=== PATIENT | male | born 1970 | race American Indian/Alaskan Native ===

== ENCOUNTER 2017-01-28 14:18 | Emergency (ER) | payer MEDICAID ==
[2017-01-28 14:41] VITALS: BP 154/106
[2017-01-28 15:05] LABS: Basophils % (Auto) 0.8 % (0.0-1.8); Eosinophils % (Auto) 0.6 % (0.0-4.3); Hematocrit 38.3 % (35.5-45.6); Hemoglobin 12.6 gm/dl (11.8-15.2); Mean Corpuscular HGB Conc 33 % (32-34); Mean Corpuscular Hemoglobin 29 pg (28-32); Mean Corpuscular Volume 88 fl (84-94); Platelet Count 251 K/mm3 (140-440); Red Blood Count 4.34 M/mm3 (3.65-5.03); Red Cell Distribution Width 14.3 % (13.2-15.2); White Blood Count 11.6 K/mm3 (4.5-11.0)
[2017-01-28 15:22] LABS: Albumin 4.2 g/dL (3.9-5); Albumin/Globulin Ratio 1.4 %; BUN/Creatinine Ratio 13.2; Bilirubin,Total 0.3 mg/dL (0.1-1.2); Calcium 9.2 mg/dL (8.4-10.2); Chloride 107.7 mmol/L (98-107); Potassium 4.1 mmol/L (3.6-5.0); Total Protein 7.1 g/dL (6.3-8.2)
--- NOTE | 2017-01-28 17:11 | Emergency Department Report ---
Entered by OLGA LIDIA OROSCO, acting as scribe for SANTOS NGUYEN PA. <SANTOS NGUYEN - Last Filed: 01/28/17 17:10> ED General Adult HPI - General Chief complaint: Hypoglycemia Stated complaint: HYPOGLYCEMIA Time Seen by Provider: 01/28/17 16:47 Source: EMS Mode of arrival: Ambulatory Limitations: No Limitations - History of Present Illness Initial comments: 46 y/o male, Hx of IDDM, presents to the ED via EMS c/o hypoglycemic episode that occurred today. The patient states that he gave himself his insulin injection this morning, but then forgot to eat food following the injection. He denies LOC at the time of the episode. EMS treatment [employer] includes D50 amp and initial glucose check of 23. Patient states his symptoms are improved in the ED following EMS D50 and eating food. MD Complaint: Hypoglycemia -: This morning Radiation: non-radiation Consistency: constant (now improved in the ED) Improves with: eating, other (EMS supplemental glucose) Worsens with: none Associated Symptoms: denies other symptoms Treatments Prior to Arrival: other (EMS supplemental glucose) - Related Data Home Medications Medication Instructions Recorded Confirmed Last Taken Insulin Lispro [HumaLOG VIAL] 0 units SQ AC 04/18/16 04/18/16 04/18/16 Losartan [Cozaar] 0 mg PO QDAY 04/18/16 04/18/16 Unknown Allergies Allergy/AdvReac Type Severity Reaction Status Date / Time No Known Allergies Allergy Unverified 05/15/16 07:36 ED Review of Systems Comment: All other systems reviewed and negative Constitutional: denies: chills, fever Respiratory: denies: shortness of breath Cardiovascular: denies: chest pain Gastrointestinal: denies: abdominal pain, nausea, vomiting, diarrhea Musculoskeletal: denies: back pain, joint swelling, arthralgia Skin: denies: rash Neurological: denies: numbness, other (LOC) ED Past Medical Hx - Past Medical History Hx Hypertension: Yes Hx CVA: Yes Hx Congestive Heart Failure: No Hx Diabetes: Yes Hx Headaches / Migraines: No Hx Seizures: Yes Hx Asthma: No Hx COPD: No Hx Tuberculosis: No (skin test positive chest xray negative) Additional medical history: brain aneurysm - Social History Smoking Status: Never Smoker Substance Use Type: None - Medications Home Medications: Home Medications Medication Instructions Recorded Confirmed Last Taken Type Insulin Lispro [HumaLOG VIAL] 0 units SQ AC 04/18/16 04/18/16 04/18/16 History Losartan [Cozaar] 0 mg PO QDAY 04/18/16 04/18/16 Unknown History ED Physical Exam - General Limitations: No Limitations General appearance: alert, in no apparent distress - Head Head exam: Present: atraumatic, normocephalic - Eye Eye exam: Present: normal appearance, PERRL, EOMI - ENT ENT exam: Present: mucous membranes moist - Neck Neck exam: Present: normal inspection. Absent: lymphadenopathy - Respiratory Respiratory exam: Present: normal lung sounds bilaterally. Absent: respiratory distress - Cardiovascular Cardiovascular Exam: Present: regular rate - GI/Abdominal GI/Abdominal exam: Present: soft, normal bowel sounds - Extremities Exam Extremities exam: Present: normal inspection - Back Exam Back exam: Present: normal inspection - Neurological Exam Neurological exam: Present: alert, oriented X3, CN II-XII intact, normal gait. Absent: motor sensory deficit - Psychiatric Psychiatric exam: Present: normal affect, normal mood - Skin Skin exam: Present: warm, dry, intact, normal color. Absent: rash, cyanosis, diaphoretic ED Course Vital Signs 01/28/17 14:37 Temperature 97.7 F Pulse Rate 73 Respiratory 20 Rate Blood Pressure 154/106 - Reevaluation(s) Reevaluation #1: 01/28/17 17:01 Patient smiling awake alert and oriented answering questions. Patient insisting that he is ready to go home's eaten multiple same which is greater ease and drank several orange juices while waiting here in the ER. ED Medical Decision Making - Lab Data Result diagrams: 01/28/17 14:49 01/28/17 14:49 ED Disposition Disposition: DISCHARGED TO HOME OR SELFCARE Is pt being admited?: No Condition: Stable Instructions: Diabetic Hypoglycemia (ED) Referrals: PRIMARY CARE,MD [Primary Care Provider] - 3-5 Days <JEREMIAH CABELLO - Last Filed: 01/28/17 19:13> ED Medical Decision Making - Lab Data Result diagrams: 01/28/17 14:49 01/28/17 14:49 This documentation as recorded by the KWESI wall JASMINE,accurately reflects the service I personally performed and the decisions made by ,SANTOS NGUYEN PA.
== END 2017-01-28 17:05 | disposition home or self-care (01) ==
LOC: ED 14:18
DX: E11.649 Type 2 diabetes mellitus with hypoglycemia without coma (principal); I10 Essential (primary) hypertension; R56.9 Unspecified convulsions; Z79.4 Long term (current) use of insulin; Z86.73 Personal history of transient ischemic attack (TIA), and cerebral infarction without residual deficits
CPT/HCPCS: 36415; 80053; 82962; 85025; 99284

== ENCOUNTER 2017-02-26 23:29 | Emergency (ER) | payer MEDICAID ==
[2017-02-27] MEDS: D50W (25GM) IV ONE ×3 (00:10→00:38)
[2017-02-27] MEDS ORDERED: D50W (25GM) IV ONE (00:29)
--- NOTE | 2017-02-27 00:40 | Emergency Department Report ---
ED General Adult HPI - General Chief complaint: Hypoglycemia Stated complaint: HYPOGLYCEMIA Time Seen by Provider: 02/27/17 00:27 Source: patient, EMS, RN notes reviewed Mode of arrival: Stretcher Limitations: No Limitations - History of Present Illness Initial comments: this is a 46-year-old male. He is previously unknown to me. Has a past medical history of diabetes, renal insufficiency, hypertension. Also has a history of brain aneurysm. The patient is brought to the hospital by EMS for hypoglycemia. As per EMS documentation, "patient complains of taking too much insulin and is unresponsive." EMS documents the patient was found lying in the floor, supine, unresponsive. Family member indicated to EMS the patient took an extra insulin shots. EMS gave D50 in the field, with clinical improvement. The patient reports to me that his sugar was high today, and that he does some self according to his sliding scale. He reports that he did not eat much of anything today. The patient had a transient episode of decreased responsiveness and hypoglycemia in the ER, he was given an additional 3 A of D50 and fed. The patient denies all complaints at this time. He specifically denies headache , neck pain, chest pain, abdominal pain, shortness of breath, negative obstructive urinary symptoms. He denies extremity weakness, and extremity numbness. -: Sudden Consistency: now resolved Improves with: eating, medication Associated Symptoms: denies other symptoms - Related Data Home Medications Medication Instructions Recorded Confirmed Last Taken Insulin Lispro [HumaLOG VIAL] 0 units SQ AC 04/18/16 04/18/16 04/18/16 Losartan [Cozaar] 0 mg PO QDAY 04/18/16 04/18/16 Unknown Allergies Allergy/AdvReac Type Severity Reaction Status Date / Time No Known Allergies Allergy Unverified 05/15/16 07:36 ED Review of Systems ROS: Stated complaint: HYPOGLYCEMIA Other details as noted in HPI Constitutional: denies: fever Eyes: denies: vision change ENT: denies: epistaxis Respiratory: denies: cough Cardiovascular: denies: chest pain Gastrointestinal: denies: abdominal pain, nausea, diarrhea Genitourinary: denies: urgency, dysuria Musculoskeletal: denies: back pain, joint swelling, arthralgia Skin: denies: rash Neurological: denies: headache Psychiatric: as per HPI ED Past Medical Hx - Past Medical History Previous Medical History?: Yes Hx Hypertension: Yes Hx CVA: Yes Hx Congestive Heart Failure: No Hx Diabetes: Yes Hx Headaches / Migraines: No Hx Seizures: Yes Hx Asthma: No Hx COPD: No Hx Tuberculosis: No (skin test positive chest xray negative) Additional medical history: brain aneurysm - Social History Smoking Status: Never Smoker Substance Use Type: None - Medications Home Medications: Home Medications Medication Instructions Recorded Confirmed Last Taken Type Insulin Lispro [HumaLOG VIAL] 0 units SQ AC 04/18/16 04/18/16 04/18/16 History Losartan [Cozaar] 0 mg PO QDAY 04/18/16 04/18/16 Unknown History ED Physical Exam - General Limitations: No Limitations General appearance: alert, in no apparent distress - Head Head exam: Present: atraumatic, normocephalic - Eye Eye exam: Present: normal appearance, PERRL, EOMI. Absent: nystagmus - ENT ENT exam: Present: normal exam, normal orophraynx, mucous membranes moist, normal external ear exam - Neck Neck exam: Present: normal inspection, full ROM. Absent: tenderness, meningismus - Respiratory Respiratory exam: Present: normal lung sounds bilaterally. Absent: respiratory distress, wheezes, rales, rhonchi, stridor, chest wall tenderness, accessory muscle use, decreased breath sounds - Cardiovascular Cardiovascular Exam: Present: regular rate, normal rhythm, normal heart sounds. Absent: bradycardia, tachycardia, irregular rhythm, systolic murmur, diastolic murmur, rubs, gallop - GI/Abdominal GI/Abdominal exam: Present: soft, normal bowel sounds. Absent: distended, tenderness, guarding, rebound, rigid, pulsatile mass - Rectal Rectal exam: Present: deferred - Extremities Exam Extremities exam: Present: normal inspection, full ROM, normal capillary refill. Absent: tenderness, pedal edema, joint swelling - Back Exam Back exam: Present: normal inspection, full ROM. Absent: tenderness, CVA tenderness (R), CVA tenderness (L), muscle spasm, paraspinal tenderness, vertebral tenderness - Neurological Exam Neurological exam: Present: alert, oriented X3, normal gait, other (Extraocular movements intact. Tongue midline. No facial droop. Facial sensation intact to light touch in the V1, V2, V3 distribution bilaterally. 5 and 5 strength in 4 extremities.. Sensation is intact to light touch in 4 extremities.). Absent : motor sensory deficit - Psychiatric Psychiatric exam: Present: normal affect, normal mood - Skin Skin exam: Present: warm, dry, intact, normal color. Absent: rash ED Course Vital Signs 02/27/17 02/27/17 02/27/17 00:12 00:16 00:21 Temperature 97.5 F L Pulse Rate 70 Respiratory 18 16 Rate Blood Pressure 146/89 Blood Pressure [Left] O2 Sat by Pulse 99 Oximetry 02/27/17 02/27/17 02/27/17 00:30 01:00 01:06 Temperature 97.4 F L Pulse Rate 63 76 Respiratory 17 17 Rate Blood Pressure 152/92 143/80 Blood Pressure [Left] O2 Sat by Pulse 98 100 Oximetry 02/27/17 02/27/17 01:30 02:09 Temperature 98.2 F Pulse Rate 72 81 Respiratory 21 18 Rate Blood Pressure 139/83 Blood Pressure 139/85 [Left] O2 Sat by Pulse 98 99 Oximetry - Reevaluation(s) Reevaluation #1: 02/27/17 01:22 differential diagnosis: Pneumonia, hypoglycemia, urinary tract infection, hypoglycemia secondary to overzealous insulin and menstruation. Assessment and plan: 46-year-old male with hypoglycemia in the context of poor oral intake and extra insulin injection. He is afebrile with reassuring vital signs, has a GCS of 15, with an NIH score of 0.Patient is clinically sober at this time. The cervical spine is cleared through nexus and [place] c spine rule Patient's laboratory studies are unremarkable. His renal insufficiency is chronic. Chest x-ray unremarkable, urinalysis not consistent with urinary tract infection. The patient is observed in the ER for a prolonged period of time. After eating, and receiving 3 A of D50, Accu-Chek remained stable. The patient is going to be discharged with her brother/family member, who feels comfortable to watch the patient and to monitor his blood sugar at home. Reevaluation #2: 02/27/17 02:13 repeat Accu-Chek appropriate. The patient's family to pick him up. The patient retains normal mental status. His repeat neurologic examination is unremarkable. He has been observed in the ER for 3 hours. He will be discharged with family, who feel comfortable to watch him. Return precautions are reviewed. ED Medical Decision Making - Lab Data Result diagrams: 02/27/17 00:24 02/27/17 00:24 Vital Signs 02/27/17 02/27/17 02/27/17 00:12 00:16 00:21 Temperature 97.5 F L Pulse Rate 70 Respiratory 18 16 Rate Blood Pressure 146/89 O2 Sat by Pulse 99 Oximetry 02/27/17 02/27/17 02/27/17 00:30 01:00 01:06 Temperature 97.4 F L Pulse Rate 63 76 Respiratory 17 17 Rate Blood Pressure 152/92 143/80 O2 Sat by Pulse 98 100 Oximetry Labs 02/27/17 02/27/17 02/27/17 00:24 00:24 00:37 WBC 10.0 RBC 3.95 Hgb 11.7 L Hct 35.7 MCV 91 MCH 30 MCHC 33 RDW 14.9 Plt Count 235 Lymph % (Auto) 13.3 L [place] % (Auto) 7.4 H Eos % (Auto) 1.1 Baso % (Auto) 0.9 Lymph # 1.3 [place] # 0.7 Eos # 0.1 Baso # 0.1 Seg Neutrophils % 77.3 H Seg Neutrophils # 7.7 VBG pH 7.332 Sodium 144 Potassium 3.3 L Chloride 105.6 Carbon Dioxide 24 Anion Gap 18 BUN 26 H Creatinine 2.4 H Estimated GFR 35 BUN/Creatinine Ratio 10.83 Glucose 58 L POC Glucose Calcium 8.6 02/27/17 01:08 WBC RBC Hgb Hct MCV MCH MCHC RDW Plt Count Lymph % (Auto) [place] % (Auto) Eos % (Auto) Baso % (Auto) Lymph # [place] # Eos # Baso # Seg Neutrophils % Seg Neutrophils # VBG pH Sodium Potassium Chloride Carbon Dioxide Anion Gap BUN Creatinine Estimated GFR BUN/Creatinine Ratio Glucose POC Glucose 205 H Calcium - Radiology Data Radiology results: image reviewed interpreted by me: X-ray of the chest is negative for acute disease. Critical care attestation.: If time is entered above; I have spent that time in minutes in the direct care of this critically ill patient, excluding procedure time. ED Disposition Clinical Impression: Hypoglycemia Disposition: DISCHARGED TO HOME OR SELFCARE Is pt being admited?: No Does the pt Need Aspirin: No Condition: Stable Instructions: Diabetic Hypoglycemia (ED) Additional Instructions: Continue current outpatient medications. Make certain to eat if you are taking insulin. Follow-up with the primary care doctor within the next week. Return to the ER right away with fevers or chills, chest pain or shortness of breath, intractable nausea or vomiting, inability to tolerate liquid feeds. Dr. Cantrell is a local primary care doctor. [facility] is a local medical clinic. Referrals: PRIMARY CAREMD [Primary Care Provider] - 3-5 Days JAYCEE CANTRELL MD [Staff Physician] - 3-5 Days [facility] [Provider Group] - 3-5 Days
[2017-02-27 01:00] LABS: Basophils % (Auto) 0.9 % (0.0-1.8); Eosinophils % (Auto) 1.1 % (0.0-4.3); Hematocrit 35.7 % (35.5-45.6); Hemoglobin 11.7 gm/dl (11.8-15.2); Mean Corpuscular HGB Conc 33 % (32-34); Mean Corpuscular Hemoglobin 30 pg (28-32); Mean Corpuscular Volume 91 fl (84-94); Platelet Count 235 K/mm3 (140-440); Red Blood Count 3.95 M/mm3 (3.65-5.03); Red Cell Distribution Width 14.9 % (13.2-15.2)
[2017-02-27 01:07] LABS: BUN/Creatinine Ratio 10.83; Calcium 8.6 mg/dL (8.4-10.2); Chloride 105.6 mmol/L (98-107); Potassium 3.3 mmol/L (3.6-5.0)
[2017-02-27 01:47] LABS: Bilirubin,Urine NEG (Negative); Blood,Urine SM (Negative); Ketones,Urine NEG (Negative); Leukocyte Esterase,Urine NEG (Negative); Nitrite,Urine NEG (Negative); Urobilinogen,Urine < 2.0 mg/dL (<2.0)
[2017-02-27 02:11] VITALS: BP 139/85
--- NOTE | 2017-02-27 08:39 | XRay Report ---
AP CHEST: History: Cough. AP view of the chest demonstrates a normal mediastinal and cardiac contour with clear lungs and normal bony and soft tissue structures. IMPRESSION: Normal AP chest.
== END 2017-02-27 02:28 | disposition home or self-care (01) ==
LOC: ED 23:29
DX: E11.649 Type 2 diabetes mellitus with hypoglycemia without coma (principal); I10 Essential (primary) hypertension; Z86.73 Personal history of transient ischemic attack (TIA), and cerebral infarction without residual deficits; R56.9 Unspecified convulsions; Z79.4 Long term (current) use of insulin
CPT/HCPCS: 36415; 51701; 71010; 80048; 81001; 82805; 82962; 85025; 96374

== ENCOUNTER 2020-12-26 07:12 | Observation (INO) | payer MEDICAID ==
[2020-12-26] MEDS ORDERED: DEXTROSE 50% IN WATER (25GM) 50 ML SYRINGE IV ONE ×2 (07:20→07:26)
--- NOTE | 2020-12-26 07:32 | Emergency Department Report ---
ED General Adult HPI - General Chief complaint: Hypoglycemia Stated complaint: LOW BLOOD SUGAR Time Seen by Provider: 12/26/20 07:21 Source: EMS Mode of arrival: Stretcher Limitations: Altered Mental Status - History of Present Illness Initial comments: Patient is 50 years old male with history of brain aneurysm, diabetes and CVA. Patient brought to the emergency room via EMS from home after patient roommate called and said that patient is not on responding to him. EMS stated that patient blood glucose was 50. Patient given dextrose and start working up. Upon arrival to the ER patient still obtunded, repeat blood glucose showed a 30. Patient received D50 and started on dextrose 10. Patient immediately start working up. Patient is currently alert, oriented x3 in no acute distress. Patient denied any chest pain, shortness of breath, focal weakness numbness or tingling sensation. He also denied any headache or neck pain. -: Sudden, This morning - Related Data Home Medications Medication Instructions Recorded Confirmed Last Taken Aspirin [Lo-Dose Aspirin EC] 81 mg PO DAILY 09/02/17 09/02/17 09/01/17 AtorvaSTATin [Lipitor] 40 mg PO QHS 09/02/17 09/02/17 09/01/17 Insulin Glargine,Hum.rec.anlog 10 units SQ QHS 09/02/17 09/02/17 09/01/17 [Lantus] Lispro Insulin [HumaLOG] 10 unit SQ DAILY 09/02/17 09/02/17 09/01/17 Losartan/Hydrochlorothiazide 1 tab PO QDAY 09/02/17 09/02/17 09/01/17 [Hyzaar 100-25 TAB] Pioglitazone HCl [Actos] 45 mg PO DAILY 09/02/17 09/02/17 09/01/17 amLODIPine 10 mg PO DAILY 09/02/17 09/02/17 09/01/17 Allergies Allergy/AdvReac Type Severity Reaction Status Date / Time No Known Allergies Allergy Unverified 05/15/16 07:36 ED Review of Systems ROS: Stated complaint: LOW BLOOD SUGAR Other details as noted in HPI Comment: All other systems reviewed and negative Constitutional: denies: chills, fever Respiratory: denies: cough, shortness of breath, SOB with exertion, SOB at rest Cardiovascular: denies: chest pain Gastrointestinal: denies: abdominal pain, nausea, vomiting, diarrhea, constipation, hematemesis, melena, hematochezia Musculoskeletal: denies: back pain Neurological: confusion. denies: headache, weakness, numbness, paresthesias ED Past Medical Hx - Past Medical History Hx Hypertension: Yes Hx CVA: Yes Hx Congestive Heart Failure: No Hx Diabetes: Yes Hx Headaches / Migraines: No Hx Seizures: Yes Hx Asthma: No Hx COPD: No Hx Tuberculosis: No (skin test positive chest xray negative) Additional medical history: brain aneurysm - Social History Smoking Status: Current Every Day Smoker - Medications Home Medications: Home Medications Medication Instructions Recorded Confirmed Last Taken Type Aspirin [Lo-Dose Aspirin EC] 81 mg PO DAILY 09/02/17 09/02/17 09/01/17 History AtorvaSTATin [Lipitor] 40 mg PO QHS 09/02/17 09/02/17 09/01/17 History Insulin Glargine,Hum.rec.anlog 10 units SQ QHS 09/02/17 09/02/17 09/01/17 History [Lantus] Lispro Insulin [HumaLOG] 10 unit SQ DAILY 09/02/17 09/02/17 09/01/17 History Losartan/Hydrochlorothiazide 1 tab PO QDAY 09/02/17 09/02/17 09/01/17 History [Hyzaar 100-25 TAB] Pioglitazone HCl [Actos] 45 mg PO DAILY 09/02/17 09/02/17 09/01/17 History amLODIPine 10 mg PO DAILY 09/02/17 09/02/17 09/01/17 History ED Physical Exam - General Limitations: Altered Mental Status General appearance: alert, in no apparent distress - Head Head exam: Present: atraumatic, normocephalic, normal inspection - Eye Eye exam: Present: normal appearance, PERRL - ENT ENT exam: Present: normal exam, normal orophraynx, mucous membranes moist - Neck Neck exam: Present: normal inspection, full ROM. Absent: tenderness, meningismus - Respiratory Respiratory exam: Present: normal lung sounds bilaterally - Cardiovascular Cardiovascular Exam: Present: regular rate, normal rhythm, normal heart sounds - GI/Abdominal GI/Abdominal exam: Present: soft, normal bowel sounds. Absent: distended, tenderness, guarding, rebound, rigid, organomegaly, mass, bruit, pulsatile mass, hernia - Extremities Exam Extremities exam: Present: normal inspection, full ROM, normal capillary refill. Absent: pedal edema, calf tenderness - Back Exam Back exam: Present: normal inspection, full ROM. Absent: CVA tenderness (R), CVA tenderness (L) - Neurological Exam Neurological exam: Present: alert, oriented X3 - Psychiatric Psychiatric exam: Present: normal mood - Skin Skin exam: Present: warm, intact, normal color ED Course Vital Signs 12/26/20 12/26/20 12/26/20 07:27 07:30 07:31 Temperature 97.4 F L 97.4 F L Pulse Rate 91 H 91 H Respiratory 17 17 18 Rate Blood Pressure 173/107 Blood Pressure 173/107 [Left] O2 Sat by Pulse 99 99 Oximetry 12/26/20 08:17 Temperature Pulse Rate 82 Respiratory 16 Rate Blood Pressure Blood Pressure 169/104 [Left] O2 Sat by Pulse 100 Oximetry - Reevaluation(s) Reevaluation #1: 12/26/20 09:57 Patient now is alert, oriented x3 in no acute distress. Dextrose 10 at a rate of 125 mL/h is going. I discussed with the patient his kidney function he stated that he was told that his creatinine was 8 last time and they consider dialysis but he refused. Currently patient is denying any shortness of breath. His potassium is normal. ED Medical Decision Making - Lab Data Result diagrams: 12/26/20 08:01 12/26/20 08:01 - EKG Data -: EKG Interpreted by Me EKG shows normal: sinus rhythm Rate: normal - EKG Data Interpretation: no acute changes - Radiology Data Radiology results: report reviewed - Medical Decision Making Patient is 50 years old male with history of brain aneurysm, diabetes and CVA. Patient brought to the emergency room via EMS from home after patient roommate called and said that patient is not on responding to him. EMS stated that patient blood glucose was 50. Patient given dextrose and start working up. Upon arrival to the ER patient still obtunded, repeat blood glucose showed a 30. Patient received D50 and started on dextrose 10. Patient immediately start working up. Patient is currently alert, oriented x3 in no acute distress. Patient denied any chest pain, shortness of breath, focal weakness numbness or tingling sensation. He also denied any headache or neck pain. Labs reviewed and is unremarkable except for evaded creatinine and BUN which is chronic for patient. Patient stated that he took his insulin last night but he did not eat. CT brain is negative for acute finding. Chest x-ray is unremarkable. I discussed the patient with Dr. Gilles Lugo, he agreed to admit the patient to medical service for further management. Critical Care Time: Yes Critical care time in (mins) excluding proc time.: 30 Critical care attestation.: If time is entered above; I have spent that time in minutes in the direct care of this critically ill patient, excluding procedure time. ED Disposition Clinical Impression: Altered mental status, Elevated troponin, Acute metabolic encephalopathy due to hypoglycemia Disposition: OP ADMIT IP TO THIS HOSP Is pt being admited?: Yes Condition: Stable Referrals: PRIMARY CARE, [Primary Care Provider] - 3-5 Days
[2020-12-26 07:54] LABS: Bilirubin,Urine NEG (Negative); Blood,Urine NEG (Negative); Color,Urine Straw (Yellow); Urobilinogen,Urine < 2.0 mg/dL (<2.0); WBC,Urine < 1.0 /HPF (0.0-6.0)
[2020-12-26] MEDS ORDERED: DEXTROSE 10% IN WATER 1,000 ML IV SCH (08:00)
--- NOTE | 2020-12-26 08:13 | XRay Report ---
CHEST 1 VIEW INDICATION: Altered Mental Status. COMPARISON: None FINDINGS: Support devices: None. Heart: Within normal limits. Lungs/Pleura: No acute air space or interstitial disease. Additional findings: None. IMPRESSION: No acute findings. Signer Name: Elder Singh Jr, MD Signed: 12/26/2020 8:09 AM Workstation Name: [id number]
[2020-12-26 08:33] LABS: Basophils # (Auto) 0.1 K/mm3 (0.0-0.1); Basophils % (Auto) 0.8 % (0.0-1.8); Eosinophils % (Auto) 0.1 % (0.0-4.3); Hematocrit 31.3 % (35.5-45.6); Hemoglobin 10.3 gm/dl (11.8-15.2); Lymphocytes # (Auto) 0.7 K/mm3 (1.2-5.4); Lymphocytes % (Auto) 8.5 % (13.4-35.0); Mean Corpuscular HGB Conc 33 % (32-34); Mean Corpuscular Volume 96 fl (84-94); Monocytes # (Auto) 0.3 K/mm3 (0.0-0.8); Monocytes % (Auto) 3.8 % (0.0-7.3); Platelet Count 203 K/mm3 (140-440); Red Blood Count 3.27 M/mm3 (3.65-5.03); Red Cell Distribution Width 16.2 % (13.2-15.2)
[2020-12-26 08:45] LABS: Alanine Aminotransferase 56 units/L (7-56); Albumin 4.1 g/dL (3.9-5)
[2020-12-26 09:01] LABS: Bilirubin,Direct < 0.2 mg/dL (0-0.2)
--- NOTE | 2020-12-26 09:05 | Cat Scan Report ---
CT HEAD WITHOUT CONTRAST INDICATION : Altered Mental Status. TECHNIQUE: Axial imaging performed from the skull apex through the skull base without the use of con trast. Sagittal and coronal reformatted images. All CT scans at this location are performed using C T dose reduction for ALARA by means of automated exposure control. COMPARISON: 09/02/2017 FINDINGS: Parenchyma: No acute intracranial hemorrhage or parenchymal abnormality. Stable chronic lacunar infa rct in the left anterior thalamus. Stable 1 cm chronic infarct in the posterior left cerebellar hemis phere. Stable mild encephalomalacia in the right frontal lobe at site of previous ventricular cathete r. No evidence for hemorrhage or extra-axial fluid collection. Ventricles: Ventricles are normal in size and appear symmetric. Bones: No acute osseous abnormality. Sinuses: Sinuses and mastoid air cells are clear. Soft tissues: Soft tissues including the orbits appear normal. IMPRESSION: No acute abnormality. No significant change since 09/02/2017. Signer Name: Elder Singh Jr, MD Signed: 12/26/2020 9:01 AM Workstation Name: [id number]
[2020-12-26 09:39] LABS: Chol/HDL Ratio 2.67 %
[2020-12-26] MEDS ORDERED: ZOLPIDEM 5 MG TAB PO PRN (11:29)
[2020-12-26] MEDS ORDERED: ONDANSETRON 4 MG/2 ML INJ IV PRN (11:29)
[2020-12-26] MEDS ORDERED: MORPHINE 2 MG/1 ML INJ IV PRN (11:29)
[2020-12-26] MEDS ORDERED: ACETAMINOPHEN 325 MG TAB PO PRN (11:29)
[2020-12-26] MEDS ORDERED: DEXTROSE 50% IN WATER (25GM) 50 ML SYRINGE IV PRN (11:29)
--- NOTE | 2020-12-26 11:40 | History and Physical Report ---
History of Present Illness Date of examination: 12/26/20 Date of admission: 12/26/20 10:28 Chief complaint: Altered mental status History of present illness: 50-year-old male with a history of CVA, brain aneurysm, diabetes, chronic kidney disease stage III presents to the ED after a brief period of unresponsiveness. Patient was noted by roommate to be unresponsive to both verbal and tactile stimulus. 911 was called. Accu-Chek was obtained in the field with a measurement of 50. Patient was evaluated again upon ED and assessment revealed Accu-Chek of 30 at the time. Patient was placed on D10 and immediately began to awaken and become more responsive. Patient states this is happened maybe once before. Patient took his insulin and went to sleep and did not eat. Patient was aware that this was not the right thing to do was very educated. At present patient is alert oriented a little weak and listless but almost at baseline. Currently on D10 Past History Past Medical History: diabetes, hypertension, stroke Past Surgical History: No surgical history Social history: single, lives with family, smoking, full code. denies: alcohol abuse, prescription drug abuse, IV drug use Family history: diabetes, hypertension Medications and Allergies Allergies Allergy/AdvReac Type Severity Reaction Status Date / Time No Known Allergies Allergy Unverified 05/15/16 07:36 Home Medications Medication Instructions Recorded Confirmed Last Taken Type Aspirin [Lo-Dose Aspirin EC] 81 mg PO DAILY 09/02/17 12/26/20 09/01/17 History Insulin Glargine,Hum.rec.anlog 13 units SQ BID 09/02/17 12/26/20 09/01/17 History [Lantus] amLODIPine 10 mg PO DAILY 09/02/17 12/26/20 09/01/17 History Insulin Aspart (Nf) [Novolog] 0 unit SQ AC 12/26/20 12/26/20 Unknown History calcitrioL [Rocaltrol] 1 cap PO DAILY 12/26/20 12/26/20 Unknown History Active Meds: Active Medications Acetaminophen (Acetaminophen 325 Mg Tab) 650 mg PO Q4H PRN PRN Reason: Pain MILD(1-3)/Fever >100.5/BROWN Dextrose (D10w) 1,000 mls @ 125 mls/hr IV DIRECT LYN Last Admin: 12/26/20 08:16 Dose: 125 mls/hr Documented by: Review of Systems Constitutional: weakness, no weight loss, no weight gain, no fever, no chills, no sweats, no anorexia, no fatigue, no lethargy, no poor appetite, no daytime sleepiness, no chronic pain Ears, nose, mouth and throat: no ear pain, no tinnitis, no nasal discharge, no dental pain, no dysphagia, no swelling in throat, no headache, no vertigo, no n wyatt fullness/pressure Cardiovascular: no dyspnea on exertion, no claudication, no high blood pressure, no leg edema, no decreased exercise tolerance, no other Respiratory: no hemoptysis, no congestion Gastrointestinal: no abdominal pain, no nausea, no vomiting, no melena Genitourinary Male: no nocturia, no erectile dysfunction, no genital sores, no polyuria Rectal: no hemorrhoids, no flatulence Musculoskeletal: no leg numbness/tingling, no fractures Neurological: no head injury, no transient paralysis, no migraines, no change in speech Endocrine: polydipsia, no cold intolerance, no heat intolerance, no polyphagia, no excessive thirst, no excessive sweating, no increase in ring/shoe/hat size, no deepening of the voice, no thyroid mass, no high blood sugars, no recent glucocorticoid use Hematologic/Lymphatic: no easy bruising, no lymphadenopathy, no lymphedema Allergic/Immunologic: no urticaria, no anaphylaxis, no gluten intolerance, no s easonal allergies Exam - Constitutional Vitals: Temp Pulse Resp BP Pulse Ox 97.4 F L 84 18 169/99 99 12/26/20 07:30 12/26/20 11:20 12/26/20 11:20 12/26/20 11:20 12/26/20 11:20 General appearance: Present: no acute distress, well-nourished - EENT Eyes: Present: PERRL ENT: hearing intact, clear oral mucosa - Neck Neck: Present: supple, normal ROM - Respiratory Respiratory effort: normal Respiratory: bilateral: CTA - Cardiovascular Heart Sounds: Present: S1 & S2. Absent: rub, click - Extremities Extremities: pulses symmetrical, No edema Peripheral Pulses: within normal limits - Abdominal General gastrointestinal: Present: soft, non-tender, non-distended, normal bowel sounds Male genitourinary: Present: normal - Integumentary Integumentary: Present: clear, warm, dry - Musculoskeletal Musculoskeletal: gait normal, strength equal bilaterally - Psychiatric Psychiatric: appropriate mood/affect, intact judgment & insight - Neurologic Neurologic: CNII-XII intact, moves all extremities HEART Score - HEART Score Troponin: Troponin T 0.085 ng/mL (0.00-0.029) H 12/26/20 08:01 Results - Labs CBC & Chem 7: 12/26/20 08:01 12/26/20 08:01 Labs: Abnormal lab results 12/26/20 12/26/20 12/26/20 Range/Units 07:20 07:57 08:01 RBC 3.27 L (3.65-5.03) M/mm3 Hgb 10.3 L (11.8-15.2) gm/dl Hct 31.3 L (35.5-45.6) % MCV 96 H (84-94) fl RDW 16.2 H (13.2-15.2) % Lymph % (Auto) 8.5 L (13.4-35.0) % Lymph # (Auto) 0.7 L (1.2-5.4) K/mm3 Seg Neutrophils % 86.8 H (40.0-70.0) % BUN (9-20) mg/dL Creatinine (0.8-1.3) mg/dL Glucose (75-100) mg/dL POC Glucose 31 L 137 H (70-105) mg/dL AST (5-40) units/L Alkaline Phosphatase (35-129) units/L Ammonia (25-60) umol/L Troponin T (0.00-0.029) ng/mL 12/26/20 12/26/20 12/26/20 Range/Units 08:01 08:01 08:01 RBC (3.65-5.03) M/mm3 Hgb (11.8-15.2) gm/dl Hct (35.5-45.6) % MCV (84-94) fl RDW (13.2-15.2) % Lymph % (Auto) (13.4-35.0) % Lymph # (Auto) (1.2-5.4) K/mm3 Seg Neutrophils % (40.0-70.0) % BUN 83 H (9-20) mg/dL Creatinine 6.2 H (0.8-1.3) mg/dL Glucose 158 H (75-100) mg/dL POC Glucose (70-105) mg/dL AST 55 H (5-40) units/L Alkaline Phosphatase 133 H (35-129) units/L Ammonia 10.0 L (25-60) umol/L Troponin T 0.085 H (0.00-0.029) ng/mL 12/26/20 Range/Units 08:33 RBC (3.65-5.03) M/mm3 Hgb (11.8-15.2) gm/dl Hct (35.5-45.6) % MCV (84-94) fl RDW (13.2-15.2) % Lymph % (Auto) (13.4-35.0) % Lymph # (Auto) (1.2-5.4) K/mm3 Seg Neutrophils % (40.0-70.0) % BUN (9-20) mg/dL Creatinine (0.8-1.3) mg/dL Glucose (75-100) mg/dL POC Glucose 211 H (70-105) mg/dL AST (5-40) units/L Alkaline Phosphatase (35-129) units/L Ammonia (25-60) umol/L Troponin T (0.00-0.029) ng/mL Assessment and Plan - Patient Problems (1) Acute metabolic encephalopathy due to hypoglycemia Current Visit: Yes Status: Acute Plan to address problem: Now resolved since starting D10. Patient alert oriented understands that he just got tired went to sleep. (2) Acute on chronic renal failure Current Visit: No Status: Acute Plan to address problem: Patient has chronic renal failure. This is been worked up by Dr. Grigsby nephrology. Patient has been told he required hemodialysis on several occasions patient understands but refusing dialysis at this particular time. (3) DVT prophylaxis Current Visit: No Status: Acute (4) Hypertension Current Visit: No Status: Acute Qualifiers: Hypertension type: essential hypertension Qualified Code(s): I10 - Esse ntial (primary) hypertension Plan to address problem: Presently well controlled with amlodipine (5) Hypoglycemia Current Visit: No Status: Acute Plan to address problem: Secondary to receiving insulin without food. Patient has now overcorrected with D10. Will place patient back on his routine schedule insulin that he takes at home. (6) Insulin dependent diabetes mellitus Current Visit: No Status: Acute
[2020-12-26] MEDS: ASPIRIN EC 81 MG TAB PO SCH (12:30)
[2020-12-26] MEDS: INSULIN LISPRO 100 UNIT/ML SUB-Q SCH ×2 (13:09→18:18)
[2020-12-26] MEDS: INSULIN GLARGINE 100 UNITS/ML SUB-Q SCH ×2 (14:41→22:51)
[2020-12-26] MEDS: CALCITRIOL 0.5 MCG CAP PO SCH (14:41)
[2020-12-26] MEDS ORDERED: amLODIPine 10 MG TAB PO SCH (16:46)
[2020-12-26] MEDS: FAMOTIDINE 20 MG/2 ML INJ IV SCH (22:52)
[2020-12-26] MEDS ORDERED: D5W 50 ML IVPB IV ONE (23:45)
[2020-12-27 06:31] LABS: Calcium 8.9 mg/dL (8.4-10.2)
[2020-12-27] MEDS: INSULIN LISPRO 100 UNIT/ML SUB-Q SCH ×3 (06:32→11:33)
--- NOTE | 2020-12-27 08:08 | Discharge Summary ---
Providers - Providers Date of Admission: 12/26/20 10:28 Date of discharge: 12/27/20 Attending physician: UMA MUÑOZ Primary care physician: BATTERY MECHANIC Hospitalization Reason for admission: hypoglycemia Condition: Stable Hospital course: 50-year-old male with a history of CVA, brain aneurysm, diabetes, chronic kidney disease stage III presents to the ED after a brief period of unresponsiveness. Patient was noted by roommate to be unresponsive to both verbal and tactile stimulus. 911 was called. Accu-Chek was obtained in the field with a measurement of 50. Patient was evaluated again upon ED and assessment revealed Accu-Chek of 30 at the time. Patient was placed on D10 and immediately began to awaken and become more responsive. Patient states this is happened maybe once before. Patient took his insulin and went to sleep and did not eat. Patient was aware that this was not the right thing to do was very educated. The patient was initially treated with D10 and return back to baseline mental status. The patient was admitted with diagnosis of hypoglycemia and metabolic encephalopathy. The patient continued to have IV fluid of D5 and was monitored for 24 hours. BG remained stable during hospitalization. Therefore, patient is felt to have received maximal hospital benefit. Dedicated discharge time 35 minutes. Disposition: DC-01 TO HOME OR SELFCARE Time spent for discharge: 35 - Discharge Diagnoses (1) Acute metabolic encephalopathy due to hypoglycemia Status: Acute Core Measure Documentation - Palliative Care Palliative Care/ Comfort Measures: Not Applicable - Core Measures Any of the following diagnoses?: none Exam - Constitutional Vitals: Temp Pulse Resp BP Pulse Ox 98.3 F 79 18 144/89 98 12/27/20 04:25 12/27/20 04:25 12/27/20 04:25 12/27/20 04:25 12/27/20 04:25 General appearance: Present: no acute distress, well-nourished - EENT Eyes: Present: PERRL ENT: hearing intact, clear oral mucosa - Neck Neck: Present: supple, normal ROM - Respiratory Respiratory effort: normal Respiratory: bilateral: CTA - Cardiovascular Heart Sounds: Present: S1 & S2. Absent: rub, click - Extremities Extremities: pulses symmetrical, No edema Peripheral Pulses: within normal limits - Abdominal General gastrointestinal: Present: soft, non-tender, non-distended, normal bowel sounds Male genitourinary: Present: normal - Integumentary Integumentary: Present: clear, warm, dry - Musculoskeletal Musculoskeletal: gait normal, strength equal bilaterally - Psychiatric Psychiatric: appropriate mood/affect, intact judgment & insight - Neurologic Neurologic: CNII-XII intact, moves all extremities Plan Activity: advance as tolerated Weight Bearing Status: Weight Bear as Tolerated Diet: diabetic Follow up with: PRIMARY CAREMD [Primary Care Provider] - 3-5 Days JULIET GONZALEZ MD [Staff Physician] - 7 Days
[2020-12-27] MEDS: FAMOTIDINE 20 MG/2 ML INJ IV SCH (09:20)
[2020-12-27] MEDS: ASPIRIN EC 81 MG TAB PO SCH (09:20)
[2020-12-27] MEDS: CALCITRIOL 0.5 MCG CAP PO SCH (09:20)
[2020-12-27] MEDS ORDERED: amLODIPine 10 MG TAB PO SCH (10:00)
--- NOTE | 2020-12-27 10:07 | Consultation ---
History of Present Illness - Reason for Consult Consult date: 12/27/20 chronic renal failure Past History Past Medical History: diabetes, hypertension, stroke Past Surgical History: No surgical history Social history: single, lives with family, smoking, full code. denies: alcohol abuse, prescription drug abuse, IV drug use Family history: diabetes, hypertension Medications and Allergies Allergies Allergy/AdvReac Type Severity Reaction Status Date / Time No Known Allergies Allergy Unverified 05/15/16 07:36 Home Medications Medication Instructions Recorded Confirmed Last Taken Type Aspirin [Lo-Dose Aspirin EC] 81 mg PO DAILY 09/02/17 12/26/20 09/01/17 History Insulin Glargine,Hum.rec.anlog 13 units SQ BID 09/02/17 12/26/20 09/01/17 History [Lantus] amLODIPine 10 mg PO DAILY 09/02/17 12/26/20 09/01/17 History Insulin Aspart (Nf) [Novolog] 0 unit SQ AC 12/26/20 12/26/20 Unknown History calcitrioL [Rocaltrol] 1 cap PO DAILY 12/26/20 12/26/20 Unknown History Active Meds: Active Medications Acetaminophen (Acetaminophen 325 Mg Tab) 650 mg PO Q4H PRN PRN Reason: Pain MILD(1-3)/Fever >100.5/BROWN Amlodipine Besylate (Amlodipine 10 Mg Tab) 10 mg PO DAILY [facility] Last Admin: 12/27/20 09:21 Dose: 10 mg Documented by: Aspirin (Aspirin Ec 81 Mg Tab) 81 mg PO DAILY [facility] Last Admin: 12/27/20 09:20 Dose: 81 mg Documented by: Calcitriol (Calcitriol 0.5 Mcg Cap) 0.5 mcg PO DAILY [facility] Last Admin: 12/27/20 09:20 Dose: 0.5 mcg Documented by: Dextrose (Dextrose 50% In Water (25gm) 50 Ml Syringe) 50 ml IV Q30MIN PRN; Protocol PRN Reason: Hypoglycemia Last Admin: 12/26/20 23:22 Dose: 50 ml Documented by: Famotidine (Famotidine 20 Mg/2 Ml Inj) 10 mg IV BID [facility] Last Admin: 12/27/20 09:20 Dose: 10 mg Documented by: Insulin Glargine (Insulin Glargine 100 Units/Ml) 13 units SUB-Q BID [facility] Stop: 12/28/20 23:59 Last Admin: 12/26/20 22:51 Dose: Not Given Documented by: Insulin Human Lispro (Insulin Lispro 100 Unit/Ml) 0 unit SUB-Q Q6HR [facility]; Protocol Stop: 12/28/20 23:59 Last Admin: 12/27/20 06:32 Dose: Not Given Documented by: Morphine Sulfate (Morphine 2 Mg/1 Ml Inj) 2 mg IV Q4H PRN PRN Reason: Pain, Moderate (4-6) Ondansetron HCl (Ondansetron 4 Mg/2 Ml Inj) 4 mg IV Q8H PRN PRN Reason: Nausea And Vomiting Sodium Chloride (Sodium Chloride 0.9% 10 Ml Flush Syringe) 10 ml IV BID [facility] Last Admin: 12/26/20 22:52 Dose: 10 ml Documented by: Sodium Chloride (Sodium Chloride 0.9% 10 Ml Flush Syringe) 10 ml IV PRN PRN PRN Reason: LINE FLUSH Zolpidem Tartrate (Zolpidem 5 Mg Tab) 5 mg PO QHS PRN PRN Reason: Insomnia Exam - Vital Signs Vital signs: Vital Signs Temp Pulse Resp BP Pulse Ox 97.4 F L 91 H 17 173/107 99 12/26/20 07:27 12/26/20 07:27 12/26/20 07:27 12/26/20 07:27 12/26/20 07:27 Results - Lab Results 12/26/20 08:01 12/27/20 04:52 Most recent lab results Calcium 8.9 mg/dL (8.4-10.2) 12/27/20 04:52
[2020-12-27] MEDS: INSULIN GLARGINE 100 UNITS/ML SUB-Q SCH (10:08)
[2020-12-27] MEDS ORDERED: FLU VACC QUAD 2020-2021 (6 months +)/PF 60 0.5 ML SYRINGE IM ONE (12:00)
[2020-12-27 12:10] VITALS: BP 139/86
[2020-12-27] MEDS ORDERED: FAMOTIDINE 10 MG TAB PO SCH (22:00)
== END 2020-12-27 15:45 | disposition home or self-care (01) ==
LOC: ED 07:12 → 4A 10:28 → OBSVTOIN 12-27 09:06 → INTOOBSV 12-27 09:06
PROVIDERS: ADMIT Internal Medicine; ATTEND Hospitalist
DX: G93.41 Metabolic encephalopathy (principal); N17.9 Acute kidney failure, unspecified; R41.82 Altered mental status, unspecified; I10 Essential (primary) hypertension; E11.649 Type 2 diabetes mellitus with hypoglycemia without coma; F17.210 Nicotine dependence, cigarettes, uncomplicated; R77.8 Other specified abnormalities of plasma proteins; Z86.73 Personal history of transient ischemic attack (TIA), and cerebral infarction without residual deficits; Z79.4 Long term (current) use of insulin; Z79.82 Long term (current) use of aspirin
CPT/HCPCS: 36415; 70450; 71045; 80048; 80061; 80076; 81001; 82140; 82947; 82962; 84484; 85025; 93005; 96361; 96372; 96374; 96375; 96376; 99291; G0378; 80320; 90686; G0480; J1815

== ENCOUNTER 2021-04-23 12:30 | Inpatient (IN) | payer MEDICAID ==
[2021-04-23] MEDS ORDERED: ONDANSETRON 4 MG/2 ML INJ IV ONE (12:55)
[2021-04-23] MEDS ORDERED: LACTATED RINGERS 1,000 ML IV ONE (12:56)
--- NOTE | 2021-04-23 13:01 | Emergency Department Report ---
ED General Adult HPI - General Chief complaint: Weakness Stated complaint: weakness nausea PUI?: No Time Seen by Provider: 04/23/21 12:48 Source: patient, EMS ( EMS documentation not available at time of chart dictation ), RN notes reviewed, old records reviewed Mode of arrival: Wheelchair Limitations: No Limitations - History of Present Illness Initial comments: The patient is a 50-year-old gentleman. His geomorphologist is Dr. Vera He has a history of renal insufficiency is not currently on hemodialysis. He presents to the ER with a complaint of generalized weakness, nausea and vomiting, every time he eats. This has been going on for about a month. Denies headache, neck pain, chest pain, abdominal pain, shortness of breath, hematemesis and bright red blood per rectum. No Covid symptomatology. He reports his geomorphologist advised initiation of hemodialysis. He is not peritoneal hemodialysis. He is reluctant to initiate hemodialysis, because he is scared to be on. -: Gradual, week(s) Consistency: constant Improves with: rest Worsens with: eating - Related Data Home Medications Medication Instructions Recorded Confirmed Last Taken Aspirin [Lo-Dose Aspirin EC] 81 mg PO DAILY 09/02/17 12/26/20 09/01/17 Insulin Glargine,Hum.rec.anlog 13 units SQ BID 09/02/17 12/26/20 09/01/17 [Lantus] amLODIPine 10 mg PO DAILY 09/02/17 12/26/20 09/01/17 Insulin Aspart (Nf) [NovoLOG 100 0 unit SQ AC 12/26/20 12/26/20 Unknown UNITS/ML VIAL] calcitrioL [Rocaltrol] 1 cap PO DAILY 12/26/20 12/26/20 Unknown Allergies Allergy/AdvReac Type Severity Reaction Status Date / Time No Known Allergies Allergy Unverified 05/15/16 07:36 ED Review of Systems ROS: Stated complaint: GENERAL WEAKNESS/HIGH BS Other details as noted in HPI Constitutional: malaise, weakness, other (Denies loss of taste and smell). denies: fever Eyes: denies: eye discharge Respiratory: denies: cough Cardiovascular: denies: chest pain Gastrointestinal: nausea, vomiting. denies: abdominal pain Genitourinary: denies: dysuria Musculoskeletal: denies: myalgia Neurological: weakness Psychiatric: anxiety ED Past Medical Hx - Past Medical History Previous Medical History?: Yes Hx Hypertension: Yes Hx CVA: Yes Hx Congestive Heart Failure: No Hx Diabetes: Yes Hx Headaches / Migraines: No Hx Seizures: Yes Hx Asthma: No Hx COPD: No Hx Tuberculosis: No (skin test positive chest xray negative) Additional medical history: brain aneurysm - Surgical History Past Surgical History?: Yes Additional Surgical History: brain aneurysm repair - Social History Smoking Status: Never Smoker - Medications Home Medications: Home Medications Medication Instructions Recorded Confirmed Last Taken Type Aspirin [Lo-Dose Aspirin EC] 81 mg PO DAILY 09/02/17 12/26/20 09/01/17 History Insulin Glargine,Hum.rec.anlog 13 units SQ BID 09/02/17 12/26/20 09/01/17 History [Lantus] amLODIPine 10 mg PO DAILY 09/02/17 12/26/20 09/01/17 History Insulin Aspart (Nf) [NovoLOG 100 0 unit SQ AC 12/26/20 12/26/20 Unknown History UNITS/ML VIAL] calcitrioL [Rocaltrol] 1 cap PO DAILY 12/26/20 12/26/20 Unknown History ED Physical Exam - General Limitations: No Limitations General appearance: alert, in no apparent distress - Head Head exam: Present: atraumatic, normocephalic - Eye Eye exam: Present: normal appearance, EOMI. Absent: nystagmus - ENT ENT exam: Present: normal exam, normal orophraynx, mucous membranes moist, normal external ear exam - Neck Neck exam: Present: normal inspection, full ROM. Absent: tenderness, meningismus - Respiratory Respiratory exam: Present: normal lung sounds bilaterally. Absent: respiratory distress, wheezes, rales, rhonchi, stridor, decreased breath sounds - Cardiovascular Cardiovascular Exam: Present: regular rate, normal rhythm, normal heart sounds. Absent: bradycardia, tachycardia, irregular rhythm, systolic murmur, diastolic murmur, rubs, gallop - GI/Abdominal GI/Abdominal exam: Present: soft. Absent: distended, tenderness, guarding, rebound, rigid, pulsatile mass - Rectal Rectal exam: Present: deferred - Extremities Exam Extremities exam: Present: normal inspection, full ROM, other (2+ pulses noted in the bilateral upper and lower extremities. There is no palpable cord. negative Homans sign. Muscular compartments are soft. The pelvis is stable.). Absent: calf tenderness - Back Exam Back exam: Present: normal inspection, full ROM. Absent: tenderness, CVA tenderness (R), CVA tenderness (L), paraspinal tenderness, vertebral tenderness - Neurological Exam Neurological exam: Present: alert, other (No facial droop. Tongue midline. Extraocular movements intact bilaterally. Facial sensation intact to light touch in V1, V2, V3 distribution bilaterally. 5 and a 5 strength in 4 extremities. Sensation intact to light touch in 4 extremities.). Absent: motor sensory deficit - Psychiatric Psychiatric exam: Present: normal affect, normal mood, anxious - Skin Skin exam: Present: warm, dry, intact, normal color. Absent: rash ED Course Vital Signs 04/23/21 04/23/21 04/23/21 12:45 12:54 13:00 Temperature 98.3 F Pulse Rate 84 75 79 Respiratory 18 13 13 Rate Blood Pressure 73/43 [Right] O2 Sat by Pulse 97 Oximetry O2 Sat by Pulse Oximetry [ Digit-Finger] 04/23/21 04/23/21 04/23/21 13:16 13:21 13:30 Temperature Pulse Rate 75 77 Respiratory 18 13 Rate Blood Pressure [Right] O2 Sat by Pulse Oximetry O2 Sat by Pulse 98 Oximetry [ Digit-Finger] 04/23/21 13:55 Temperature Pulse Rate 73 Respiratory Rate Blood Pressure [Right] O2 Sat by Pulse Oximetry O2 Sat by Pulse Oximetry [ Digit-Finger] - Reevaluation(s) Reevaluation #1: 04/23/21 13:02 Differential diagnosis, including the not limited to: Dehydration, azotemia, uremia, metabolic acidosis, electrolyte derangement, dehydration Assessment and plan: 50-year-old gentleman, with known history of chronic renal insufficiency, in 2017, creatinine was 6, is not currently on hemodialysis, who is most likely presenting with decompensated chronic renal insufficiency, and probable symptomatic uremia, and azotemia. He is afebrile with reassuring vital signs with the exception of hypotension, and we suspect a component of volume depletion. Place patient on environmental monitoring technician, obtain EKG, start IV fluids, start antiemetics, and obtain appropriate laboratory studies. We have recommended admission to the medical service once initial diagnostics have resulted. Have discussed this with the patient, who verbalizes understanding. Lung sounds are clear. Saturating well on room air. Does not appear to be fluid overloaded. Discuss with his primary geomorphologist once initial diagnostics have resulted. 04/23/21 14:10 Laboratory studies reviewed and appreciated, demonstrate azotemia, uremia, hyperphosphatemia, hypermagnesemia, metabolic acidosis, and probable hepatitis C. Patient will be admitted to the medical service under the care of Dr. Gilles Lugo. We are awaiting callback from patient's private geomorphologist. Patient himself appears to be comfortable. 04/23/21 14:11 Patient denies chest pain. Elevated troponin is likely a type II troponin leak, likely secondary to presumed end-stage renal disease. 04/23/21 14:15 Discussed patient's history, physical, pertinent laboratory studies with his primary geomorphologist, Dr. Mayda Vera He states he will contact vascular surgery, and arrange for Vas-Cath placement, and placed orders for hemodialysis to start tomorrow. Blood pressure improved. Patient playing on his cell phone. Does not appear to be in any acute distress. Hospital physician, Dr. Lugo to admit patient to the medical service. Defer to inpatient team to further evaluate and manage presumed hepatitis C. - Pulse Oximetry Interpretation Digit-Finger Initial Pulse Oximetry Readin O2 Sat by Pulse Oximetry: 98 Actions Taken: none ED Medical Decision Making - Lab Data Result diagrams: 04/23/21 13:11 04/23/21 13:11 Vital Signs 04/23/21 12:45 Temperature 98.3 F Pulse Rate 84 Respiratory 18 Rate Blood Pressure 73/43 [Right] O2 Sat by Pulse 97 Oximetry Lab Results 04/23/21 04/23/21 04/23/21 Range/Units 12:42 13:11 13:11 WBC 8.7 (4.5-11.0) K/mm3 RBC 3.10 L (3.65-5.03) M/mm3 Hgb 9.1 L (11.8-15.2) gm/dl Hct 27.2 L (35.5-45.6) % MCV 88 (84-94) fl MCH 30 (28-32) pg MCHC 34 (32-34) % RDW 13.4 (13.2-15.2) % Plt Count 253 (140-440) K/mm3 Lymph % (Auto) 23.4 (13.4-35.0) % [place] % (Auto) 9.0 H (0.0-7.3) % Eos % (Auto) 2.4 (0.0-4.3) % Baso % (Auto) 1.4 (0.0-1.8) % Lymph # (Auto) 2.0 (1.2-5.4) K/mm3 [place] # (Auto) 0.8 (0.0-0.8) K/mm3 Eos # (Auto) 0.2 (0.0-0.4) K/mm3 Baso # (Auto) 0.1 (0.0-0.1) K/mm3 Seg Neutrophils % 63.8 (40.0-70.0) % Seg Neutrophils # 5.6 (1.8-7.7) K/mm3 PT 14.2 (12.2-14.9) Sec. INR 1.04 (0.87-1.13) Sodium (137-145) mmol/L Potassium (3.6-5.0) mmol/L Chloride (98-107) mmol/L Carbon Dioxide (22-30) mmol/L Anion Gap mmol/L BUN (9-20) mg/dL Creatinine (0.8-1.3) mg/dL Estimated GFR ml/min BUN/Creatinine Ratio % Glucose (75-100) mg/dL POC Glucose 174 H (70-105) mg/dL Lactic Acid (0.7-2.0) mmol/L Calcium (8.4-10.2) mg/dL Phosphorus (2.5-4.5) mg/dL Magnesium (1.7-2.3) mg/dL Total Bilirubin (0.1-1.2) mg/dL AST (5-40) units/L ALT (7-56) units/L Alkaline Phosphatase (35-129) units/L Total Creatine Kinase (55-170) units/L Troponin T (0.00-0.029) ng/mL Total Protein (6.3-8.2) g/dL Albumin (3.9-5) g/dL Albumin/Globulin Ratio % TSH (0.270-4.200) mlU/mL Hepatitis A IgM Ab (NonReactive) Hep Bs Antigen (Negative) Hep B Core IgM Ab (NonReactive) Hepatitis C Antibody (NonReactive) 04/23/21 04/23/21 04/23/21 Range/Units 13:11 13:11 13:11 WBC (4.5-11.0) K/mm3 RBC (3.65-5.03) M/mm3 Hgb (11.8-15.2) gm/dl Hct (35.5-45.6) % MCV (84-94) fl MCH (28-32) pg MCHC (32-34) % RDW (13.2-15.2) % Plt Count (140-440) K/mm3 Lymph % (Auto) (13.4-35.0) % [place] % (Auto) (0.0-7.3) % Eos % (Auto) (0.0-4.3) % Baso % (Auto) (0.0-1.8) % Lymph # (Auto) (1.2-5.4) K/mm3 [place] # (Auto) (0.0-0.8) K/mm3 Eos # (Auto) (0.0-0.4) K/mm3 Baso # (Auto) (0.0-0.1) K/mm3 Seg Neutrophils % (40.0-70.0) % Seg Neutrophils # (1.8-7.7) K/mm3 PT (12.2-14.9) Sec. INR (0.87-1.13) Sodium 139 (137-145) mmol/L Potassium 4.3 (3.6-5.0) mmol/L Chloride 92.7 L (98-107) mmol/L Carbon Dioxide 29 (22-30) mmol/L Anion Gap 22 mmol/L BUN 112 H (9-20) mg/dL Creatinine 11.7 H (0.8-1.3) mg/dL Estimated GFR 6 ml/min BUN/Creatinine Ratio 10 % Glucose 167 H (75-100) mg/dL POC Glucose (70-105) mg/dL Lactic Acid 1.40 (0.7-2.0) mmol/L Calcium 9.6 (8.4-10.2) mg/dL Phosphorus 7.40 H (2.5-4.5) mg/dL Magnesium 2.50 H (1.7-2.3) mg/dL Total Bilirubin 0.30 (0.1-1.2) mg/dL AST 24 (5-40) units/L ALT 23 (7-56) units/L Alkaline Phosphatase 90 (35-129) units/L Total Creatine Kinase 357 H (55-170) units/L Troponin T 0.210 H* (0.00-0.029) ng/mL Total Protein 7.4 (6.3-8.2) g/dL Albumin 4.1 (3.9-5) g/dL Albumin/Globulin Ratio 1.2 % TSH 1.700 (0.270-4.200) mlU/mL Hepatitis A IgM Ab (NonReactive) Hep Bs Antigen (Negative) Hep B Core IgM Ab (NonReactive) Hepatitis C Antibody (NonReactive) 04/23/21 Range/Units 13:11 WBC (4.5-11.0) K/mm3 RBC (3.65-5.03) M/mm3 Hgb (11.8-15.2) gm/dl Hct (35.5-45.6) % MCV (84-94) fl MCH (28-32) pg MCHC (32-34) % RDW (13.2-15.2) % Plt Count (140-440) K/mm3 Lymph % (Auto) (13.4-35.0) % [place] % (Auto) (0.0-7.3) % Eos % (Auto) (0.0-4.3) % Baso % (Auto) (0.0-1.8) % Lymph # (Auto) (1.2-5.4) K/mm3 [place] # (Auto) (0.0-0.8) K/mm3 Eos # (Auto) (0.0-0.4) K/mm3 Baso # (Auto) (0.0-0.1) K/mm3 Seg Neutrophils % (40.0-70.0) % Seg Neutrophils # (1.8-7.7) K/mm3 PT (12.2-14.9) Sec. INR (0.87-1.13) Sodium (137-145) mmol/L Potassium (3.6-5.0) mmol/L Chloride (98-107) mmol/L Carbon Dioxide (22-30) mmol/L Anion Gap mmol/L BUN (9-20) mg/dL Creatinine (0.8-1.3) mg/dL Estimated GFR ml/min BUN/Creatinine Ratio % Glucose (75-100) mg/dL POC Glucose (70-105) mg/dL Lactic Acid (0.7-2.0) mmol/L Calcium (8.4-10.2) mg/dL Phosphorus (2.5-4.5) mg/dL Magnesium (1.7-2.3) mg/dL Total Bilirubin (0.1-1.2) mg/dL AST (5-40) units/L ALT (7-56) units/L Alkaline Phosphatase (35-129) units/L Total Creatine Kinase (55-170) units/L Troponin T (0.00-0.029) ng/mL Total Protein (6.3-8.2) g/dL Albumin (3.9-5) g/dL Albumin/Globulin Ratio % TSH (0.270-4.200) mlU/mL Hepatitis A IgM Ab Non-reactive (NonReactive) Hep Bs Antigen Non-reactive (Negative) Hep B Core IgM Ab Non-reactive (NonReactive) Hepatitis C Antibody Reactive A (NonReactive) - EKG Data -: EKG Interpreted by Dc EKG shows normal: sinus rhythm Rate: normal - EKG Data 04/23/21 13:02 EKG interpreted at 12: 42 Sinus rhythm, 79 bpm. Normal axis, normal P wave axis, left ventricular hypertrophy, poor R wave progression, QTC 416 ms. This is an abnormal EKG. This is not a STEMI. This appears to be unchanged from prior EKG from 12/26/2020 - Radiology Data Radiology results: pending, report reviewed, image reviewed [facility] [address] [place] [address] XRay Report Signed Patient: TEJAS MEREDITH MR#: [id number] : 1970 Acct:[id number] Age/Sex: 50 / M ADM Date: 04/23/21 Loc: ED Attending Dr: Ordering Physician: ROSALINA PERERA MD Date of Service: 04/23/21 Procedure(s): XR chest 1V ap Accession Number(s): [id number] cc: ROSALINA PERERA MD Fluoro Time In Minutes: CHEST 1 VIEW 04/23/2021 12:52 PM INDICATION / CLINICAL INFORMATION: Weakness. COMPARISON: 12/26/2020 FINDINGS: SUPPORT DEVICES: None. HEART / MEDIASTINUM: No significant abnormality. LUNGS / PLEURA: No significant pulmonary or pleural abnormality. No pneumothorax. ADDITIONAL FINDINGS: No sig nificant additional findings. IMPRESSION: 1. No acute findings. Signer Name: Ángel Godfrey MD Signed: 04/23/2021 1:13 PM Workstation Name: [id number] Transcribed By: TL Dictated By: Ángel Godfrey MD Electronically Authenticated By: Ángel Godfrey MD Signed Date/Time: 04/23/21 1313 Critical care attestation.: If time is entered above; I have spent that time in minutes in the direct care of this critically ill patient, excluding procedure time. ED Disposition Clinical Impression: Azotemia, Uremia, Dehydration, Metabolic acidosis, ESRD needing dialysis, Hepatitis C Disposition: OP ADMIT IP TO THIS HOSP Is pt being admited?: Yes Does the pt Need Aspirin: No Condition: Serious
--- NOTE | 2021-04-23 13:18 | XRay Report ---
CHEST 1 VIEW 04/23/2021 12:52 PM INDICATION / CLINICAL INFORMATION: Weakness. COMPARISON: 12/26/2020 FINDINGS: SUPPORT DEVICES: None. HEART / MEDIASTINUM: No significant abnormality. LUNGS / PLEURA: No significant pulmonary or pleural abnormality. No pneumothorax. ADDITIONAL FINDINGS: No significant additional findings. IMPRESSION: 1. No acute findings. Signer Name: Ángel Godfrey MD Signed: 04/23/2021 1:13 PM Workstation Name: [id number]
[2021-04-23 13:29] LABS: Basophils # (Auto) 0.1 K/mm3 (0.0-0.1); Basophils % (Auto) 1.4 % (0.0-1.8); Eosinophils # (Auto) 0.2 K/mm3 (0.0-0.4); Eosinophils % (Auto) 2.4 % (0.0-4.3); Hematocrit 27.2 % (35.5-45.6); Hemoglobin 9.1 gm/dl (11.8-15.2); Lymphocytes % (Auto) 23.4 % (13.4-35.0); Mean Corpuscular HGB Conc 34 % (32-34); Mean Corpuscular Volume 88 fl (84-94); Monocytes # (Auto) 0.8 K/mm3 (0.0-0.8); Platelet Count 253 K/mm3 (140-440); Red Cell Distribution Width 13.4 % (13.2-15.2)
[2021-04-23 13:55] LABS: Albumin 4.1 g/dL (3.9-5); Calcium 9.6 mg/dL (8.4-10.2); INR 1.04 (0.87-1.13)
[2021-04-23 13:58] LABS: Hepatitis B Surface Antigen Non-Reactive (Negative); Hepatitis C Virus Antibody Reactive (NonReactive)
[2021-04-23 14:29] LABS: Chol/HDL Ratio 2.26 %
--- NOTE | 2021-04-23 15:19 | History and Physical Report ---
History of Present Illness Date of examination: 04/23/21 Date of admission: 04/23/2021 Chief complaint: Generalized weakness arthralgias myalgias History of present illness: Patient 50-year-old male with a history of hypertension and diabetes x15 years presents to ED with a chief complaint of generalized weakness dizziness, nausea and vomiting. Patient states he was diagnosed with renal failure approximately 1 year ago and was told he would probably need hemodialysis. His spinning frame cleaner has told him within the last month multiple times that he needed to go to the ED to be dialyzed. And initiate dialysis. Patient was hesitant to receive hemodialysis until yesterday when he began having profound nausea and vomiting unable to hold food down and associated dizziness as well. Patient states his generalized weakness and malaise got worse over the past 24 hours and decided to come to the ED. Upon presentation to the ED patient was found to be nauseated generalized weakness malaise associated with acute on chronic renal failure. Renal failure requiring hemodialysis. Renal consult was obtained by Dr. Martinez and plan was put in place for patient to receive hemodialysis. Will require vascular consult for Vas-Cath placement. At present patient nausea improved with antiemetics. Denies any chest pain shortness of breath no fever chills no nausea vomiting. No history of cough. No exposure to COVID-19. Patient denies any abdominal pain no abdominal bleeding. Past History Past Medical History: diabetes, hepatitis, hypertension. denies: liver disease, renal failure, seizures Past Surgical History: No surgical history Social history: no significant social history, lives with family, other (Lives with brother) Family history: no significant family history, diabetes, hypertension Medications and Allergies Allergies Allergy/AdvReac Type Severity Reaction Status Date / Time No Known Allergies Allergy Unverified 05/15/16 07:36 Home Medications Medication Instructions Recorded Confirmed Last Taken Type Aspirin [Lo-Dose Aspirin EC] 81 mg PO DAILY 09/02/17 12/26/20 09/01/17 History Insulin Glargine,Hum.rec.anlog 13 units SQ BID 09/02/17 12/26/20 09/01/17 History [Lantus] amLODIPine 10 mg PO DAILY 09/02/17 12/26/20 09/01/17 History Insulin Aspart (Nf) [NovoLOG 100 0 unit SQ AC 12/26/20 12/26/20 Unknown History UNITS/ML VIAL] calcitrioL [Rocaltrol] 1 cap PO DAILY 12/26/20 12/26/20 Unknown History Review of Systems Constitutional: anorexia, fatigue, weakness, malaise, poor appetite, no weight loss, no weight gain, no fever, no chills, no sweats, no night sweats, no lethar gy, no chronic headaches, no daytime sleepiness, no chronic pain Ears, nose, mouth and throat: vertigo, no ear pain, no decreased hearing, no nose pain, no nasal discharge, no dental pain, no dysphagia, no hoarseness, no neck fullness/pressure Cardiovascular: lightheadedness, high blood pressure, no chest pain, no orthopnea, no palpitations, no rapid/irregular heart beat, no edema, no syncope, no shortness of breath, no paroxysmal nocturnal dyspnea, no claudication, no phlebitis Respiratory: no cough with sputum, no wheezing, no pain, no respiratory infections, no other Gastrointestinal: nausea, vomiting, loss of appetite, early satiety, heartburn, no diarrhea, no constipation, no change in bowel habits, no hematemesis, no coffee ground emesis, no melena, no hematochezia, no indigestion, no belching, no jaundice, no early satiety Musculoskeletal: muscle weakness, muscle cramps, no neck stiffness, no neck pain, no shooting arm pain, no arm numbness/tingling, no low back pain, no shooting leg pain, no leg numbness/tingling, no redness of joints, no hot joints, no morning stiffness, no atrophy, no limitation of motion, no fractures, no loss of height Integumentary: no redness Neurological: no transient paralysis, no numbness, no tingling, no migraines, no convulsions, no aphasia, no double vision Psychiatric: no memory loss, no hypersomnia, no anhedonia, no irritability Endocrine: no cold intolerance, no polyphagia, no excessive thirst, no polydipsia, no polyuria, no deepening of the voice, no palpatations, no low blood sugars, no recent glucocorticoid use Hematologic/Lymphatic: no easy bleeding, no thrombophilia Allergic/Immunologic: no urticaria, no other Exam - Constitutional Vitals: Temp Pulse Resp BP Pulse Ox 98.3 F 70 12 112/75 100 04/23/21 12:45 04/23/21 14:16 04/23/21 14:16 04/23/21 14:16 04/23/21 14:24 General appearance: Present: no acute distress, well-nourished - EENT Eyes: Present: PERRL ENT: hearing intact, clear oral mucosa - Neck Neck: Present: supple, normal ROM - Respiratory Respiratory effort: normal Respiratory: bilateral: CTA - Cardiovascular Heart Sounds: Present: S1 & S2. Absent: rub, click - Extremities Extremities: pulses symmetrical, No edema Peripheral Pulses: within normal limits - Abdominal General gastrointestinal: Present: soft, non-tender, non-distended, normal bowel sounds Male genitourinary: Present: normal - Integumentary Integumentary: Present: clear, warm, dry - Musculoskeletal Musculoskeletal: gait normal, strength equal bilaterally - Psychiatric Psychiatric: appropriate mood/affect, intact judgment & insight - Neurologic Neurologic: CNII-XII intact, moves all extremities HEART Score - HEART Score Troponin: Troponin T 0.210 ng/mL (0.00-0.029) H* 04/23/21 13:11 Results - Labs CBC & Chem 7: 04/23/21 13:11 04/23/21 13:11 Labs: Laboratory Last Values WBC 8.7 K/mm3 (4.5-11.0) 04/23/21 13:11 RBC 3.10 M/mm3 (3.65-5.03) L 04/23/21 13:11 Hgb 9.1 gm/dl (11.8-15.2) L 04/23/21 13:11 Hct 27.2 % (35.5-45.6) L 04/23/21 13:11 MCV 88 fl (84-94) 04/23/21 13:11 MCH 30 pg (28-32) 04/23/21 13:11 MCHC 34 % (32-34) 04/23/21 13:11 RDW 13.4 % (13.2-15.2) 04/23/21 13:11 Plt Count 253 K/mm3 (140-440) 04/23/21 13:11 Lymph % (Auto) 23.4 % (13.4-35.0) 04/23/21 13:11 Adams % (Auto) 9.0 % (0.0-7.3) H 04/23/21 13:11 Eos % (Auto) 2.4 % (0.0-4.3) 04/23/21 13:11 Baso % (Auto) 1.4 % (0.0-1.8) 04/23/21 13:11 Lymph # (Auto) 2.0 K/mm3 (1.2-5.4) 04/23/21 13:11 Adams # (Auto) 0.8 K/mm3 (0.0-0.8) 04/23/21 13:11 Eos # (Auto) 0.2 K/mm3 (0.0-0.4) 04/23/21 13:11 Baso # (Auto) 0.1 K/mm3 (0.0-0.1) 04/23/21 13:11 Seg Neutrophils % 63.8 % (40.0-70.0) 04/23/21 13:11 Seg Neutrophils # 5.6 K/mm3 (1.8-7.7) 04/23/21 13:11 PT 14.2 Sec. (12.2-14.9) 04/23/21 13:11 INR 1.04 (0.87-1.13) 04/23/21 13:11 Sodium 139 mmol/L (137-145) 04/23/21 13:11 Potassium 4.3 mmol/L (3.6-5.0) 04/23/21 13:11 Chloride 92.7 mmol/L (98-107) L 04/23/21 13:11 Carbon Dioxide 29 mmol/L (22-30) 04/23/21 13:11 Anion Gap 22 mmol/L 04/23/21 13:11 BUN 112 mg/dL (9-20) H 04/23/21 13:11 Creatinine 11.7 mg/dL (0.8-1.3) H 04/23/21 13:11 Estimated GFR 6 ml/min 04/23/21 13:11 BUN/Creatinine Ratio 10 % 04/23/21 13:11 Glucose 167 mg/dL (75-100) H 04/23/21 13:11 POC Glucose 174 mg/dL (70-105) H 04/23/21 12:42 Lactic Acid 1.40 mmol/L (0.7-2.0) 04/23/21 13:11 Calcium 9.6 mg/dL (8.4-10.2) 04/23/21 13:11 Phosphorus 7.40 mg/dL (2.5-4.5) H 04/23/21 13:11 Magnesium 2.50 mg/dL (1.7-2.3) H 04/23/21 13:11 Total Bilirubin 0.30 mg/dL (0.1-1.2) 04/23/21 13:11 AST 24 units/L (5-40) 04/23/21 13:11 ALT 23 units/L (7-56) 04/23/21 13:11 Alkaline Phosphatase 90 units/L (35-129) 04/23/21 13:11 Total Creatine Kinase 357 units/L (55-170) H 04/23/21 13:11 Troponin T 0.210 ng/mL (0.00-0.029) H* 04/23/21 13:11 Total Protein 7.4 g/dL (6.3-8.2) 04/23/21 13:11 Albumin 4.1 g/dL (3.9-5) 04/23/21 13:11 Albumin/Globulin Ratio 1.2 % 04/23/21 13:11 Triglycerides 73 mg/dL (2-149) 04/23/21 13:11 Cholesterol 93 mg/dL (50-199) 04/23/21 13:11 LDL Cholesterol Direct 48 mg/dL (50-130) L 04/23/21 13:11 HDL Cholesterol 41 mg/dL (40-59) 04/23/21 13:11 Cholesterol/HDL Ratio 2.26 % 04/23/21 13:11 TSH 1.700 mlU/mL (0.270-4.200) 04/23/21 13:11 Hepatitis A IgM Ab Non-reactive (NonReactive) 04/23/21 13:11 Hep Bs Antigen Non-reactive (Negative) 04/23/21 13:11 Hep B Core IgM Ab Non-reactive (NonReactive) 04/23/21 13:11 Hepatitis C Antibody Reactive (NonReactive) A 04/23/21 13:11 - Imaging and Cardiology Chest x-ray: report reviewed, image reviewed Assessment and Plan Advance Directives: Yes VTE prophylaxis?: Chemical Plan of care discussed with patient/family: Yes - Patient Problems (1) ESRD needing dialysis Current Visit: Yes Status: Acute Plan to address problem: Patient end-stage renal disease with BUN of 112 and creatinine 11.1. Patient will require hemodialysis. Will place Vas-Cath with vascular consult. Patient spinning frame cleaner is aware and evaluated patient for hemodialysis. At present we will monitor electrolytes and control nausea and vomiting until patient can receive hemodialysis. Supportive care IV fluids were needed Zofran Adequate pain control. DVT prophylaxis (2) Hepatitis C Current Visit: Yes Status: Acute Plan to address problem: Patient noted to have hepatitis C has been obtained in work-up of renal failure and hemodialysis. Suggest treatment as outpatient follow-up GI upon discharge. (3) Hypertension Current Visit: No Status: Acute Qualifiers: Hypertension type: essential hypertension Qualified Code(s): I10 - Essential (primary) hypertension Plan to address problem: We will hold antihypertensives. At this time patient's blood pressure is hypotensive. Has been corrected with IV replacement. Currently hemodynamically stable. Will restart blood pressure medications when patient's is able to tolerate. Was on amlodipine. (4) Insulin dependent diabetes mellitus Current Visit: No Status: Acute Plan to address problem: Most likely noncompliance. Patient states he was not sure if he is on 13 units twice daily or 32 units twice daily. Will initiate 13 units twice daily and titrate up accordingly. Place patient on sliding scale with Accu-Cheks before every meal and nightly. Patient will be on a renal diet and low concentrated sweet diet. (5) DVT prophylaxis Current Visit: Yes Status: Acute
[2021-04-23] MEDS ORDERED: DEXTROSE 50% IN WATER (25GM) 50 ML SYRINGE IV PRN (15:26)
[2021-04-23] MEDS ORDERED: ONDANSETRON 4 MG/2 ML INJ IV PRN (15:26)
[2021-04-23] MEDS ORDERED: ACETAMINOPHEN 325 MG TAB PO PRN (15:26)
[2021-04-23] MEDS ORDERED: MORPHINE 2 MG/1 ML INJ IV PRN (15:26)
[2021-04-23] MEDS ORDERED: ENOXAPARIN 100 MG/1 ML INJ SUB-Q SCH ×2 (16:00)
[2021-04-23] MEDS ORDERED: SODIUM CHLORIDE 0.9% 1000 ML 1,000 ML IV SCH (21:45)
[2021-04-23] MEDS: ENOXAPARIN 80 MG/0.8 ML INJ SUB-Q SCH (22:50)
[2021-04-23] MEDS: DOCUSATE SODIUM 100 MG CAP PO SCH (22:50)
[2021-04-24] MEDS: SEVELAMER CARBONATE 800 MG TAB PO SCH ×3 (07:30→16:39)
[2021-04-24 07:34] LABS: Hematocrit 26.9 % (35.5-45.6)
[2021-04-24 07:58] LABS: Albumin 3.7 g/dL (3.9-5); Calcium 9.8 mg/dL (8.4-10.2)
--- NOTE | 2021-04-24 08:34 | Consultation ---
History of Present Illness - Reason for Consult Consult date: 04/24/21 end stage renal disease - History of Present Illness The patient is a 50-year-old male well known to our service with history significant for Type 2 diabetes, Hypertension, CVA, HLD, Anemia, Hepatitis C, Secondary hyperparathyroidism, Hyperkalemia, CKD stage 5 and medical non- compliance who presented to [facility] ED 04/23 with complaint of generalized weakness, dizziness, nausea and vomiting, every time he eats. Per patient he felt very dizzy on attempted to stand/walk. He reports persistent N & V for the past month. Denies fever, chills, headache, chest pain, syncope, abdominal pain, shortness of breath, hematemesis and bright red blood per rectum. No Covid symptomatology. Initial BP was 73/43. Labs significant Creat 11.5, BUN 110 and Hb 9. Nephrology was consulted for further evaluation. Past History Past Medical History: anemia, diabetes, hepatitis, hypertension, renal failure. denies: liver disease Past Surgical History: No surgical history Social history: no significant social history, lives with family, other (Lives with brother) Family history: no significant family history, diabetes, hypertension Medications and Allergies Allergies Allergy/AdvReac Type Severity Reaction Status Date / Time No Known Allergies Allergy Unverified 05/15/16 07:36 Home Medications Medication Instructions Recorded Confirmed Last Taken Type Aspirin [Lo-Dose Aspirin EC] 81 mg PO DAILY 09/02/17 04/24/21 09/01/17 History Insulin Glargine,Hum.rec.anlog 13 units SQ BID 09/02/17 04/24/21 09/01/17 History [Lantus] amLODIPine 10 mg PO DAILY 09/02/17 04/24/21 09/01/17 History Insulin Aspart (Nf) [NovoLOG 100 0 unit SQ AC 12/26/20 04/24/21 Unknown History UNITS/ML VIAL] calcitrioL [Rocaltrol] 1 cap PO DAILY 12/26/20 04/24/21 Unknown History Active Meds: Active Medications Acetaminophen (Acetaminophen 325 Mg Tab) 650 mg PO Q4H PRN PRN Reason: Pain MILD(1-3)/Fever >100.5/BROWN Dextrose (Dextrose 50% In Water (25gm) 50 Ml Syringe) 50 ml IV Q30MIN PRN; Protocol PRN Reason: Hypoglycemia Docusate Sodium (Docusate Sodium 100 Mg Cap) 100 mg PO BID [facility] Last Admin: 04/23/21 22:50 Dose: 100 mg Documented by: Enoxaparin Sodium (Enoxaparin 80 Mg/0.8 Ml Inj) 80 mg 1 mg/kg (180 mg) SUB-Q Q24H [facility]; Protocol Last Admin: 04/23/21 22:50 Dose: 80 mg Documented by: Sodium Chloride (Nacl 0.9% 1000 Ml) 1,000 mls @ 75 mls/hr IV DIRECT [facility] Last Admin: 04/23/21 23:20 Dose: 75 mls/hr Documented by: Morphine Sulfate (Morphine 2 Mg/1 Ml Inj) 2 mg IV Q4H PRN PRN Reason: Pain, Moderate (4-6) Ondansetron HCl (Ondansetron 4 Mg/2 Ml Inj) 4 mg IV Q8H PRN PRN Reason: Nausea And Vomiting Sevelamer Carbonate (Sevelamer Carbonate 800 Mg Tab) 1,600 mg PO AC [facility] Sodium Chloride (Sodium Chloride 0.9% 10 Ml Flush Syringe) 10 ml IV BID [facility] Last Admin: 04/23/21 22:51 Dose: 10 ml Documented by: Sodium Chloride (Sodium Chloride 0.9% 10 Ml Flush Syringe) 10 ml IV PRN PRN PRN Reason: LINE FLUSH Review of Systems Constitutional: weakness, no weight loss, no weight gain, no fever, no chills, no anorexia, no fatigue, no poor appetite Cardiovascular: high blood pressure, no chest pain, no orthopnea, no leg edema Respiratory: no cough, no hemoptysis, no shortness of breath, no dyspnea on exertion Gastrointestinal: nausea, vomiting, no abdominal pain, no diarrhea, no melena Genitourinary Male: no dysuria, no hematuria Integumentary: no rash Neurological: no convulsions, no aphasia, no change in speech, no change in mentation, no confusion Exam - Vital Signs Vital signs: Vital Signs Temp Pulse Resp BP Pulse Ox 98.3 F 84 18 73/43 97 04/23/21 12:45 04/23/21 12:45 04/23/21 12:45 04/23/21 12:45 04/23/21 12:45 Results - Lab Results 04/24/21 07:16 04/24/21 07:16 Most recent lab results Calcium 9.8 mg/dL (8.4-10.2) 04/24/21 07:16 Phosphorus 7.40 mg/dL (2.5-4.5) H 04/23/21 13:11 Magnesium 2.50 mg/dL (1.7-2.3) H 04/23/21 13:11 Assessment and Plan 1. ESRD: CKD has progressed to ESRD. Patient presented with uremic symptoms. Monitor renal function. Reanl prognosis is poor. Avoid nephrotoxic agents. Meds dosage based on GFR. Patient is agreeakle to start on hemodialysis. Explained the indications, benefits, risks and alternatives involved in hemodialysis. He voiced understanding and gave verbal consent. Vascular consulted for Tunnel hemodialysis catheter placement. Hemodialysis today, orders placed. 2. FEN: Monitor lytes and volume status. 3. N & V: 2/2 uremia. HD today. 4. DM: Monitor blood sugar. 5. Hypotension: Initial low BP, improved now. Monitor. 6. Anemia: Likely 2/2 CKD / ESRD. Epogen. Compliance encouraged. Need outpatient HD chair. Subjective: Patient was seen and examined at the bedside. Examination: General appearance: well-developed, appears stated age, no distress HEENT: ATNC, Pupils equal Neck: Trachea midline Respiratory: ctab Cardiology: regular, S1S2, no murmur Gastrointestinal: normoactive bowel sounds, no tenderness, not distended Integumentary: warm and dry, no obvious rash Neurologic: alert, conversing, able to move extremities Ext: no edema noted
[2021-04-24] MEDS ORDERED: SODIUM CHLORIDE 0.9% 100 ML IV PRN (09:32)
[2021-04-24] MEDS: DOCUSATE SODIUM 100 MG CAP PO SCH ×2 (10:00→22:18)
--- NOTE | 2021-04-24 11:15 | Progress Note ---
Assessment and Plan Assessment and plan: Patient 50-year-old male with a history of hypertension, hepatitis and diabetes x15 years presents to ED with a chief complaint of generalized weakness dizziness, nausea and vomiting. Patient states he was diagnosed with renal failure approximately 1 year ago and was told he would probably need hemodial ysis. His book packer has told him within the last month multiple times that he needed to go to the ED to be dialyzed. And initiate dialysis. Patient was hesitant to receive hemodialysis until yesterday when he began having profound nausea and vomiting unable to hold food down and associated dizziness as well. Patient states his generalized weakness and malaise got worse over the past 24 hours and decided to come to the ED. Upon presentation to the ED patient was found to be nauseated generalized weakness malaise associated with acute on chronic renal failure. Renal failure requiring hemodialysis. Renal consult was obtained by Dr. Martinez and plan was put in place for patient to receive hemodialysis. Will require vascular consult for Vas-Cath placement. At present patient nausea improved with antiemetics. Denies any chest pain shortness of breath no fever chills no nausea vomiting. No history of cough. No exposure to COVID-19. Patient denies any abdominal pain no abdominal bleeding. 04/24: Extensive discussion with the patient today vascular has been consulted for placement of dialysis access. Patient is on full dose anticoagulation awaiting cardiology evaluation which have consulted. If agreed that this is type II and does not need full dose anticoagulation he can be discontinued as patient also does not endorse any chest pain at this time. Will reevaluate let hargy following dialysis and if need be will consult PT OT for further evaluation. Home medication reconciled which will help with blood sugar management with the addition of Lantus (1) ESRD needing dialysis Current Visit: Yes Status: Acute Plan to address problem: Patient end-stage renal disease with BUN of 112 and creatinine 11.1. Patient will require hemodialysis. Will place Vas-Cath with vascular consult. Patient book packer is aware and evaluated patient for hemodialysis. At present we pj l monitor electrolytes and control nausea and vomiting until patient can receive hemodialysis. Supportive care IV fluids were needed Zofran Adequate pain control. DVT prophylaxis (2) Hepatitis C Current Visit: Yes Status: Acute Plan to address problem: Patient noted to have hepatitis C has been obtained in work-up of renal failure and hemodialysis. Suggest treatment as outpatient follow-up GI upon discharge. (3) Hypertension Current Visit: No Status: Acute Qualifiers: Hypertension type: essential hypertension Qualified Code(s): I10 - Essential (primary) hypertension Plan to address problem: We will hold antihypertensives. At this time patient's blood pressure is hypotensive. Has been corrected with IV replacement. Currently hemodynamically stable. Will restart blood pressure medications when patient's is able to tolerate. Was on amlodipine. (4) Insulin dependent diabetes mellitus Current Visit: No Status: Acute Plan to address problem: Most likely noncompliance. Patient states he was not sure if he is on 13 units twice daily or 32 units twice daily. Will initiate 13 units twice daily and titrate up accordingly. Place patient on sliding scale with Accu-Cheks before every meal and nightly. Patient will be on a renal diet and low concentrated sweet diet. (5) Non-ST elevated [place]. Type II secondary to acute on chronic renal failure. (6) anemia of chronic disease (7) DVT prophylaxis Current Visit: Yes Status: Acute History Interval history: Patient seen and examined this morning admitted for initiation of hemodialysis following presentation with nausea vomiting. Hospitalist Physical - Physical exam Narrative exam: VITAL SIGNS: Reviewed. GENERAL: The patient appears normally developed, Vital signs as documented. HEAD: No signs of head trauma. EYES: Pupils are equal. Extraocular motions intact. EARS: Hearing grossly intact. MOUTH: Missing dentition oropharynx is normal. NECK: No adenopathy, no JVD. CHEST: Chest with clear breath sounds bilaterally. No wheezes, rales, or rhonchi. CARDIAC: Regular rate and rhythm. S1 and S2, without murmurs, gallops, or rubs. VASCULAR: No Edema. Peripheral pulses normal and equal in all extremities. ABDOMEN: Soft, non tender and non distended. No rebound or guarding, and no masses palpated. Bowel Sounds normal. MUSCULOSKELETAL: Good range of motion of all major joints. Extremities without clubbing, cyanosis or edema. NEUROLOGIC EXAM: Alert and oriented x 3 No focal sensory or strength deficits. Speech normal. Follows commands. PSYCHIATRIC: Mood normal. SKIN: detail exam as documented in skin assessment - Constitutional Vitals: Temp Pulse Resp BP Pulse Ox 98.0 F 75 18 132/83 99 04/24/21 05:18 04/24/21 05:18 04/24/21 05:18 04/24/21 05:18 04/24/21 05:18 General appearance: Present: no acute distress, well-nourished HEART Score - HEART Score Troponin: Troponin T 0.210 ng/mL (0.00-0.029) H* 04/23/21 13:11 Results - Labs CBC & Chem 7: 04/24/21 07:16 04/24/21 07:16 Labs: Laboratory Last Values WBC 8.7 K/mm3 (4.5-11.0) 04/23/21 13:11 RBC 3.10 M/mm3 (3.65-5.03) L 04/23/21 13:11 Hgb 9.0 gm/dl (11.8-15.2) L 04/24/21 07:16 Hct 26.9 % (35.5-45.6) L 04/24/21 07:16 MCV 88 fl (84-94) 04/23/21 13:11 MCH 30 pg (28-32) 04/23/21 13:11 MCHC 34 % (32-34) 04/23/21 13:11 RDW 13.4 % (13.2-15.2) 04/23/21 13:11 Plt Count 253 K/mm3 (140-440) 04/23/21 13:11 Lymph % (Auto) 23.4 % (13.4-35.0) 04/23/21 13:11 [place] % (Auto) 9.0 % (0.0-7.3) H 04/23/21 13:11 Eos % (Auto) 2.4 % (0.0-4.3) 04/23/21 13:11 Baso % (Auto) 1.4 % (0.0-1.8) 04/23/21 13:11 Lymph # (Auto) 2.0 K/mm3 (1.2-5.4) 04/23/21 13:11 [place] # (Auto) 0.8 K/mm3 (0.0-0.8) 04/23/21 13:11 Eos # (Auto) 0.2 K/mm3 (0.0-0.4) 04/23/21 13:11 Baso # (Auto) 0.1 K/mm3 (0.0-0.1) 04/23/21 13:11 Seg Neutrophils % 63.8 % (40.0-70.0) 04/23/21 13:11 Seg Neutrophils # 5.6 K/mm3 (1.8-7.7) 04/23/21 13:11 PT 14.2 Sec. (12.2-14.9) 04/23/21 13:11 INR 1.04 (0.87-1.13) 04/23/21 13:11 Sodium 140 mmol/L (137-145) 04/24/21 07:16 Potassium 4.3 mmol/L (3.6-5.0) 04/24/21 07:16 Chloride 94.8 mmol/L (98-107) L 04/24/21 07:16 Carbon Dioxide 31 mmol/L (22-30) H 04/24/21 07:16 Anion Gap 19 mmol/L 04/24/21 07:16 BUN 110 mg/dL (9-20) H 04/24/21 07:16 Creatinine 11.5 mg/dL (0.8-1.3) H 04/24/21 07:16 Estimated GFR 6 ml/min 04/24/21 07:16 BUN/Creatinine Ratio 10 % 04/24/21 07:16 Glucose 283 mg/dL (75-100) H 04/24/21 07:16 POC Glucose 249 mg/dL (70-105) H 04/24/21 08:08 Lactic Acid 1.40 mmol/L (0.7-2.0) 04/23/21 13:11 Calcium 9.8 mg/dL (8.4-10.2) 04/24/21 07:16 Phosphorus 7.40 mg/dL (2.5-4.5) H 04/23/21 13:11 Magnesium 2.50 mg/dL (1.7-2.3) H 04/23/21 13:11 Total Bilirubin 0.20 mg/dL (0.1-1.2) 04/24/21 07:16 AST 21 units/L (5-40) 04/24/21 07:16 ALT 22 units/L (7-56) 04/24/21 07:16 Alkaline Phosphatase 90 units/L (35-129) 04/24/21 07:16 Total Creatine Kinase 357 units/L (55-170) H 04/23/21 13:11 Troponin T 0.210 ng/mL (0.00-0.029) H* 04/23/21 13:11 Total Protein 6.9 g/dL (6.3-8.2) 04/24/21 07:16 Albumin 3.7 g/dL (3.9-5) L 04/24/21 07:16 Albumin/Globulin Ratio 1.2 % 04/24/21 07:16 Triglycerides 73 mg/dL (2-149) 04/23/21 13:11 Cholesterol 93 mg/dL (50-199) 04/23/21 13:11 LDL Cholesterol Direct 48 mg/dL (50-130) L 04/23/21 13:11 HDL Cholesterol 41 mg/dL (40-59) 04/23/21 13:11 Cholesterol/HDL Ratio 2.26 % 04/23/21 13:11 TSH 1.700 mlU/mL (0.270-4.200) 04/23/21 13:11 Hepatitis A IgM Ab Non-reactive (NonReactive) 04/23/21 13:11 Hep Bs Antigen Non-reactive (Negative) 04/23/21 13:11 Hep B Core IgM Ab Non-reactive (NonReactive) 04/23/21 13:11 Hepatitis C Antibody Reactive (NonReactive) A 04/23/21 13:11 Javed/IV: Voiding Method Toilet Active Medications - Current Medications Current Medications: Generic Name Dose Route Start Last Admin Trade Name Freq PRN Reason Stop Dose Admin Acetaminophen 650 mg 04/23/21 15:26 Acetaminophen 325 Mg Tab PO Q4H PRN Pain MILD(1-3)/Fever >100.5/BROWN Dextrose 50 ml 04/23/21 15:26 Dextrose 50% In Water (25gm) 50 Ml Syringe IV Q30MIN PRN Hypoglycemia Protocol Docusate Sodium 100 mg 04/23/21 22:00 04/23/21 22:50 Docusate Sodium 100 Mg Cap PO 100 mg BID LYN Administration Enoxaparin Sodium 80 mg 04/23/21 16:00 04/23/21 22:50 Enoxaparin 80 Mg/0.8 Ml Inj 1 mg/kg (180 mg) 80 mg SUB-Q Administration Q24H LYN Protocol Sodium Chloride 1,000 mls @ 75 mls/hr 04/23/21 21:45 04/23/21 23:20 Nacl 0.9% 1000 Ml IV 75 mls/hr DIRECT LYN Administration Sodium Chloride 100 mls @ 999 mls/hr 04/24/21 09:32 Nacl 0.9% IV DAMON PRN Hypotension Morphine Sulfate 2 mg 04/23/21 15:26 Morphine 2 Mg/1 Ml Inj IV Q4H PRN Pain, Moderate (4-6) Ondansetron HCl 4 mg 04/23/21 15:26 Ondansetron 4 Mg/2 Ml Inj IV Q8H PRN Nausea And Vomiting Sevelamer Carbonate 1,600 mg 04/24/21 07:30 Sevelamer Carbonate 800 Mg Tab PO AC LYN Sodium Chloride 10 ml 04/23/21 22:00 04/23/21 22:51 Sodium Chloride 0.9% 10 Ml Flush Syringe IV 10 ml BID LYN Administration Sodium Chloride 10 ml 04/23/21 16:26 Sodium Chloride 0.9% 10 Ml Flush Syringe IV PRN PRN LINE FLUSH
[2021-04-24] MEDS: INSULIN LISPRO 100 UNIT/ML SUB-Q SCH ×4 (11:30→22:24)
[2021-04-24] MEDS: amLODIPine 10 MG TAB PO SCH (12:00)
[2021-04-24] MEDS: ASPIRIN EC 81 MG TAB PO SCH (12:00)
[2021-04-24] MEDS: INSULIN GLARGINE 100 UNITS/ML SUB-Q SCH ×2 (12:00→22:19)
[2021-04-24] MEDS ORDERED: SODIUM CHLORIDE 0.9% 250ML 250 ML ONE (13:32)
[2021-04-24] MEDS ORDERED: ceFAZolin/Water 2 GM/20 ML 2 GM/20 ML SYRINGE IV ONE (13:32)
[2021-04-24] MEDS: HEPARIN/NS 5000 UNIT/500ML 500 ML IR ONE ×2 (15:09→15:13)
[2021-04-24] MEDS: HEPARIN 10,000 UNITS/10 ML VIAL ONE ×4 (15:11→15:30)
[2021-04-24] MEDS: fentaNYL 100 MCG/2 ML INJ ONE ×4 (15:11→15:41)
[2021-04-24] MEDS: MIDAZOLAM 2 MG/2 ML INJ ONE ×3 (15:11→15:29)
[2021-04-24] MEDS: LIDOCAINE 1%/EPINEPHRINE 1:100,000 VIAL (20 ML) INFILTRATI ONE ×4 (15:12→15:42)
[2021-04-24] MEDS ORDERED: fentaNYL 100 MCG/2 ML INJ ONE (15:38)
[2021-04-24] MEDS ORDERED: MIDAZOLAM 2 MG/2 ML INJ ONE (15:38)
[2021-04-24] MEDS ORDERED: diphenhydrAMINE 50 MG/ML VIAL ONE (15:38)
--- NOTE | 2021-04-24 16:34 | Operative Report ---
Operative Report Operative Report: EXAM: 1. Ultrasound-guided puncture of the right internal jugular vein 2. Fluoroscopic-guided placement of a right internal jugular tunneled cuffed hemodialysis catheter. DATE: 04/24/2021 INDICATION: End-stage renal disease requiring hemodialysis access MEDICATIONS: Please see nursing report for full details. DEVICES: 23 cm tip to cuff 15 Fr dual lumen hemodialysis catheter DISABILITY SPECIALIST: JIA NICE MD CONTRAST: None PROCEDURE: The risks, benefits, and alternatives were discussed and informed consent was obtained. The patient was transported to the angiography suite in satisfactory/stable condition and was transported onto the angiography table. The patient's right internal jugular vein was assessed with ultrasound and determined to be patent prior to procedure. The patient was prepped and draped in a sterile fashion. The puncture site was anesthetized. Under sonographic guidance, the right internal jugular vein was punctured with a 21-gauge micropuncture needle and a 0.018 inch wire was advanced into the inferior vena cava. The micropuncture needle was exchanged for a transitional dilator and the wire was retracted into the right atrium to waylon intravascular distance. The wire and inner dilator were removed. 0.035 inch wire was advanced through the transitional dilator into the inferior vena cava. A suitable exit site was identified on the patient's chest inferior and lateral to the venotomy. The site was anesthetized with local anesthetic and the track was anesthetized. Dermatotomy was made. The PermCath was attached to the tunneling device and tunneled between the dermatotomy to the venotomy. Over the 0.035 inch wire, serial dilatation was performed with ultimate placement of a peel-away sheath. The catheter was advanced through the peel- away sheath after the wire was removed and positioned centrally under fluoroscopic guidance. The peel-away sheath was removed. 4-0 Vicryl suture was used to close the venotomy and Dermabond was then applied. 2-0 Ethilon suture was used to secure the catheter at the dermatotomy. The catheter was charged with heparin 1000 units/mL of space. Sterile dressing and Biopatch applied. The patient was transferred from the angiography suite back to the floor in stable condition. FINDINGS: 1. Excellent flow was obtained through the dialysis catheter with 20 mL syringes. 2. The catheter tip is in the right atrium. IMPRESSION: 1. Successful ultrasound and fluoroscopically guided placement of a right internal jugular tunneled cuffed hemodialysis catheter.
--- NOTE | 2021-04-24 16:34 | Consultation ---
History of Present Illness - Reason for Consult Consult date: 04/24/21 End-stage renal disease Requesting physician: JULIET GONZALEZ - History of Present Illness 50-year-old male with history significant for Type 2 diabetes, Hypertension, CVA, HLD, Anemia, Hepatitis C, Secondary hyperparathyroidism, Hyperkalemia, CKD stage 5 and medical non-compliance who presented to [facility] ED 04/23 with complaint of generalized weakness, dizziness, nausea and vomiting, every time he eats. Per patient he felt very dizzy on attempted to stand/walk. He reports persistent N & V for the past month. Denies fever, chills, headache, chest pain, syncope, abdominal pain, shortness of breath, hematemesis and bright red blood per rectum. No Covid symptomatology. Initial BP was 73/43. Labs significant Creat 11.5, BUN 110 and Hb 9. Vascular consulted for dialysis access. Patient is left-handed. Discussed catheter and dialysis access options through hemodialysis. Past History Past Medical History: anemia, diabetes, hepatitis, hypertension, renal failure. denies: liver disease Past Surgical History: No surgical history Social history: no significant social history, lives with family, other (Lives with brother) Family history: no significant family history, diabetes, hypertension Medications and Allergies Allergies Allergy/AdvReac Type Severity Reaction Status Date / Time No Known Allergies Allergy Unverified 05/15/16 07:36 Home Medications Medication Instructions Recorded Confirmed Last Taken Type Aspirin [Lo-Dose Aspirin EC] 81 mg PO DAILY 09/02/17 04/24/21 09/01/17 History Insulin Glargine,Hum.rec.anlog 13 units SQ BID 09/02/17 04/24/21 09/01/17 History [Lantus] amLODIPine 10 mg PO DAILY 09/02/17 04/24/21 09/01/17 History Insulin Aspart (Nf) [NovoLOG 100 0 unit SQ AC 12/26/20 04/24/21 Unknown History UNITS/ML VIAL] calcitrioL [Rocaltrol] 1 cap PO DAILY 12/26/20 04/24/21 Unknown History Active Meds: Active Medications Acetaminophen (Acetaminophen 325 Mg Tab) 650 mg PO Q4H PRN PRN Reason: Pain MILD(1-3)/Fever >100.5/BROWN Amlodipine Besylate (Amlodipine 10 Mg Tab) 10 mg PO DAILY LYN Last Admin: 04/24/21 12:00 Dose: Not Given Documented by: Aspirin (Aspirin Ec 81 Mg Tab) 81 mg PO DAILY [facility] Last Admin: 04/24/21 12:00 Dose: Not Given Documented by: Calcitriol (Calcitriol 0.5 Mcg Cap) 0.5 mcg PO DAILY [facility] Dextrose (Dextrose 50% In Water (25gm) 50 Ml Syringe) 50 ml IV Q30MIN PRN; Protocol PRN Reason: Hypoglycemia Docusate Sodium (Docusate Sodium 100 Mg Cap) 100 mg PO BID [facility] Last Admin: 04/24/21 10:00 Dose: Not Given Documented by: Enoxaparin Sodium (Enoxaparin 80 Mg/0.8 Ml Inj) 80 mg 1 mg/kg (180 mg) SUB-Q Q24H [facility]; Protocol Last Admin: 04/23/21 22:50 Dose: 80 mg Documented by: Sodium Chloride (Nacl 0.9% 1000 Ml) 1,000 mls @ 75 mls/hr IV DIRECT [facility] Last Admin: 04/23/21 23:20 Dose: 75 mls/hr Documented by: Sodium Chloride (Nacl 0.9%) 100 mls @ 999 mls/hr IV DAMON PRN PRN Reason: Hypotension Insulin Glargine (Insulin Glargine 100 Units/Ml) 13 units SUB-Q BID [facility] Last Admin: 04/24/21 12:00 Dose: Not Given Documented by: Insulin Human Lispro (Insulin Lispro 100 Unit/Ml) 0 unit SUB-Q ACHS [facility]; Protocol Last Admin: 04/24/21 11:30 Dose: Not Given Documented by: Morphine Sulfate (Morphine 2 Mg/1 Ml Inj) 2 mg IV Q4H PRN PRN Reason: Pain, Moderate (4-6) Ondansetron HCl (Ondansetron 4 Mg/2 Ml Inj) 4 mg IV Q8H PRN PRN Reason: Nausea And Vomiting Sevelamer Carbonate (Sevelamer Carbonate 800 Mg Tab) 1,600 mg PO AC [facility] Last Admin: 04/24/21 11:30 Dose: Not Given Documented by: Sodium Chloride (Sodium Chloride 0.9% 10 Ml Flush Syringe) 10 ml IV BID [facility] Last Admin: 04/24/21 14:46 Dose: 10 ml Documented by: Sodium Chloride (Sodium Chloride 0.9% 10 Ml Flush Syringe) 10 ml IV PRN PRN PRN Reason: LINE FLUSH Review of Systems All systems: negative (see HPI) Exam - Constitutional Vitals: Temp Pulse Resp BP Pulse Ox 98.4 F 78 20 133/82 100 04/24/21 11:52 04/24/21 11:52 04/24/21 16:14 04/24/21 11:52 04/24/21 16:14 General appearance: Present: no acute distress - EENT Eyes: Present: EOM intact ENT: hearing intact - Respiratory Respiratory effort: normal - Extremities Extremities: normal temperature, normal color - Abdominal General gastrointestinal: Present: soft, non-tender - Psychiatric Psychiatric: appropriate mood/affect, cooperative Results - Labs CBC & Chem 7: 04/24/21 07:16 04/24/21 07:16 Labs: Abnormal lab results 04/24/21 04/24/21 04/24/21 Range/Units 07:16 07:16 08:08 Hgb 9.0 L (11.8-15.2) gm/dl Hct 26.9 L (35.5-45.6) % Chloride 94.8 L (98-107) mmol/L Carbon Dioxide 31 H (22-30) mmol/L BUN 110 H (9-20) mg/dL Creatinine 11.5 H (0.8-1.3) mg/dL Glucose 283 H (75-100) mg/dL POC Glucose 249 H (70-105) mg/dL Albumin 3.7 L (3.9-5) g/dL 04/24/21 Range/Units 11:50 Hgb (11.8-15.2) gm/dl Hct (35.5-45.6) % Chloride (98-107) mmol/L Carbon Dioxide (22-30) mmol/L BUN (9-20) mg/dL Creatinine (0.8-1.3) mg/dL Glucose (75-100) mg/dL POC Glucose 204 H (70-105) mg/dL Albumin (3.9-5) g/dL Assessment and Plan 50-year-old male with end-stage renal disease who requires hemodialysis access. Discussed PermCath with patient. Risks, benefits, and alternatives discussed. Card provided. Patient is left-handed. Told to avoid IVs, venipunctures, and blood pressure cuff placements of the right upper extremity. Patient understands and agrees. Follow-up in [address] Tellez.
[2021-04-24] MEDS: ENOXAPARIN 80 MG/0.8 ML INJ SUB-Q SCH (16:39)
[2021-04-25] MEDS ORDERED: HEPARIN 10,000 UNITS/10 ML VIAL IV PRN (08:04)
[2021-04-25] MEDS ORDERED: EPOETIN ALFA-EPBX 10,000 UNIT/1 ML VIAL SUB-Q PRN (08:06)
[2021-04-25] MEDS: INSULIN LISPRO 100 UNIT/ML SUB-Q SCH ×6 (08:11→21:51)
[2021-04-25] MEDS: SEVELAMER CARBONATE 800 MG TAB PO SCH ×3 (08:11→16:16)
--- NOTE | 2021-04-25 08:12 | Progress Note ---
Assessment and Plan Assessment and plan: Patient 50-year-old male with a history of hypertension, hepatitis and diabetes x15 years presents to ED with a chief complaint of generalized weakness dizziness, nausea and vomiting. Patient states he was diagnosed with renal failure approximately 1 year ago and was told he would probably need hemodia lysis. His special education tutor has told him within the last month multiple times that he needed to go to the ED to be dialyzed. And initiate dialysis. Patient was hesitant to receive hemodialysis until yesterday when he began having profound nausea and vomiting unable to hold food down and associated dizziness as well. Patient states his generalized weakness and malaise got worse over the past 24 hours and decided to come to the ED. Upon presentation to the ED patient was found to be nauseated generalized weakness malaise associated with acute on chronic renal failure. Renal failure requiring hemodialysis. Renal consult was obtained by Dr. Martinez and plan was put in place for patient to receive hemodialysis. Will require vascular consult for Vas-Cath placement. At present patient nausea improved with antiemetics. Denies any chest pain shortness of breath no fever chills no nausea vomiting. No history of cough. No exposure to COVID-19. Patient denies any abdominal pain no abdominal bleeding. 04/24: Extensive discussion with the patient today vascular has been consulted for placement of dialysis access. Patient is on full dose anticoagulation awaiting cardiology evaluation which have consulted. If agreed that this is type II and does not need full dose anticoagulation he can be discontinued as patient also does not endorse any chest pain at this time. Will reevaluate le marcellus following dialysis and if need be will consult PT OT for further evaluation. Home medication reconciled which will help with blood sugar management with the addition of Lantus (1) ESRD needing dialysis Current Visit: Yes Status: Acute Plan to address problem: Patient end-stage renal disease with BUN of 112 and creatinine 11.1. Patient will require hemodialysis. Will place Vas-Cath with vascular consult. Patient special education tutor is aware and evaluated patient for hemodialysis. At present we wi ll monitor electrolytes and control nausea and vomiting until patient can receive hemodialysis. Supportive care IV fluids were needed Zofran Adequate pain control. DVT prophylaxis (2) Hepatitis C Current Visit: Yes Status: Acute Plan to address problem: Patient noted to have hepatitis C has been obtained in work-up of renal failure and hemodialysis. Suggest treatment as outpatient follow-up GI upon discharge. (3) Hypertension Current Visit: No Status: Acute Qualifiers: Hypertension type: essential hypertension Qualified Code(s): I10 - Essential (primary) hypertension Plan to address problem: We will hold antihypertensives. At this time patient's blood pressure is hypotensive. Has been corrected with IV replacement. Currently hemodynamically stable. Will restart blood pressure medications when patient's is able to tolerate. Was on amlodipine. (4) Insulin dependent diabetes mellitus Current Visit: No Status: Acute Plan to address problem: Most likely noncompliance. Patient states he was not sure if he is on 13 units twice daily or 32 units twice daily. Will initiate 13 units twice daily and titrate up accordingly. Place patient on sliding scale with Accu-Cheks before every meal and nightly. Patient will be on a renal diet and low concentrated sweet diet. (5) Non-ST elevated IA. Type II secondary to acute on chronic renal failure. (6) anemia of chronic disease (7) DVT prophylaxis Current Visit: Yes Status: Acute 04/25/2021 -Patient will have hemodialysis today. Tunneled IJ catheter was placed by vascular yesterday. Nephrology is following. -Type II NSTEMI; cardiology consulted pending evaluation. -Hep C need outpatient evaluation by GI. -Blood pressure is well controlled with amlodipine and continue with that -Blood sugar is uncontrolled and I have increased his Lantus from 13 units to 15 units twice daily, I added 10 units of AC insulin. We will continue to monitor -Patient need outpatient dialysis arrangement, discussed with special education tutor and he told me he is working on it. History Interval history: Patient was seen and evaluated this morning Patient was getting dialysis by the time I saw him Patient does not have any complaints Hospitalist Physical - Physical exam Narrative exam: Not in cardiopulmonary distress. The patient appeared well nourished and normally developed. Vital signs as documented. Head exam is unremarkable. No scleral icterus . Neck is without jugular venous distension, thyromegaly, or carotid bruits. Lungs are clear to auscultation. Cardiac exam reveals regular rate and Rhythm. Abdominal exam reveals normal bowel sounds, nontender, no organomegaly. Extremities are nonedematous and both femoral and pedal pulses are normal. CHARGING MANIPULATOR: Alert and oriented 3. No focal weakness. - Constitutional Vitals: Temp Pulse Resp BP Pulse Ox 97.5 F L 68 20 122/75 100 06/28/21 21:15 04/24/21 21:15 04/24/21 22:00 04/24/21 21:15 04/24/21 22:00 General appearance: Present: no acute distress HEART Score - HEART Score Troponin: Troponin T 0.210 ng/mL (0.00-0.029) H* 04/23/21 13:11 Results - Labs CBC & Chem 7: 04/24/21 07:16 04/24/21 07:16 Labs: Laboratory Last Values WBC 8.7 K/mm3 (4.5-11.0) 04/23/21 13:11 RBC 3.10 M/mm3 (3.65-5.03) L 04/23/21 13:11 Hgb 9.0 gm/dl (11.8-15.2) L 04/24/21 07:16 Hct 26.9 % (35.5-45.6) L 04/24/21 07:16 MCV 88 fl (84-94) 04/23/21 13:11 MCH 30 pg (28-32) 04/23/21 13:11 MCHC 34 % (32-34) 04/23/21 13:11 RDW 13.4 % (13.2-15.2) 04/23/21 13:11 Plt Count 253 K/mm3 (140-440) 04/23/21 13:11 Lymph % (Auto) 23.4 % (13.4-35.0) 04/23/21 13:11 Cobb % (Auto) 9.0 % (0.0-7.3) H 04/23/21 13:11 Eos % (Auto) 2.4 % (0.0-4.3) 04/23/21 13:11 Baso % (Auto) 1.4 % (0.0-1.8) 04/23/21 13:11 Lymph # (Auto) 2.0 K/mm3 (1.2-5.4) 04/23/21 13:11 Cobb # (Auto) 0.8 K/mm3 (0.0-0.8) 04/23/21 13:11 Eos # (Auto) 0.2 K/mm3 (0.0-0.4) 04/23/21 13:11 Baso # (Auto) 0.1 K/mm3 (0.0-0.1) 04/23/21 13:11 Seg Neutrophils % 63.8 % (40.0-70.0) 04/23/21 13:11 Seg Neutrophils # 5.6 K/mm3 (1.8-7.7) 04/23/21 13:11 PT 14.2 Sec. (12.2-14.9) 04/23/21 13:11 INR 1.04 (0.87-1.13) 04/23/21 13:11 Sodium 140 mmol/L (137-145) 04/24/21 07:16 Potassium 4.3 mmol/L (3.6-5.0) 04/24/21 07:16 Chloride 94.8 mmol/L (98-107) L 04/24/21 07:16 Carbon Dioxide 31 mmol/L (22-30) H 04/24/21 07:16 Anion Gap 19 mmol/L 04/24/21 07:16 BUN 110 mg/dL (9-20) H 04/24/21 07:16 Creatinine 11.5 mg/dL (0.8-1.3) H 04/24/21 07:16 Estimated GFR 6 ml/min 04/24/21 07:16 BUN/Creatinine Ratio 10 % 04/24/21 07:16 Glucose 283 mg/dL (75-100) H 04/24/21 07:16 POC Glucose 327 mg/dL (70-105) H 04/25/21 07:39 Lactic Acid 1.40 mmol/L (0.7-2.0) 04/23/21 13:11 Calcium 9.8 mg/dL (8.4-10.2) 04/24/21 07:16 Phosphorus 7.40 mg/dL (2.5-4.5) H 04/23/21 13:11 Magnesium 2.50 mg/dL (1.7-2.3) H 04/23/21 13:11 Total Bilirubin 0.20 mg/dL (0.1-1.2) 04/24/21 07:16 AST 21 units/L (5-40) 04/24/21 07:16 ALT 22 units/L (7-56) 04/24/21 07:16 Alkaline Phosphatase 90 units/L (35-129) 04/24/21 07:16 Total Creatine Kinase 357 units/L (55-170) H 04/23/21 13:11 Troponin T 0.210 ng/mL (0.00-0.029) H* 04/23/21 13:11 Total Protein 6.9 g/dL (6.3-8.2) 04/24/21 07:16 Albumin 3.7 g/dL (3.9-5) L 04/24/21 07:16 Albumin/Globulin Ratio 1.2 % 04/24/21 07:16 Triglycerides 73 mg/dL (2-149) 04/23/21 13:11 Cholesterol 93 mg/dL (50-199) 04/23/21 13:11 LDL Cholesterol Direct 48 mg/dL (50-130) L 04/23/21 13:11 HDL Cholesterol 41 mg/dL (40-59) 04/23/21 13:11 Cholesterol/HDL Ratio 2.26 % 04/23/21 13:11 TSH 1.700 mlU/mL (0.270-4.200) 04/23/21 13:11 Coronavirus (PCR) Negative (Negative) 04/24/21 Unknown Hepatitis A IgM Ab Non-reactive (NonReactive) 04/23/21 13:11 Hep Bs Antigen Non-reactive (Negative) 04/23/21 13:11 Hep B Core IgM Ab Non-reactive (NonReactive) 04/23/21 13:11 Hepatitis C Antibody Reactive (NonReactive) A 04/23/21 13:11 Javed/IV: Voiding Method Toilet Active Medications - Current Medications Current Medications: Generic Name Dose Route Start Last Admin Trade Name Freq PRN Reason Stop Dose Admin Acetaminophen 650 mg 04/23/21 15:26 Acetaminophen 325 Mg Tab PO Q4H PRN Pain MILD(1-3)/Fever >100.5/BROWN Amlodipine Besylate 10 mg 04/24/21 12:00 04/24/21 12:00 Amlodipine 10 Mg Tab PO Not Given DAILY LYN Aspirin 81 mg 04/24/21 12:00 04/24/21 12:00 Aspirin Ec 81 Mg Tab PO Not Given DAILY LYN Calcitriol 0.5 mcg 04/25/21 10:00 Calcitriol 0.5 Mcg Cap PO DAILY LYN Dextrose 50 ml 04/23/21 15:26 Dextrose 50% In Water (25gm) 50 Ml Syringe IV Q30MIN PRN Hypoglycemia Protocol Docusate Sodium 100 mg 04/23/21 22:00 04/24/21 22:18 Docusate Sodium 100 Mg Cap PO 100 mg BID LYN Administration Enoxaparin Sodium 80 mg 04/23/21 16:00 04/24/21 16:39 Enoxaparin 80 Mg/0.8 Ml Inj 1 mg/kg (180 mg) 80 mg SUB-Q Administration Q24H LYN Protocol Heparin Sodium (Porcine) 3,000 unit 04/25/21 08:04 Heparin 10,000 Units/10 Ml Vial IV DAMON PRN hemodialysis Sodium Chloride 1,000 mls @ 75 mls/hr 04/23/21 21:45 04/23/21 23:20 Nacl 0.9% 1000 Ml IV 75 mls/hr DIRECT LYN Administration Sodium Chloride 100 mls @ 999 mls/hr 04/24/21 09:32 Nacl 0.9% IV DAMON PRN Hypotension Insulin Glargine 13 units 04/24/21 12:00 04/24/21 22:19 Insulin Glargine 100 Units/Ml SUB-Q 13 units BID LYN Administration Insulin Human Lispro 0 unit 04/24/21 11:30 04/24/21 22:24 Insulin Lispro 100 Unit/Ml SUB-Q 3 unit ACHS LYN Administration Protocol Morphine Sulfate 2 mg 04/23/21 15:26 Morphine 2 Mg/1 Ml Inj IV Q4H PRN Pain, Moderate (4-6) Ondansetron HCl 4 mg 04/23/21 15:26 Ondansetron 4 Mg/2 Ml Inj IV Q8H PRN Nausea And Vomiting Sevelamer Carbonate 1,600 mg 04/24/21 07:30 04/24/21 16:39 Sevelamer Carbonate 800 Mg Tab PO 1,600 mg AC LYN Administration Sodium Chloride 10 ml 04/23/21 22:00 04/24/21 22:18 Sodium Chloride 0.9% 10 Ml Flush Syringe IV 10 ml BID LYN Administration Sodium Chloride 10 ml 04/23/21 16:26 Sodium Chloride 0.9% 10 Ml Flush Syringe IV PRN PRN LINE FLUSH
[2021-04-25] MEDS ORDERED: EPOETIN ALFA-EPBX 2,000 UNIT/1 ML INJ NICU IV PRN (08:26)
[2021-04-25] MEDS ORDERED: EPOETIN ALFA-EPBX 2,000 UNIT/1 ML INJ NICU SUB-Q PRN (09:00)
[2021-04-25] MEDS: ASPIRIN EC 81 MG TAB PO SCH (09:57)
[2021-04-25] MEDS: INSULIN GLARGINE 100 UNITS/ML SUB-Q SCH ×2 (09:57→21:51)
[2021-04-25] MEDS: DOCUSATE SODIUM 100 MG CAP PO SCH ×2 (09:57→21:50)
--- NOTE | 2021-04-25 10:08 | Progress Note ---
Assessment and Plan 1. ESRD: CKD has progressed to ESRD. Patient presented with uremic symptoms. Monitor renal function. Reanl prognosis is poor. Avoid nephrotoxic agents. Meds dosage based on GFR. Patient is agreed to start on hemodialysis. Explained the indications, benefits, risks and alternatives involved in hemodialysis. He voiced understanding and gave verbal consent. Hemodialysis: 04/24, 04/25. 2. FEN: Monitor lytes and volume status. 3. N & V: 2/2 uremia. Improving with HD. 4. DM: Monitor blood sugar. 5. Hypotension: Initial low BP, improved now. Monitor. 6. Anemia: Likely 2/2 CKD / ESRD. Epogen. Compliance encouraged. Await outpatient HD chair. Subjective: Patient was seen and examined at the bedside. Doing ok and tolerating HD well. Examination: General appearance: well-developed, appears stated age, no distress HEENT: ATNC, Pupils equal Neck: Trachea midline Respiratory: ctab Cardiology: regular, S1S2, no murmur Gastrointestinal: normoactive bowel sounds, no tenderness, not distended Integumentary: warm and dry, no obvious rash Neurologic: alert, conversing, able to move extremities Ext: no edema noted Hemodialysis access: R IJ tunnel catheter Subjective Date of service: 04/25/21 Objective - Lab 04/24/21 07:16 04/24/21 07:16 Most recent lab results Calcium 9.8 mg/dL (8.4-10.2) 04/24/21 07:16 Phosphorus 7.40 mg/dL (2.5-4.5) H 04/23/21 13:11 Magnesium 2.50 mg/dL (1.7-2.3) H 04/23/21 13:11 Medications & Allergies - Medications Allergies/Adverse Reactions: Allergies No Known Allergies Allergy (Unverified 05/15/16 07:36) Home Medications: Home Medications Medication Instructions Recorded Confirmed Last Taken Type Aspirin [Lo-Dose Aspirin EC] 81 mg PO DAILY 09/02/17 04/24/21 09/01/17 History Insulin Glargine,Hum.rec.anlog 13 units SQ BID 09/02/17 04/24/21 09/01/17 History [Lantus] amLODIPine 10 mg PO DAILY 09/02/17 04/24/21 09/01/17 History Insulin Aspart (Nf) [NovoLOG 100 0 unit SQ AC 12/26/20 04/24/21 Unknown History UNITS/ML VIAL] calcitrioL [Rocaltrol] 1 cap PO DAILY 12/26/20 04/24/21 Unknown History Active Medications: Generic Name Dose Route Start Last Admin Trade Name Freq PRN Reason Stop Dose Admin Acetaminophen 650 mg 04/23/21 15:26 Acetaminophen 325 Mg Tab PO Q4H PRN Pain MILD(1-3)/Fever >100.5/BROWN Amlodipine Besylate 10 mg 04/24/21 12:00 04/24/21 12:00 Amlodipine 10 Mg Tab PO Not Given DAILY LYN Aspirin 81 mg 04/24/21 12:00 04/25/21 09:57 Aspirin Ec 81 Mg Tab PO 81 mg DAILY LYN Administration Calcitriol 0.5 mcg 04/25/21 10:00 Calcitriol 0.5 Mcg Cap PO DAILY LYN Dextrose 50 ml 04/23/21 15:26 Dextrose 50% In Water (25gm) 50 Ml Syringe IV Q30MIN PRN Hypoglycemia Protocol Docusate Sodium 100 mg 04/23/21 22:00 04/25/21 09:57 Docusate Sodium 100 Mg Cap PO 100 mg BID LYN Administration Enoxaparin Sodium 80 mg 04/23/21 16:00 04/24/21 16:39 Enoxaparin 80 Mg/0.8 Ml Inj 1 mg/kg (180 mg) 80 mg SUB-Q Administration Q24H [facility] Protocol Heparin Sodium (Porcine) 3,000 unit 04/25/21 08:04 Heparin 10,000 Units/10 Ml Vial IV DAMON PRN hemodialysis Sodium Chloride 1,000 mls @ 75 mls/hr 04/23/21 21:45 04/23/21 23:20 Nacl 0.9% 1000 Ml IV 75 mls/hr DIRECT LYN Administration Sodium Chloride 100 mls @ 999 mls/hr 04/24/21 09:32 Nacl 0.9% IV DAMON PRN Hypotension Insulin Glargine 15 units 04/25/21 10:00 04/25/21 09:57 Insulin Glargine 100 Units/Ml SUB-Q 15 units BID LYN Administration Insulin Human Lispro 0 unit 04/24/21 11:30 04/25/21 08:11 Insulin Lispro 100 Unit/Ml SUB-Q 6 unit ACHS LYN Administration Protocol Insulin Human Lispro 10 unit 04/25/21 11:30 Insulin Lispro 100 Unit/Ml SUB-Q AC LYN Morphine Sulfate 2 mg 04/23/21 15:26 Morphine 2 Mg/1 Ml Inj IV Q4H PRN Pain, Moderate (4-6) Ondansetron HCl 4 mg 04/23/21 15:26 Ondansetron 4 Mg/2 Ml Inj IV Q8H PRN Nausea And Vomiting Sevelamer Carbonate 1,600 mg 04/24/21 07:30 04/25/21 08:11 Sevelamer Carbonate 800 Mg Tab PO 1,600 mg AC LYN Administration Sodium Chloride 10 ml 04/23/21 22:00 04/25/21 09:57 Sodium Chloride 0.9% 10 Ml Flush Syringe IV 10 ml BID LYN Administration Sodium Chloride 10 ml 04/23/21 16:26 Sodium Chloride 0.9% 10 Ml Flush Syringe IV PRN PRN LINE FLUSH
--- NOTE | 2021-04-25 11:35 | Consultation ---
History of Present Illness Consult date: 04/25/21 Consult reason: elevated troponin History of present illness: This is a 50-year old M with CKD that has progressed to end stage renal disease, [id number] on presentation. Nephrology has consulted and the patient has started on hemodialysis. A cardiac consultation was requested for isolated rise of troponin measurement, in the setting of renal disease. There were no report of chest pain, or unusual shortness of breath. Chest x-ray is negative and his ECG shows normal sinus rhythm. There is no prior cardiac history. Most recent cardiac workup was done in 2017. At that time an echocardiogram showeda normal left ventricular ejection fraction 55-60%. Past History Past Medical History: anemia, diabetes, hepatitis, hypertension, renal failure Past Surgical History: No surgical history Social history: no significant social history, lives with family, other (Lives with brother) Family history: no significant family history, diabetes, hypertension Medications and Allergies Allergies Allergy/AdvReac Type Severity Reaction Status Date / Time No Known Allergies Allergy Unverified 05/15/16 07:36 Home Medications Medication Instructions Recorded Confirmed Last Taken Type Aspirin [Lo-Dose Aspirin EC] 81 mg PO DAILY 09/02/17 04/24/21 09/01/17 History Insulin Glargine,Hum.rec.anlog 13 units SQ BID 09/02/17 04/24/21 09/01/17 Histor y [Lantus] amLODIPine 10 mg PO DAILY 09/02/17 04/24/21 09/01/17 History Insulin Aspart (Nf) [NovoLOG 100 0 unit SQ AC 12/26/20 04/24/21 Unknown History UNITS/ML VIAL] calcitrioL [Rocaltrol] 1 cap PO DAILY 12/26/20 04/24/21 Unknown History Active Meds: Active Medications Acetaminophen (Acetaminophen 325 Mg Tab) 650 mg PO Q4H PRN PRN Reason: Pain MILD(1-3)/Fever >100.5/BROWN Amlodipine Besylate (Amlodipine 10 Mg Tab) 10 mg PO DAILY [facility] Last Admin: 04/24/21 12:00 Dose: Not Given Documented by: Aspirin (Aspirin Ec 81 Mg Tab) 81 mg PO DAILY [facility] Last Admin: 04/25/21 09:57 Dose: 81 mg Documented by: Calcitriol (Calcitriol 0.5 Mcg Cap) 0.5 mcg PO DAILY [facility] Dextrose (Dextrose 50% In Water (25gm) 50 Ml Syringe) 50 ml IV Q30MIN PRN; Protocol PRN Reason: Hypoglycemia Docusate Sodium (Docusate Sodium 100 Mg Cap) 100 mg PO BID [facility] Last Admin: 04/25/21 09:57 Dose: 100 mg Documented by: Enoxaparin Sodium (Enoxaparin 80 Mg/0.8 Ml Inj) 80 mg 1 mg/kg (180 mg) SUB-Q Q24H [facility]; Protocol Last Admin: 04/24/21 16:39 Dose: 80 mg Documented by: Heparin Sodium (Porcine) (Heparin 10,000 Units/10 Ml Vial) 3,000 unit IV DAMON PRN PRN Reason: hemodialysis Sodium Chloride (Nacl 0.9% 1000 Ml) 1,000 mls @ 75 mls/hr IV DIRECT [facility] Last Admin: 04/23/21 23:20 Dose: 75 mls/hr Documented by: Sodium Chloride (Nacl 0.9%) 100 mls @ 999 mls/hr IV DAMON PRN PRN Reason: Hypotension Insulin Glargine (Insulin Glargine 100 Units/Ml) 15 units SUB-Q BID [facility] Last Admin: 04/25/21 09:57 Dose: 15 units Documented by: Insulin Human Lispro (Insulin Lispro 100 Unit/Ml) 0 unit SUB-Q ACHS [facility]; Protocol Last Admin: 04/25/21 08:11 Dose: 6 unit Documented by: Insulin Human Lispro (Insulin Lispro 100 Unit/Ml) 10 unit SUB-Q AC [facility] Morphine Sulfate (Morphine 2 Mg/1 Ml Inj) 2 mg IV Q4H PRN PRN Reason: Pain, Moderate (4-6) Ondansetron HCl (Ondansetron 4 Mg/2 Ml Inj) 4 mg IV Q8H PRN PRN Reason: Nausea And Vomiting Sevelamer Carbonate (Sevelamer Carbonate 800 Mg Tab) 1,600 mg PO AC [facility] Last Admin: 04/25/21 08:11 Dose: 1,600 mg Documented by: Sodium Chloride (Sodium Chloride 0.9% 10 Ml Flush Syringe) 10 ml IV BID [facility] Last Admin: 04/25/21 09:57 Dose: 10 ml Documented by: Sodium Chloride (Sodium Chloride 0.9% 10 Ml Flush Syringe) 10 ml IV PRN PRN PRN Reason: LINE FLUSH Physical Examination Vital Signs Temp Pulse Resp BP Pulse Ox 98.3 F 84 18 73/43 97 04/23/21 12:45 04/23/21 12:45 04/23/21 12:45 04/23/21 12:45 04/23/21 12:45 General appearance: no acute distress HEENT: Positive: PERRL Neck: Positive: trachea midline Cardiac: Positive: Reg Rate and Rhythm Results 04/24/21 07:16 04/24/21 07:16 Assessment and Plan Nonspecific elevated troponin in the setting of renal disease LVEF 55-60% by echo in 2017 CKD with progression to ESRD initiated on HD Hypertension
[2021-04-25] MEDS: EPOETIN ALFA-EPBX 10,000 UNIT/1 ML VIAL IV SCH (12:19)
[2021-04-25] MEDS: CALCITRIOL 0.5 MCG CAP PO SCH (16:15)
[2021-04-25] MEDS: ENOXAPARIN 80 MG/0.8 ML INJ SUB-Q SCH (16:15)
[2021-04-25] MEDS: amLODIPine 10 MG TAB PO SCH (16:15)
[2021-04-26] MEDS: INSULIN LISPRO 100 UNIT/ML SUB-Q SCH ×5 (07:48→21:51)
[2021-04-26] MEDS: SEVELAMER CARBONATE 800 MG TAB PO SCH ×3 (07:57→18:41)
--- NOTE | 2021-04-26 07:59 | Progress Note ---
Assessment and Plan Assessment and plan: Patient 50-year-old male with a history of hypertension, hepatitis and diabetes x15 years presents to ED with a chief complaint of generalized weakness dizziness, nausea and vomiting. Patient states he was diagnosed with renal failure approximately 1 year ago and was told he would probably need hemodia lysis. His approver has told him within the last month multiple times that he needed to go to the ED to be dialyzed. And initiate dialysis. Patient was hesitant to receive hemodialysis until yesterday when he began having profound nausea and vomiting unable to hold food down and associated dizziness as well. Patient states his generalized weakness and malaise got worse over the past 24 hours and decided to come to the ED. Upon presentation to the ED patient was found to be nauseated generalized weakness malaise associated with acute on chronic renal failure. Renal failure requiring hemodialysis. Renal consult was obtained by Dr. Martinez and plan was put in place for patient to receive hemodialysis. Will require vascular consult for Vas-Cath placement. At present patient nausea improved with antiemetics. Denies any chest pain shortness of breath no fever chills no nausea vomiting. No history of cough. No exposure to COVID-19. Patient denies any abdominal pain no abdominal bleeding. 04/24: Extensive discussion with the patient today vascular has been consulted for placement of dialysis access. Patient is on full dose anticoagulation awaiting cardiology evaluation which have consulted. If agreed that this is type II and does not need full dose anticoagulation he can be discontinued as patient also does not endorse any chest pain at this time. Will reevaluate le marcellus following dialysis and if need be will consult PT OT for further evaluation. Home medication reconciled which will help with blood sugar management with the addition of Lantus (1) ESRD needing dialysis Current Visit: Yes Status: Acute Plan to address problem: Patient end-stage renal disease with BUN of 112 and creatinine 11.1. Patient will require hemodialysis. Will place Vas-Cath with vascular consult. Patient approver is aware and evaluated patient for hemodialysis. At present we wi ll monitor electrolytes and control nausea and vomiting until patient can receive hemodialysis. Supportive care IV fluids were needed Zofran Adequate pain control. DVT prophylaxis (2) Hepatitis C Current Visit: Yes Status: Acute Plan to address problem: Patient noted to have hepatitis C has been obtained in work-up of renal failure and hemodialysis. Suggest treatment as outpatient follow-up GI upon discharge. (3) Hypertension Current Visit: No Status: Acute Qualifiers: Hypertension type: essential hypertension Qualified Code(s): I10 - Essential (primary) hypertension Plan to address problem: We will hold antihypertensives. At this time patient's blood pressure is hypotensive. Has been corrected with IV replacement. Currently hemodynamically stable. Will restart blood pressure medications when patient's is able to tolerate. Was on amlodipine. (4) Insulin dependent diabetes mellitus Current Visit: No Status: Acute Plan to address problem: Most likely noncompliance. Patient states he was not sure if he is on 13 units twice daily or 32 units twice daily. Will initiate 13 units twice daily and titrate up accordingly. Place patient on sliding scale with Accu-Cheks before every meal and nightly. Patient will be on a renal diet and low concentrated sweet diet. (5) Non-ST elevated ME. Type II secondary to acute on chronic renal failure. (6) anemia of chronic disease (7) DVT prophylaxis Current Visit: Yes Status: Acute 04/25/2021 -Patient will have hemodialysis today. Tunneled IJ catheter was placed by vascular yesterday. Nephrology is following. -Type II NSTEMI; cardiology consulted pending evaluation. -Hep C need outpatient evaluation by GI. -Blood pressure is well controlled with amlodipine and continue with that -Blood sugar is uncontrolled and I have increased his Lantus from 13 units twice daily to 15 units twice daily , I added 10 units of AC insulin. We will continue to monitor -Patient need outpatient dialysis arrangement, discussed with approver and he told me he is working on it. 04/26/2021 -Patient had 2 sessions of dialysis, nephrology is following and will arrange outpatient dialysis chair. -Yesterday his blood sugar was high and his Lantus was increased from 13 units twice daily to 15 units twice daily, and also was put on 10 units of AC insulin. Patient had episode of hypoglycemia last night with blood glucose level of 67 and this morning his blood sugar was 27. I decreased his Lantus to 10 units and discontinued his insulin. Patient was treated according to hypoglycemia protocol. We will hold morning insulin. -Cardiology was consulted for elevated troponin and will do echo History Interval history: Patient was seen and evaluated this morning Patient was getting dialysis by the time I saw him Patient did not have any complaints Hospitalist Physical - Physical exam Narrative exam: Not in cardiopulmonary distress. The patient appeared well nourished and normally developed. Vital signs as documented. Head exam is unremarkable. No scleral icterus . Neck is without jugular venous distension, thyromegaly, or carotid bruits. Lungs are clear to auscultation. Cardiac exam reveals regular rate and Rhythm. Abdominal exam reveals normal bowel sounds, nontender, no organomegaly. Extremities are nonedematous and both femoral and pedal pulses are normal. 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 No focal weakness. - Constitutional Vitals: Temp Pulse Resp BP Pulse Ox 98.7 F 71 18 129/86 100 04/25/21 15:47 04/25/21 15:47 04/25/21 22:00 04/25/21 15:47 04/25/21 22:00 General appearance: Present: no acute distress HEART Score - HEART Score Troponin: Troponin T 0.210 ng/mL (0.00-0.029) H* 04/23/21 13:11 Results - Labs CBC & Chem 7: 04/24/21 07:16 04/24/21 07:16 Labs: Laboratory Last Values WBC 8.7 K/mm3 (4.5-11.0) 04/23/21 13:11 RBC 3.10 M/mm3 (3.65-5.03) L 04/23/21 13:11 Hgb 9.0 gm/dl (11.8-15.2) L 04/24/21 07:16 Hct 26.9 % (35.5-45.6) L 04/24/21 07:16 MCV 88 fl (84-94) 04/23/21 13:11 MCH 30 pg (28-32) 04/23/21 13:11 MCHC 34 % (32-34) 04/23/21 13:11 RDW 13.4 % (13.2-15.2) 04/23/21 13:11 Plt Count 253 K/mm3 (140-440) 04/23/21 13:11 Lymph % (Auto) 23.4 % (13.4-35.0) 04/23/21 13:11 [place] % (Auto) 9.0 % (0.0-7.3) H 04/23/21 13:11 Eos % (Auto) 2.4 % (0.0-4.3) 04/23/21 13:11 Baso % (Auto) 1.4 % (0.0-1.8) 04/23/21 13:11 Lymph # (Auto) 2.0 K/mm3 (1.2-5.4) 04/23/21 13:11 [place] # (Auto) 0.8 K/mm3 (0.0-0.8) 04/23/21 13:11 Eos # (Auto) 0.2 K/mm3 (0.0-0.4) 04/23/21 13:11 Baso # (Auto) 0.1 K/mm3 (0.0-0.1) 04/23/21 13:11 Seg Neutrophils % 63.8 % (40.0-70.0) 04/23/21 13:11 Seg Neutrophils # 5.6 K/mm3 (1.8-7.7) 04/23/21 13:11 PT 14.2 Sec. (12.2-14.9) 04/23/21 13:11 INR 1.04 (0.87-1.13) 04/23/21 13:11 Sodium 140 mmol/L (137-145) 04/24/21 07:16 Potassium 4.3 mmol/L (3.6-5.0) 04/24/21 07:16 Chloride 94.8 mmol/L (98-107) L 04/24/21 07:16 Carbon Dioxide 31 mmol/L (22-30) H 04/24/21 07:16 Anion Gap 19 mmol/L 04/24/21 07:16 BUN 110 mg/dL (9-20) H 04/24/21 07:16 Creatinine 11.5 mg/dL (0.8-1.3) H 04/24/21 07:16 Estimated GFR 6 ml/min 04/24/21 07:16 BUN/Creatinine Ratio 10 % 04/24/21 07:16 Glucose 283 mg/dL (75-100) H 04/24/21 07:16 POC Glucose 23 mg/dL (70-105) L 04/26/21 07:34 Lactic Acid 1.40 mmol/L (0.7-2.0) 04/23/21 13:11 Calcium 9.8 mg/dL (8.4-10.2) 04/24/21 07:16 Phosphorus 7.40 mg/dL (2.5-4.5) H 04/23/21 13:11 Magnesium 2.50 mg/dL (1.7-2.3) H 04/23/21 13:11 Total Bilirubin 0.20 mg/dL (0.1-1.2) 04/24/21 07:16 AST 21 units/L (5-40) 04/24/21 07:16 ALT 22 units/L (7-56) 04/24/21 07:16 Alkaline Phosphatase 90 units/L (35-129) 04/24/21 07:16 Total Creatine Kinase 357 units/L (55-170) H 04/23/21 13:11 Troponin T 0.210 ng/mL (0.00-0.029) H* 04/23/21 13:11 Total Protein 6.9 g/dL (6.3-8.2) 04/24/21 07:16 Albumin 3.7 g/dL (3.9-5) L 04/24/21 07:16 Albumin/Globulin Ratio 1.2 % 04/24/21 07:16 Triglycerides 73 mg/dL (2-149) 04/23/21 13:11 Cholesterol 93 mg/dL (50-199) 04/23/21 13:11 LDL Cholesterol Direct 48 mg/dL (50-130) L 04/23/21 13:11 HDL Cholesterol 41 mg/dL (40-59) 04/23/21 13:11 Cholesterol/HDL Ratio 2.26 % 04/23/21 13:11 TSH 1.700 mlU/mL (0.270-4.200) 04/23/21 13:11 Coronavirus (PCR) Negative (Negative) 04/24/21 Unknown Hepatitis A IgM Ab Non-reactive (NonReactive) 04/23/21 13:11 Hep Bs Antigen Non-reactive (Negative) 04/23/21 13:11 Hep B Core IgM Ab Non-reactive (NonReactive) 04/23/21 13:11 Hepatitis C Antibody Reactive (NonReactive) A 04/23/21 13:11 Javed/IV: Voiding Method Toilet Active Medications - Current Medications Current Medications: Generic Name Dose Route Start Last Admin Trade Name Freq PRN Reason Stop Dose Admin Acetaminophen 650 mg 04/23/21 15:26 Acetaminophen 325 Mg Tab PO Q4H PRN Pain MILD(1-3)/Fever >100.5/BROWN Amlodipine Besylate 10 mg 04/24/21 12:00 04/25/21 16:15 Amlodipine 10 Mg Tab PO 10 mg DAILY LYN Administration Aspirin 81 mg 04/24/21 12:00 04/25/21 09:57 Aspirin Ec 81 Mg Tab PO 81 mg DAILY LYN Administration Calcitriol 0.5 mcg 04/25/21 10:00 04/25/21 16:15 Calcitriol 0.5 Mcg Cap PO 0.5 mcg DAILY LYN Administration Dextrose 50 ml 04/23/21 15:26 04/26/21 07:47 Dextrose 50% In Water (25gm) 50 Ml Syringe IV 50 ml Q30MIN PRN Administration Hypoglycemia Protocol Docusate Sodium 100 mg 04/23/21 22:00 04/25/21 21:50 Docusate Sodium 100 Mg Cap PO 100 mg BID LYN Administration Enoxaparin Sodium 80 mg 04/23/21 16:00 04/25/21 16:15 Enoxaparin 80 Mg/0.8 Ml Inj 1 mg/kg (180 mg) 80 mg SUB-Q Administration Q24H [facility] Protocol Heparin Sodium (Porcine) 3,000 unit 04/25/21 08:04 Heparin 10,000 Units/10 Ml Vial IV DAMON PRN hemodialysis Sodium Chloride 1,000 mls @ 75 mls/hr 04/23/21 21:45 04/23/21 23:20 Nacl 0.9% 1000 Ml IV 75 mls/hr DIRECT LYN Administration Sodium Chloride 100 mls @ 999 mls/hr 04/24/21 09:32 Nacl 0.9% IV DAMON PRN Hypotension Insulin Glargine 10 units 04/26/21 07:56 Insulin Glargine 100 Units/Ml SUB-Q BID [facility] Insulin Human Lispro 0 unit 04/24/21 11:30 04/26/21 07:48 Insulin Lispro 100 Unit/Ml SUB-Q Not Given ACHS [facility] Protocol Morphine Sulfate 2 mg 04/23/21 15:26 Morphine 2 Mg/1 Ml Inj IV Q4H PRN Pain, Moderate (4-6) Ondansetron HCl 4 mg 04/23/21 15:26 Ondansetron 4 Mg/2 Ml Inj IV Q8H PRN Nausea And Vomiting Sevelamer Carbonate 1,600 mg 04/24/21 07:30 04/25/21 16:16 Sevelamer Carbonate 800 Mg Tab PO 1,600 mg AC LYN Administration Sodium Chloride 10 ml 04/23/21 22:00 04/25/21 21:51 Sodium Chloride 0.9% 10 Ml Flush Syringe IV 10 ml BID LYN Administration Sodium Chloride 10 ml 04/23/21 16:26 Sodium Chloride 0.9% 10 Ml Flush Syringe IV PRN PRN LINE FLUSH
[2021-04-26 08:47] LABS: Calcium 9.8 mg/dL (8.4-10.2)
--- NOTE | 2021-04-26 09:47 | Progress Note ---
Assessment and Plan Nonspecific elevated troponin in the setting of renal disease LVEF 55-60% by echo in 2017 CKD with progression to ESRD initiated on HD Hypertension Recommendation: Echocardiogram for left ventricular function assessment. Further considerations for cardiac evaluation including noninvasive ischemia evaluation, will depend on clinical course. Subjective Date of service: 04/26/21 Interval history: Patient is resting in bed and appears comfortable. No cardiac events reported. Objective Vital Signs Temp Pulse Resp BP Pulse Ox 04/26/21 08:01 20 100 04/25/21 22:00 18 100 04/25/21 15:47 98.7 F 71 20 129/86 100 04/25/21 13:10 98.0 F 74 18 128/83 04/25/21 12:50 73 119/79 04/25/21 12:30 75 123/81 04/25/21 12:15 76 126/81 04/25/21 12:00 78 121/82 04/25/21 11:45 78 124/86 04/25/21 11:30 76 126/84 04/25/21 11:15 78 130/86 04/25/21 11:00 78 131/86 04/25/21 10:45 79 140/88 04/25/21 10:30 79 145/91 04/25/21 10:20 97.8 F 79 18 153/99 04/25/21 10:00 20 100 - Physical Examination General: No Apparent Distress HEENT: Positive: PERRL Neck: Positive: trachea midline Cardiac: Positive: Reg Rate and Rhythm Lungs: Positive: Decreased Breath Sounds - Labs and Meds Comprehensive Metabolic Panel 04/26/21 Range/Units 08:05 Sodium 140 (137-145) mmol/L Potassium 4.3 (3.6-5.0) mmol/L Chloride 99.5 (98-107) mmol/L Carbon Dioxide 30 (22-30) mmol/L BUN 39 H (9-20) mg/dL Creatinine 6.1 H (0.8-1.3) mg/dL Glucose 189 H (75-100) mg/dL Calcium 9.8 (8.4-10.2) mg/dL
[2021-04-26] MEDS: CALCITRIOL 0.5 MCG CAP PO SCH (10:00)
[2021-04-26] MEDS: DOCUSATE SODIUM 100 MG CAP PO SCH ×2 (11:24→21:46)
[2021-04-26] MEDS: ASPIRIN EC 81 MG TAB PO SCH (11:24)
[2021-04-26] MEDS: amLODIPine 10 MG TAB PO SCH (11:25)
[2021-04-26] MEDS: INSULIN GLARGINE 100 UNITS/ML SUB-Q SCH ×2 (11:26→21:56)
--- NOTE | 2021-04-26 13:16 | Progress Note ---
Assessment and Plan 1. ESRD: CKD has progressed to ESRD. Patient presented with uremic symptoms. Monitor renal function. Reanl prognosis is poor. Avoid nephrotoxic agents. Meds dosage based on GFR. Patient is agreed to start on hemodialysis. Explained the indications, benefits, risks and alternatives involved in hemodialysis. He voiced understanding and gave verbal consent. Hemodialysis: 04/24, 04/25, 04/26. 2. FEN: Monitor lytes and volume status. 3. N & V: 2/2 uremia. Improvied. 4. Nonspecific elevated troponin: In the setting of ESRD. LVEF 55-60% by echo in 2017. Followed by Cards. D/w , Lovenox stopped. 5. DM: Monitor blood sugar. 6. Hypotension: Initial low BP, improved now. Monitor. 7. Anemia: Likely 2/2 CKD / ESRD. Epogen. Compliance encouraged. Outpatient HD chair at [facility]. Subjective: Patient was seen and examined at the bedside. Doing ok and tolerating HD well. Examination: General appearance: well-developed, appears stated age, no distress HEENT: ATNC, Pupils equal Neck: Trachea midline Respiratory: ctab Cardiology: regular, S1S2, no murmur Gastrointestinal: normoactive bowel sounds, no tenderness, not distended Integumentary: warm and dry, no obvious rash Neurologic: alert, conversing, able to move extremities Ext: no edema noted Hemodialysis access: R IJ tunnel catheter, slight oozing of blood from the exit site Subjective Date of service: 04/26/21 Objective - Vital Signs Vital signs: Vital Signs - 12hr 04/26/21 04/26/21 08:01 10:50 Temperature 98.0 F Pulse Rate 83 Respiratory 20 18 Rate Blood Pressure 118/83 O2 Sat by Pulse 100 99 Oximetry - Lab 04/24/21 07:16 04/26/21 08:05 Most recent lab results Calcium 9.8 mg/dL (8.4-10.2) 04/26/21 08:05 Phosphorus 7.40 mg/dL (2.5-4.5) H 04/23/21 13:11 Magnesium 2.50 mg/dL (1.7-2.3) H 04/23/21 13:11 Medications & Allergies - Medications Allergies/Adverse Reactions: Allergies No Known Allergies Allergy (Unverified 05/15/16 07:36) Home Medications: Home Medications Medication Instructions Recorded Confirmed Last Taken Type Aspirin [Lo-Dose Aspirin EC] 81 mg PO DAILY 09/02/17 04/24/21 09/01/17 History Insulin Glargine,Hum.rec.anlog 13 units SQ BID 09/02/17 04/24/21 09/01/17 History [Lantus] amLODIPine 10 mg PO DAILY 09/02/17 04/24/21 09/01/17 History Insulin Aspart (Nf) [NovoLOG 100 0 unit SQ AC 12/26/20 04/24/21 Unknown History UNITS/ML VIAL] calcitrioL [Rocaltrol] 1 cap PO DAILY 12/26/20 04/24/21 Unknown History Active Medications: Generic Name Dose Route Start Last Admin Trade Name Freq PRN Reason Stop Dose Admin Acetaminophen 650 mg 04/23/21 15:26 Acetaminophen 325 Mg Tab PO Q4H PRN Pain MILD(1-3)/Fever >100.5/BROWN Amlodipine Besylate 10 mg 04/24/21 12:00 04/26/21 11:25 Amlodipine 10 Mg Tab PO 10 mg DAILY LYN Administration Aspirin 81 mg 04/24/21 12:00 04/26/21 11:24 Aspirin Ec 81 Mg Tab PO 81 mg DAILY LYN Administration Calcitriol 0.5 mcg 04/25/21 10:00 04/25/21 16:15 Calcitriol 0.5 Mcg Cap PO 0.5 mcg DAILY LYN Administration Dextrose 50 ml 04/23/21 15:26 04/26/21 07:47 Dextrose 50% In Water (25gm) 50 Ml Syringe IV 50 ml Q30MIN PRN Administration Hypoglycemia Protocol Docusate Sodium 100 mg 04/23/21 22:00 04/26/21 11:24 Docusate Sodium 100 Mg Cap PO 100 mg BID LYN Administration Enoxaparin Sodium 80 mg 04/23/21 16:00 04/25/21 16:15 Enoxaparin 80 Mg/0.8 Ml Inj 1 mg/kg (180 mg) 80 mg SUB-Q Administration Q24H LYN Protocol Heparin Sodium (Porcine) 3,000 unit 04/25/21 08:04 Heparin 10,000 Units/10 Ml Vial IV DAMON PRN hemodialysis Sodium Chloride 1,000 mls @ 75 mls/hr 04/23/21 21:45 04/23/21 23:20 Nacl 0.9% 1000 Ml IV 75 mls/hr DIRECT LYN Administration Sodium Chloride 100 mls @ 999 mls/hr 04/24/21 09:32 Nacl 0.9% IV DAMON PRN Hypotension Insulin Glargine 10 units 04/26/21 10:00 04/26/21 11:26 Insulin Glargine 100 Units/Ml SUB-Q Not Given BID LYN Insulin Human Lispro 0 unit 04/24/21 11:30 04/26/21 07:48 Insulin Lispro 100 Unit/Ml SUB-Q Not Given ACHS [facility] Protocol Morphine Sulfate 2 mg 04/23/21 15:26 Morphine 2 Mg/1 Ml Inj IV Q4H PRN Pain, Moderate (4-6) Ondansetron HCl 4 mg 04/23/21 15:26 Ondansetron 4 Mg/2 Ml Inj IV Q8H PRN Nausea And Vomiting Sevelamer Carbonate 1,600 mg 04/24/21 07:30 04/26/21 11:24 Sevelamer Carbonate 800 Mg Tab PO 1,600 mg AC LYN Administration Sodium Chloride 10 ml 04/23/21 22:00 04/26/21 11:25 Sodium Chloride 0.9% 10 Ml Flush Syringe IV 10 ml BID LYN Administration Sodium Chloride 10 ml 04/23/21 16:26 Sodium Chloride 0.9% 10 Ml Flush Syringe IV PRN PRN LINE FLUSH
--- NOTE | 2021-04-26 14:22 | Electrocardiograph Report ---
[facility] Test Date: 2021-04-23 Test Time: 12:42:02 Pat Name: TEJAS MEREDITH Department: Room: A384 Gender: M Conference Translator: ROSI : 1970 Requested By: ROSALINA PERERA Order Number: [id number] Reading MD: Hang Mccall Measurements Intervals [place] Rate: 79 P: 70 [place]: 198 QRS: 37 QRSD: 81 T: 59 QT: 363 QTc: 416 Interpretive Statements Sinus rhythm Poor R wave progress No previous ECG available for comparison Electronically Signed On 04-26-2021 14:22:49 EDT by Hang Mccall
[2021-04-26] MEDS: EPOETIN ALFA-EPBX 10,000 UNIT/1 ML VIAL IV SCH (15:58)
--- NOTE | 2021-04-27 09:57 | Progress Note ---
Assessment and Plan 1. ESRD: CKD has progressed to ESRD. Patient presented with uremic symptoms. Monitor renal function. Reanl prognosis is poor. Avoid nephrotoxic agents. Meds dosage based on GFR. Patient is agreed to start on hemodialysis. Explained the indications, benefits, risks and alternatives involved in hemodialysis. He voiced understanding and gave verbal consent. Hemodialysis: 04/24, 04/25, 04/26. Vein mapping ordered. 2. FEN: Monitor lytes and volume status. 3. N & V: 2/2 uremia. Improved. 4. Nonspecific elevated troponin: In the setting of ESRD. LVEF 55-60% by echo in 2017. Followed by Cards. D/w (04/26), Lovenox stopped. Stress test today. 5. DM: Monitor blood sugar. 6. Hypotension: Initial low BP, improved now. Monitor. 7. Anemia: Likely 2/2 CKD / ESRD. Epogen. Compliance encouraged. Outpatient HD chair at [facility]. Subjective: Patient was seen and examined at the bedside. Doing ok and tolerated HD well. Examination: General appearance: well-developed, appears stated age, no distress HEENT: ATNC, Pupils equal Neck: Trachea midline Respiratory: ctab Cardiology: regular, S1S2, no murmur Gastrointestinal: normoactive bowel sounds, no tenderness, not distended Integumentary: warm and dry, no obvious rash Neurologic: alert, conversing, able to move extremities Ext: no edema noted Hemodialysis access: R IJ tunnel catheter, no e/o any bleeding Subjective Date of service: 04/27/21 Objective - Vital Signs Vital signs: Vital Signs - 12hr 04/26/21 04/27/21 22:00 04:17 Temperature 98.6 F Pulse Rate 76 Respiratory 17 16 Rate Respiratory 17 Rate [denies pain] Blood Pressure 130/81 O2 Sat by Pulse 98 99 Oximetry - Lab 04/24/21 07:16 04/26/21 08:05 Most recent lab results Calcium 9.8 mg/dL (8.4-10.2) 04/26/21 08:05 Phosphorus 7.40 mg/dL (2.5-4.5) H 04/23/21 13:11 Magnesium 2.50 mg/dL (1.7-2.3) H 04/23/21 13:11 Medications & Allergies - Medications Allergies/Adverse Reactions: Allergies No Known Allergies Allergy (Unverified 05/15/16 07:36) Home Medications: Home Medications Medication Instructions Recorded Confirmed Last Taken Type Aspirin [Lo-Dose Aspirin EC] 81 mg PO DAILY 09/02/17 04/24/21 09/01/17 History Insulin Glargine,Hum.rec.anlog 13 units SQ BID 09/02/17 04/24/21 09/01/17 History [Lantus] amLODIPine 10 mg PO DAILY 09/02/17 04/24/21 09/01/17 History Insulin Aspart (Nf) [NovoLOG 100 0 unit SQ AC 12/26/20 04/24/21 Unknown History UNITS/ML VIAL] calcitrioL [Rocaltrol] 1 cap PO DAILY 12/26/20 04/24/21 Unknown History Active Medications: Generic Name Dose Route Start Last Admin Trade Name Freq PRN Reason Stop Dose Admin Acetaminophen 650 mg 04/23/21 15:26 Acetaminophen 325 Mg Tab PO Q4H PRN Pain MILD(1-3)/Fever >100.5/BROWN Amlodipine Besylate 10 mg 04/24/21 12:00 04/26/21 11:25 Amlodipine 10 Mg Tab PO 10 mg DAILY LYN Administration Aspirin 81 mg 04/24/21 12:00 04/26/21 11:24 Aspirin Ec 81 Mg Tab PO 81 mg DAILY LYN Administration Calcitriol 0.5 mcg 04/25/21 10:00 04/26/21 10:00 Calcitriol 0.5 Mcg Cap PO Not Given DAILY LYN Dextrose 50 ml 04/23/21 15:26 04/26/21 07:47 Dextrose 50% In Water (25gm) 50 Ml Syringe IV 50 ml Q30MIN PRN Administration Hypoglycemia Protocol Docusate Sodium 100 mg 04/23/21 22:00 04/26/21 21:46 Docusate Sodium 100 Mg Cap PO 100 mg BID LYN Administration Heparin Sodium (Porcine) 3,000 unit 04/25/21 08:04 Heparin 10,000 Units/10 Ml Vial IV DAMON PRN hemodialysis Sodium Chloride 1,000 mls @ 75 mls/hr 04/23/21 21:45 04/23/21 23:20 Nacl 0.9% 1000 Ml IV 75 mls/hr DIRECT LYN Administration Sodium Chloride 100 mls @ 999 mls/hr 04/24/21 09:32 Nacl 0.9% IV DAMON PRN Hypotension Insulin Glargine 10 units 04/26/21 10:00 04/26/21 21:56 Insulin Glargine 100 Units/Ml SUB-Q Not Given BID [facility] Insulin Human Lispro 0 unit 04/24/21 11:30 04/26/21 21:51 Insulin Lispro 100 Unit/Ml SUB-Q 3 unit ACHS LYN Administration Protocol Morphine Sulfate 2 mg 04/23/21 15:26 Morphine 2 Mg/1 Ml Inj IV Q4H PRN Pain, Moderate (4-6) Ondansetron HCl 4 mg 04/23/21 15:26 Ondansetron 4 Mg/2 Ml Inj IV Q8H PRN Nausea And Vomiting Sevelamer Carbonate 1,600 mg 04/24/21 07:30 04/26/21 18:41 Sevelamer Carbonate 800 Mg Tab PO 1,600 mg AC LYN Administration Sodium Chloride 10 ml 04/23/21 22:00 04/26/21 21:57 Sodium Chloride 0.9% 10 Ml Flush Syringe IV 10 ml BID LYN Administration Sodium Chloride 10 ml 04/23/21 16:26 Sodium Chloride 0.9% 10 Ml Flush Syringe IV PRN PRN LINE FLUSH
[2021-04-27] MEDS ORDERED: REGADENOSON 0.4 MG/5 ML INJ IV ONE ×2 (10:32→10:36)
--- NOTE | 2021-04-27 12:27 | Progress Note ---
Assessment and Plan - Patient Problems (1) Elevated troponin Current Visit: No Status: Acute Plan to address problem: Nonspecific troponin elevation in the setting of acute on chronic renal failure with metabolic acidosis. Patient underwent a Lexiscan thallium stress test, results are pending. Subjective Date of service: 04/27/21 Interval history: Patient has no new cardiac complaints, underwent a Lexiscan thallium stress test today, results are pending. Objective Vital Signs Temp Pulse Resp Resp BP Pulse Ox 04/27/21 04:17 98.6 F 76 16 130/81 99 04/26/21 22:00 17 17 98 04/26/21 21:54 99.1 F 80 20 141/84 99 04/26/21 16:15 98.0 F 74 18 136/87 04/26/21 16:00 74 136/87 04/26/21 15:45 78 131/83 04/26/21 15:30 74 135/84 04/26/21 15:15 75 130/86 04/26/21 15:00 77 125/99 04/26/21 14:45 75 122/85 04/26/21 14:30 81 138/88 04/26/21 14:15 98 H 135/96 04/26/21 14:00 79 135/96 04/26/21 13:45 75 150/91 04/26/21 13:30 98.0 F 78 18 148/91 - Physical Examination General: No Apparent Distress HEENT: Positive: PERRL Neck: Positive: trachea midline Cardiac: Positive: Reg Rate and Rhythm Lungs: Positive: Decreased Breath Sounds Neuro: Positive: Grossly Intact Abdomen: Positive: Soft Skin: Positive: Clear Extremities: Absent: edema
[2021-04-27] MEDS: SEVELAMER CARBONATE 800 MG TAB PO SCH ×3 (12:30→17:15)
[2021-04-27] MEDS: INSULIN LISPRO 100 UNIT/ML SUB-Q SCH ×4 (12:30→21:45)
[2021-04-27] MEDS: DOCUSATE SODIUM 100 MG CAP PO SCH ×2 (12:33→21:44)
[2021-04-27] MEDS: INSULIN GLARGINE 100 UNITS/ML SUB-Q SCH ×3 (12:33→21:44)
[2021-04-27] MEDS: CALCITRIOL 0.5 MCG CAP PO SCH (12:40)
[2021-04-27] MEDS: ASPIRIN EC 81 MG TAB PO SCH (12:40)
[2021-04-27] MEDS: amLODIPine 10 MG TAB PO SCH (12:40)
--- NOTE | 2021-04-27 12:53 | Nuclear Medicine Report ---
APPROVED REPORT Exam: Nuclear Stress Test Indication: Chest pain BMI: 0 Stress Test Details Stress Test: Pharmacologic stress testing performed using 0.4 mg of regadenoson per 5 mL given IV over 10 seconds. HR Resting HR: 75 bpm Max HR Achieved: 97 bpm Max Heart Rate (APMHR): 169 bpm Target HR (85% APMHR): 143 bpm % of APMHR: 57 Recovery HR: 74 bpm HR response to stress: Normal HR response to stress BP Resting BP: 134/70 mmHg Max BP: 152/92 mmHg Recovery BP: 107/70 mmHg BP response to stress: Normal blood pressure response to stress. ECG Resting ECG: Sinus Rhythm Stress ECG: Sinus Rhythm ST Change: None Arrhythmia: None Recovery ECG: Sinus Rhythm Recovery ST Change: None Recovery Arrhythmia: None Clinical Reason for Termination: Completed protocol Stress Symptoms: None Stress ECG Conclusion No chest pain, no ST changes with pharmacologic stress testing, myocardial perfusion images are pending for final test interpretation. NM EXAM: Myocardial Perfusion REST/STRESS Imaging Protocol: Rest Tc-99m/Stress Tc-99m 1 day Resting Data Rest SPECT myocardial perfusion imaging was performed in supine position 45 minutes following the intravenous injection of 10 mCi of Tc-99m Myoview. Time of rest injection: 0700 Pharmacologic Stress Pharmacologic stress test was performed by injecting Regadenoson 0.4 mg IV push followed by the intravenous injection of 28 mCi of Tc-99m Myoview. Time of stress injection: 1047 Gated Stress SPECT was performed 30 minutes after stress injection. The images were gated to evaluate regional wall motion and calculate left ventricular ejection fraction. Study Quality Study: excellent Lung Uptake: Normal Study Data TID = 1.03. Perfusion Wall Motion The rest and stress images show normal left ventricular wall motion. Nuclear Conclusion ECG Findings: negative for ischemia Clinical Findings: negative for ischemia Nuclear Findings: negative for ischemia Left Ventricular Function: normal Risk Study: low The rest and stress perfusion images are normal, there is normal left ventricular systolic function with ejection fraction 69%. Normal myocardial perfusion study. Conclusion No chest pain, no ST changes with pharmacologic stress testing, myocardial perfusion images are pending for final test interpretation.
--- NOTE | 2021-04-27 15:46 | Vascular Lab Report ---
DOPPLER ULTRASOUND UPPER EXTREMITY VENOUS MAPPING, BILATERAL INDICATION / CLINICAL INFORMATION: Hemodialysis access. TECHNIQUE: Grayscale, color and spectral Doppler imaging of the venous system of the right and left upper extrem ities was performed. COMPARISON: None available. FINDINGS: RIGHT UPPER EXTREMITY: Brachial Artery (Diameter, in cm): 0.4 Radial Artery (Diameter, in cm): 0.2 Basilic Vein (Diameter, in cm): - Upper Arm: Not seen - Mid Arm: 0.2 - Lower Arm: 0.11 - Antecubital: 0.11 - Upper Forearm: 0.09 - Mid Forearm: 0.09 - Distal Forearm: 0.06 Cephalic Vein (Diameter, in cm): - Upper Arm: 0.13 - Mid Arm: 0.10 - Lower Arm: 0.10 - Antecubital: 0.11 - Upper Forearm: 0.10 - Mid Forearm: 0.10 - Distal Forearm: 0.08 LEFT UPPER EXTREMITY: Brachial Artery (Diameter, in cm): 0.5 Radial Artery (Diameter, in cm): 0.3 Basilic Vein (Diameter, in cm): - Upper Arm: Not seen - Mid Arm: 0.17 - Lower Arm: 0.15 - Antecubital: 0.09 - Upper Forearm: 0.08 - Mid Forearm: 0.08 - Distal Forearm: 0.05 Cephalic Vein (Diameter, in cm): - Upper Arm: 0.12 - Mid Arm: 0.08 - Lower Arm: 0.08 - Antecubital: 0.17 - Upper Forearm: 0.18 - Mid Forearm: 0.13 - Distal Forearm: 0.10 Additional Findings: Superficial venous thrombosis is noted along in the cephalic vein along the dist al right forearm. IMPRESSION: 1. Upper extremity venous mapping as above. 2. Right cephalic vein thrombosis as above. Signer Name: Danish Ramirez MD Signed: 04/27/2021 3:41 PM Workstation Name: [employer]
--- NOTE | 2021-04-27 18:09 | Progress Note ---
Assessment and Plan (1) ESRD needing dialysis Current Visit: Yes Status: Acute Plan to address problem: Patient end-stage renal disease with BUN of 112 and creatinine 11.1. Patient will require hemodialysis. Will place Vas-Cath with vascular consult. Patient guest services lead is aware and evaluated patient for hemodialysis. At present we will monitor electrolytes and control nausea and vomiting until patient can receive hemodialysis. Supportive care IV fluids were needed Zofran Adequate pain control. DVT prophylaxis (2) Hepatitis C Current Visit: Yes Status: Acute Plan to address problem: Patient noted to have hepatitis C has been obtained in work-up of renal failure and hemodialysis. Suggest treatment as outpatient follow-up GI upon discharge. (3) Hypertension Current Visit: No Status: Acute Qualifiers: Hypertension type: essential hypertension Qualified Code(s): I10 - Essential (primary) hypertension Plan to address problem: We will hold antihypertensives. At this time patient's blood pressure is hypotensive. Has been corrected with IV replacement. Currently hemodynamically stable. Will restart blood pressure medications when patient's is able to tolerate. Was on amlodipine. (4) Insulin dependent diabetes mellitus Current Visit: No Status: Acute Plan to address problem: Most likely noncompliance. Patient states he was not sure if he is on 13 units twice daily or 32 units twice daily. Will initiate 13 units twice daily and titrate up accordingly. Place patient on sliding scale with Accu-Cheks before every meal and nightly. Patient will be on a renal diet and low concentrated sweet diet. (5) Non-ST elevated NH. Type II secondary to acute on chronic renal failure. (6) anemia of chronic disease (7) DVT prophylaxis Current Visit: Yes Status: Acute 04/25/2021 -Patient will have hemodialysis today. Tunneled IJ catheter was placed by vascular yesterday. Nephrology is following. -Type II NSTEMI; cardiology consulted pending evaluation. -Hep C need outpatient evaluation by GI. -Blood pressure is well controlled with amlodipine and continue with that -Blood sugar is uncontrolled and I have increased his Lantus from 13 units twice daily to 15 units twice daily , I added 10 units of AC insulin. We will continue to monitor -Patient need outpatient dialysis arrangement, discussed with guest services lead and he told me he is working on it. - Patient Problems (1) ESRD needing dialysis Current Visit: Yes Status: Acute Plan to address problem: Patient end-stage renal disease with BUN of 112 and creatinine 11.1. Patient will require hemodialysis. Will place Vas-Cath with vascular consult. Patient guest services lead is aware and evaluated patient for hemodialysis. At present we will monitor electrolytes and control nausea and vomiting until patient can receive hemodialysis. Supportive care IV fluids were needed Zofran Adequate pain control. DVT prophylaxis (2) Hepatitis C Current Visit: Yes Status: Acute (3) Hypertension Current Visit: No Status: Acute Qualifiers: Hypertension type: essential hypertension (4) Insulin dependent diabetes mellitus Current Visit: No Status: Acute (5) DVT prophylaxis Current Visit: Yes Status: Acute Subjective Date of service: 04/27/21 Principal diagnosis: Uncontrolled blood sugar Interval history: Patient 50-year-old male with a history of hypertension, hepatitis and diabetes x15 years presents to ED with a chief complaint of generalized weakness dizziness, nausea and vomiting. Patient states he was diagnosed with renal failure approximately 1 year ago and was told he would probably need hemodialysis. His guest services lead has told him within the last month multiple times that he needed to go to the ED to be dialyzed. And initiate dialysis. Patient was hesitant to receive hemodialysis until yesterday when he began having profound nausea and vomiting unable to hold food down and associated dizziness as well. Patient states his generalized weakness and malaise got worse over the past 24 hours and decided to come to the ED. Upon presentation to the ED patient was found to be nauseated generalized weakness malaise associated with acute on chronic renal failure. Renal failure requiring hemodialysis. Renal consult was obtained by Dr. Martinez and plan was put in place for patient to receive hemodialysis. Will require vascular consult for Vas-Cath placement. At present patient nausea improved with antiemetics. Denie s any chest pain shortness of breath no fever chills no nausea vomiting. No history of cough. No exposure to COVID-19. Patient denies any abdominal pain no abdominal bleeding. 04/24: Extensive discussion with the patient today vascular has been consulted for placement of dialysis access. Patient is on full dose anticoagulation awaiting cardiology evaluation which have consulted. If agreed that this is type II and does not need full dose anticoagulation he can be discontinued as patient also does not endorse any chest pain at this time. Will reevaluate lethargy following dialysis and if need be will consult PT OT for further evaluation. Home medication reconciled which will help with blood sugar management with the addition of Lantus 04/27/2021. Patient went down for stress test today. Hospital course complicated by elevated blood sugars greater than 450. Will be addressed by increasing current insulin dose. (1) ESRD needing dialysis Current Visit: Yes Status: Acute Plan to address problem: Patient end-stage renal disease with BUN of 112 and creatinine 11.1. Patient will require hemodialysis. Will place Vas-Cath with vascular consult. Patient guest services lead is aware and evaluated patient for hemodialysis. At present we will monitor electrolytes and control nausea and vomiting until patient can receive hemodialysis. Supportive care IV fluids were needed Zofran Adequate pain control. DVT prophylaxis (2) Hepatitis C Current Visit: Yes Status: Acute Plan to address problem: Patient noted to have hepatitis C has been obtained in work-up of renal failure and hemodialysis. Suggest treatment as outpatient follow-up GI upon discharge. (3) Hypertension Current Visit: No Status: Acute Qualifiers: Hypertension type: essential hypertension Qualified Code(s): I10 - Essential (primary) hypertension Plan to address problem: We will hold antihypertensives. At this time patient's blood pressure is hypotensive. Has been corrected with IV replacement. Currently hemodynamically stable. Will restart blood pressure medications when patient's is able to tolerate. Was on amlodipine. (4) Insulin dependent diabetes mellitus Current Visit: No Status: Acute Plan to address problem: Most likely noncompliance. Patient states he was not sure if he is on 13 units twice daily or 32 units twice daily. Will initiate 13 units twice daily and titrate up accordingly. Place patient on sliding scale with Accu-Cheks before every meal and nightly. Patient will be on a renal diet and low concentrated sweet diet. (5) Non-ST elevated NH. Type II secondary to acute on chronic renal failure. (6) anemia of chronic disease Objective - Constitutional Vitals: Vital Signs - 12hr 04/27/21 04/27/21 04/27/21 09:48 10:38 10:40 Pulse Rate Blood Pressure 134/92 140/91 144/90 O2 Sat by Pulse Oximetry 04/27/21 04/27/21 04/27/21 10:41 10:43 10:46 Pulse Rate Blood Pressure 152/90 136/91 107/70 O2 Sat by Pulse Oximetry 04/27/21 04/27/21 04/27/21 10:47 10:48 11:33 Pulse Rate 94 H Blood Pressure 121/73 123/77 115/79 O2 Sat by Pulse 100 Oximetry 04/27/21 11:35 Pulse Rate 90 Blood Pressure O2 Sat by Pulse 100 Oximetry General appearance: Present: no acute distress, well-nourished - EENT Eyes: PERRL, EOM intact ENT: hearing intact, clear oral mucosa Ears: bilateral: normal - Neck Neck: supple, normal ROM - Respiratory Respiratory effort: normal Respiratory: bilateral: CTA - Breasts Breasts: normal - Cardiovascular Rhythm: regular Heart Sounds: Present: S1 & S2. Absent: gallop, rub Extremities: pulses intact, No edema, normal color, Full ROM - Gastrointestinal General gastrointestinal: Present: soft, non-tender, non-distended, normal bowel sounds - Genitourinary Male genitourinary: normal - Integumentary Integumentary: clear, warm, dry - Musculoskeletal Musculoskeletal: 1, strength equal bilaterally - Neurologic Neurologic: moves all extremities - Psychiatric Psychiatric: memory intact, appropriate mood/affect, intact judgment & insight - Labs CBC & Chem 7: 04/24/21 07:16 04/26/21 08:05 Labs: Abnormal lab results 04/26/21 04/27/21 04/27/21 Range/Units 21:57 07:36 11:34 POC Glucose 228 H 64 L 179 H (70-105) mg/dL 04/27/21 04/27/21 Range/Units 16:38 16:42 POC Glucose > 600 H 545 H (70-105) mg/dL HEART Score - HEART Score Troponin: Troponin T 0.210 ng/mL (0.00-0.029) H* 04/23/21 13:11
[2021-04-28] MEDS: INSULIN GLARGINE 100 UNITS/ML SUB-Q SCH (06:08)
--- NOTE | 2021-04-28 09:06 | Progress Note ---
Assessment and Plan Nonspecific elevated troponin in the setting of renal disease Echocardiogram normal left ventricular systolic function, EF 55-60%. Stress thallium test: normal myocardial perfusion. CKD with progression to ESRD initiated on HD Hypertension No further cardiac workup indicated. Conservative cardiac management. Subjective Date of service: 04/28/21 Principal diagnosis: Uncontrolled blood sugar Interval history: Patient has no complaints. Objective Vital Signs Temp Pulse Resp BP Pulse Ox 04/28/21 04:04 99.2 F 85 16 133/86 99 04/27/21 22:00 16 99 04/27/21 21:10 99.0 F 86 16 136/86 99 04/27/21 11:35 90 100 04/27/21 11:33 94 H 115/79 100 04/27/21 10:48 123/77 04/27/21 10:47 121/73 04/27/21 10:46 107/70 04/27/21 10:43 136/91 04/27/21 10:41 152/90 04/27/21 10:40 144/90 04/27/21 10:38 140/91 04/27/21 09:48 134/92 - Physical Examination General: No Apparent Distress HEENT: Positive: PERRL Neck: Positive: trachea midline Cardiac: Positive: Reg Rate and Rhythm Lungs: Positive: Normal Breath Sounds Neuro: Positive: Grossly Intact Extremities: Absent: edema
[2021-04-28] MEDS: SEVELAMER CARBONATE 800 MG TAB PO SCH ×2 (09:31→11:50)
[2021-04-28] MEDS: CALCITRIOL 0.5 MCG CAP PO SCH (09:31)
[2021-04-28] MEDS: amLODIPine 10 MG TAB PO SCH (09:32)
[2021-04-28] MEDS: DOCUSATE SODIUM 100 MG CAP PO SCH (09:32)
[2021-04-28] MEDS: ASPIRIN EC 81 MG TAB PO SCH (09:32)
[2021-04-28] MEDS: INSULIN LISPRO 100 UNIT/ML SUB-Q SCH ×2 (09:33→11:50)
[2021-04-28] MEDS ORDERED: INSULIN GLARGINE 100 UNITS/ML SUB-Q SCH (10:00)
--- NOTE | 2021-04-28 12:41 | Discharge Summary ---
Providers - Providers Date of Admission: 04/23/21 17:48 Date of discharge: 04/28/21 Attending physician: IRWIN SMITH 04/23/21 Consult to Physician [CONS] Stat Comment: Consulting Provider: JULIET GONZALEZ Physician Instructions: Reason For Exam: esrd 04/24/21 09:30 Consult to Interventional Radiology [CONS] Routine Consulting Provider: JIA ST Reason For Exam: Tunnel hemodialysis catheter Place consult to:: dr. st Notified:: office Phone number called:: [phone] Was contact made?: Yes If yes, spoke with:: gisselle Time called:: 11:33 04/24/21 11:09 Consult to Physician [CONS] Routine Comment: Consulting Provider: FLAUQITA TOMAS Physician Instructions: Reason For Exam: Type 2 nstemi Primary care physician: PETROLOGY TEACHER Hospitalization Condition: Fair Hospital course: Patient 50-year-old male with a history of hypertension, hepatitis and diabetes x15 years presents to ED with a chief complaint of generalized weakness dizziness, nausea and vomiting. Patient states he was diagnosed with renal failure approximately 1 year ago and was told he would probably need hemodialysis. His production assembler has told him within the last month multiple times that he needed to go to the ED to be dialyzed. . Patient states his generalized weakness and malaise got worse over the past 24 hours and decided to come to the ED. work-up patient found to require hemodialysis. Vas-Cath was placed. Patient was dialyzed and felt much better. Hospital course was complicated by inability to find patient a hemodialysis place. Patient then found to hemodialysis placed in [place]. And was discharged in stable condition to continue hemodialysis upon presentation to the ED patient was found to be nauseated generalized weakness malaise associated with acute on chronic renal failure. Renal failure requiring hemodialysis. Patient to continue hemodialysis with 04/27/2021. Patient went down for stress test today. Hospital course complicated by elevated blood sugars greater than 450. Will be addressed by increasing current insulin dose. Disposition: DC-01 TO HOME OR SELFCARE Final Discharge Diagnosis (Prints w/discharge instructions): Acute on chronic renal failure - Discharge Diagnoses (1) ESRD needing dialysis Status: Acute Comment: Patient ruled out for COVID-19 with negative Covid test. (2) Hepatitis C Status: Acute (3) Hypertension Status: Acute Qualifiers: Hypertension type: essential hypertension (4) Insulin dependent diabetes mellitus Status: Acute (5) DVT prophylaxis Status: Acute Core Measure Documentation - Palliative Care Palliative Care/ Comfort Measures: Not Applicable - Core Measures Any of the following diagnoses?: none Exam - Constitutional Vitals: Temp Pulse Resp BP Pulse Ox 99.2 F 85 17 136/87 99 04/28/21 04:04 04/28/21 09:32 04/28/21 10:00 04/28/21 09:32 04/28/21 04:04 General appearance: Present: no acute distress, well-nourished - EENT Eyes: Present: PERRL ENT: hearing intact, clear oral mucosa - Neck Neck: Present: supple, normal ROM - Respiratory Respiratory effort: normal Respiratory: bilateral: CTA - Cardiovascular Heart Sounds: Present: S1 & S2. Absent: rub, click - Extremities Extremities: pulses symmetrical, No edema Peripheral Pulses: within normal limits - Abdominal General gastrointestinal: Present: soft, non-tender, non-distended, normal bowel sounds Male genitourinary: Present: normal - Integumentary Integumentary: Present: clear, warm, dry - Musculoskeletal Musculoskeletal: gait normal, strength equal bilaterally - Psychiatric Psychiatric: appropriate mood/affect, intact judgment & insight - Neurologic Neurologic: CNII-XII intact, moves all extremities Plan Activity: no restrictions Weight Bearing Status: Full Weight Bearing Diet: renal Wound: open to air Special Instructions: restrict fluid intake to (2.o l) Follow up with: PRIMARY CARE, [Primary Care Provider] - 7 Days Prescriptions: amLODIPine 10 mg PO DAILY #30 Docusate Sodium [Colace CAP] 100 mg PO BID #60 capsule Insulin Aspart (Nf) [NovoLOG 100 UNITS/ML VIAL] 0 unit SQ AC #20 units Sevelamer Carbonate [Renvela] 1,600 mg PO AC #30 tablet calcitrioL [Rocaltrol] 1 cap PO DAILY #30 cap
--- NOTE | 2021-04-28 13:19 | Progress Note ---
Assessment and Plan 1. ESRD: CKD has progressed to ESRD. Patient presented with uremic symptoms. Monitor renal function. Reanl prognosis is poor. Avoid nephrotoxic agents. Meds dosage based on GFR. Patient is agreed to start on hemodialysis. Explained the indications, benefits, risks and alternatives involved in hemodialysis. He voiced understanding and gave verbal consent. Hemodialysis: 04/24, 04/25, 04/26. Vein mapping done. 2. FEN: Monitor lytes and volume status. 3. N & V: 2/2 uremia. Improved. 4. Nonspecific elevated troponin: In the setting of ESRD. LVEF 55-60% by echo in 2017. Normal stress test. Followed by Cards. 5. DM: Monitor blood sugar. 6. Hypotension: Initial low BP, improved now. Monitor. 7. Anemia: Likely 2/2 CKD / ESRD. Epogen. Compliance encouraged. Outpatient HD chair at [facility]. Subjective: Patient was seen and examined at the bedside. Doing ok. Examination: General appearance: well-developed, appears stated age, no distress HEENT: ATNC, Pupils equal Neck: Trachea midline Respiratory: ctab Cardiology: regular, S1S2, no murmur Gastrointestinal: normoactive bowel sounds, no tenderness, not distended Integumentary: warm and dry, no obvious rash Neurologic: alert, conversing, able to move extremities Ext: no edema noted Hemodialysis access: R IJ tunnel catheter Subjective Date of service: 04/28/21 Principal diagnosis: Uncontrolled blood sugar Objective - Vital Signs Vital signs: Vital Signs - 12hr 04/28/21 04/28/21 04/28/21 04:04 09:32 10:00 Temperature 99.2 F Pulse Rate 85 85 Respiratory 16 Rate Respiratory 17 Rate [denies pain] Blood Pressure 133/86 136/87 O2 Sat by Pulse 99 Oximetry - Lab 04/24/21 07:16 04/26/21 08:05 Most recent lab results Calcium 9.8 mg/dL (8.4-10.2) 04/26/21 08:05 Phosphorus 7.40 mg/dL (2.5-4.5) H 04/23/21 13:11 Magnesium 2.50 mg/dL (1.7-2.3) H 04/23/21 13:11 Medications & Allergies - Medications Allergies/Adverse Reactions: Allergies No Known Allergies Allergy (Unverified 05/15/16 07:36) Home Medications: Home Medications Medication Instructions Recorded Confirmed Last Taken Type Aspirin [Lo-Dose Aspirin EC] 81 mg PO DAILY 09/02/17 04/24/21 09/01/17 History Insulin Glargine,Hum.rec.anlog 13 units SQ BID 09/02/17 04/24/21 09/01/17 History [Lantus] Acetaminophen [Acetaminophen TAB] 650 mg PO Q4H PRN tablet 04/28/21 Unknown Rx Docusate Sodium [Colace CAP] 100 mg PO BID #60 capsule 04/28/21 Unknown Rx Epoetin Eyad-Epbx 10,000 Unit 10,000 unit IV DAMON vial 04/28/21 Unknown Rx [Retacrit] Insulin Aspart (Nf) [NovoLOG 100 0 unit SQ AC #20 units 04/28/21 Unknown Rx UNITS/ML VIAL] Lispro Insulin [HumaLOG] 0 unit SUB-Q ACHS units 04/28/21 Unknown Rx Sevelamer Carbonate [Renvela] 1,600 mg PO AC #30 tablet 04/28/21 Unknown Rx amLODIPine 10 mg PO DAILY #30 04/28/21 Unknown Rx calcitrioL [Rocaltrol] 1 cap PO DAILY #30 cap 04/28/21 Unknown Rx Active Medications: Generic Name Dose Route Start Last Admin Trade Name Freq PRN Reason Stop Dose Admin Acetaminophen 650 mg 04/23/21 15:26 Acetaminophen 325 Mg Tab PO Q4H PRN Pain MILD(1-3)/Fever >100.5/BROWN Amlodipine Besylate 10 mg 04/24/21 12:00 04/28/21 09:32 Amlodipine 10 Mg Tab PO 10 mg DAILY LYN Administration Aspirin 81 mg 04/24/21 12:00 04/28/21 09:32 Aspirin Ec 81 Mg Tab PO 81 mg DAILY LYN Administration Calcitriol 0.5 mcg 04/25/21 10:00 04/28/21 09:31 Calcitriol 0.5 Mcg Cap PO 0.5 mcg DAILY LYN Administration Dextrose 50 ml 04/23/21 15:26 04/26/21 07:47 Dextrose 50% In Water (25gm) 50 Ml Syringe IV 50 ml Q30MIN PRN Administration Hypoglycemia Protocol Docusate Sodium 100 mg 04/23/21 22:00 04/28/21 09:32 Docusate Sodium 100 Mg Cap PO 100 mg BID LYN Administration Heparin Sodium (Porcine) 3,000 unit 04/25/21 08:04 Heparin 10,000 Units/10 Ml Vial IV DAMON PRN hemodialysis Sodium Chloride 100 mls @ 999 mls/hr 04/24/21 09:32 Nacl 0.9% IV DAMON PRN Hypotension Insulin Glargine 18 units 04/28/21 10:00 04/28/21 10:49 Insulin Glargine 100 Units/Ml SUB-Q 18 units BID LYN Administration Insulin Human Lispro 0 unit 04/24/21 11:30 04/28/21 11:50 Insulin Lispro 100 Unit/Ml SUB-Q 6 unit ACHS LYN Administration Protocol Morphine Sulfate 2 mg 04/23/21 15:26 Morphine 2 Mg/1 Ml Inj IV Q4H PRN Pain, Moderate (4-6) Ondansetron HCl 4 mg 04/23/21 15:26 Ondansetron 4 Mg/2 Ml Inj IV Q8H PRN Nausea And Vomiting Sevelamer Carbonate 1,600 mg 04/24/21 07:30 04/28/21 11:50 Sevelamer Carbonate 800 Mg Tab PO 1,600 mg AC LYN Administration Sodium Chloride 10 ml 04/23/21 22:00 04/28/21 09:33 Sodium Chloride 0.9% 10 Ml Flush Syringe IV 10 ml BID LYN Administration Sodium Chloride 10 ml 04/23/21 16:26 Sodium Chloride 0.9% 10 Ml Flush Syringe IV PRN PRN LINE FLUSH
[2021-04-28] MEDS: EPOETIN ALFA-EPBX 10,000 UNIT/1 ML VIAL IV SCH (14:14)
[2021-04-28 17:15] VITALS: BP 111/68
== END 2021-04-28 17:50 | disposition home or self-care (01) | DRG 673 ==
LOC: ED 12:30 → 3A 17:48
PROVIDERS: ADMIT Internal Medicine; ATTEND Internal Medicine
PROC: 0JH63XZ Insertion of Tunneled Vascular Access Device into Chest Subcutaneous Tissue and Fascia, Percutaneous Approach (ICD-10-PCS; principal; 2021-04-24)
PROC: 02H633Z Insertion of Infusion Device into Right Atrium, Percutaneous Approach (ICD-10-PCS; 2021-04-24)
PROC: B543ZZA Ultrasonography of Right Jugular Veins, Guidance (ICD-10-PCS; 2021-04-24)
PROC: B5181ZA Fluoroscopy of Superior Vena Cava using Low Osmolar Contrast, Guidance (ICD-10-PCS; 2021-04-24)
PROC: 5A1D70Z Performance of Urinary Filtration, Intermittent, Less than 6 Hours Per Day (ICD-10-PCS; 2021-04-24)
PROC: 5A1D70Z Performance of Urinary Filtration, Intermittent, Less than 6 Hours Per Day (ICD-10-PCS; 2021-04-25)
PROC: 5A1D70Z Performance of Urinary Filtration, Intermittent, Less than 6 Hours Per Day (ICD-10-PCS; 2021-04-26)
PROC: 5A1D70Z Performance of Urinary Filtration, Intermittent, Less than 6 Hours Per Day (ICD-10-PCS; 2021-04-28)
DX: N17.9 Acute kidney failure, unspecified (principal); I21.A1 Myocardial infarction type 2; N18.6 End stage renal disease; I12.0 Hypertensive chronic kidney disease with stage 5 chronic kidney disease or end stage renal disease; B19.20 Unspecified viral hepatitis C without hepatic coma; E11.22 Type 2 diabetes mellitus with diabetic chronic kidney disease; I95.9 Hypotension, unspecified; D63.1 Anemia in chronic kidney disease; Z20.822 Contact with and (suspected) exposure to COVID-19; Z79.4 Long term (current) use of insulin; Z79.82 Long term (current) use of aspirin; Z79.899 Other long term (current) drug therapy; Z86.73 Personal history of transient ischemic attack (TIA), and cerebral infarction without residual deficits
CPT/HCPCS: 36415; 36558; 71045; 77001; 78452; 80048; 80053; 80061; 80074; 82140; 82550; 82962; 83735; 84100; 84443; 84484; 85014; 85018; 85025; 85610; 87116; 93005; 93017; 93306; 93970; 96361; 96374; G0378; A9502; C1750; J0690; J0885; J1200; J1644; J1650; J1815; J2250; J2270; J2405; J2785; J3010; J7030; J7050; J7120; U0003

== ENCOUNTER 2021-06-06 10:32 | Emergency (ER) | payer MEDICAID ==
[2021-06-06 11:32] VITALS: BP 120/79
--- NOTE | 2021-06-06 12:24 | Emergency Department Report ---
Blank Doc - Documentation Documentation: As per EMS, patient had hypoglycemia at 26 and was given D5W in route. Patient stated has some dizziness and weakness. 1- This is a initial triage assessment/medical screening only. Full assessment and work-up will be completed once the patient is in proper hospital gown, ED b ed and in a private room setting. This initial assessment/diagnostic orders/clinical plan/ treatment(s) is/are subject to change based on pt's health status, clinical progression and re-assessment by fellow clinical providers in the ED. Further treatment and workup at subsequent clinical providers discretion. Patient/guardians urged not to elope from ED as their condition may be serious if not clinically assessed and managed. 2-labs
[2021-06-06 12:58] LABS: Basophils # (Auto) 0.1 K/mm3 (0.0-0.1); Basophils % (Auto) 1.3 % (0.0-1.8); Eosinophils # (Auto) 0.1 K/mm3 (0.0-0.4); Eosinophils % (Auto) 0.7 % (0.0-4.3); Hematocrit 36.1 % (35.5-45.6); Hemoglobin 11.8 gm/dl (11.8-15.2); Lymphocytes # (Auto) 1.3 K/mm3 (1.2-5.4); Lymphocytes % (Auto) 13.4 % (13.4-35.0); Mean Corpuscular HGB Conc 33 % (32-34); Mean Corpuscular Volume 89 fl (84-94); Monocytes # (Auto) 0.6 K/mm3 (0.0-0.8); Monocytes % (Auto) 6.4 % (0.0-7.3); Platelet Count 216 K/mm3 (140-440); Red Blood Count 4.04 M/mm3 (3.65-5.03); Red Cell Distribution Width 18.2 % (13.2-15.2)
[2021-06-06 13:21] LABS: Albumin 4.1 g/dL (3.9-5); Calcium 9.9 mg/dL (8.4-10.2)
[2021-06-06 13:35] LABS: Chol/HDL Ratio 1.91 %
== END 2021-06-07 12:00 | disposition left against medical advice (07) ==
LOC: ED 10:32
DX: E16.2 Hypoglycemia, unspecified (principal); Z53.21 Procedure and treatment not carried out due to patient leaving prior to being seen by health care provider
CPT/HCPCS: 36415; 80053; 80061; 80320; 82962; 84484; 85025; G0480

== ENCOUNTER 2021-08-29 06:22 | Day surgery (SDC) | payer MEDICAID ==
[~2021-08-29 06:22] MED LIST: ceFAZolin/STERILE WATER 2 GM/20 ML SYRINGE IV NR
[2021-08-29] MEDS ORDERED: SODIUM CHLORIDE 0.9% 1000 ML 0 ML ONE (06:48)
[2021-08-29] MEDS ORDERED: BUPIVACAINE/PF (0.5%) 5 MG/1 ML 30 ML VIAL INFILTRATI ONE (07:05)
[2021-08-29] MEDS ORDERED: SODIUM CHLORIDE P/F VIAL 10 ML 0 ML ONE (07:05)
[2021-08-29] MEDS ORDERED: HEPARIN 10,000 UNITS/10 ML VIAL ONE (07:05)
[2021-08-29] MEDS ORDERED: LIDOCAINE (1%) 10 MG/1 ML VIAL 20 ML MDV ONE (07:05)
[2021-08-29] MEDS ORDERED: rifAMPin 600 MG VIAL ONE (07:05)
[2021-08-29] MEDS ORDERED: SODIUM CHLORIDE 0.9% 500 ML 0 ML ONE (07:06)
[2021-08-29 07:12] LABS: Hematocrit 39.1 % (35.5-45.6); Hemoglobin 12.7 gm/dl (11.8-15.2); Mean Corpuscular HGB Conc 32 % (32-34); Mean Corpuscular Volume 92 fl (84-94); Platelet Count 141 K/mm3 (140-440); Red Blood Count 4.26 M/mm3 (3.65-5.03); Red Cell Distribution Width 16.2 % (13.2-15.2)
[2021-08-29] MEDS ORDERED: propofoL 200 MG/20 ML VIAL IV ONE (07:15)
[2021-08-29 07:23] LABS: Calcium 9.6 mg/dL (8.4-10.2)
--- NOTE | 2021-08-29 07:40 | Event Note ---
Date: 08/29/21 Patient in preop and FBS is 742. Patient states sugar was low and he ate cake. We will send him to ED for further management and reschedule surgery
[2021-08-29 10:30] VITALS: BP 150/97
== END 2021-08-29 06:23 | disposition home or self-care (01) ==
LOC: OR 06:22
PROVIDERS: ATTEND Surgery Vascular Surgery
DX: N18.6 End stage renal disease (principal); Z87.891 Personal history of nicotine dependence; Z79.899 Other long term (current) drug therapy; Z53.8 Procedure and treatment not carried out for other reasons
CPT/HCPCS: 36415; 80048; 82962; 85027; J0690; J1644; J2704; J3490; J7030; J7040

== ENCOUNTER 2021-09-05 06:11 | Day surgery (SDC) | payer MEDICAID ==
[~2021-09-05 06:11] MED LIST changes: +MIDAZOLAM 2 MG/2 ML INJ IV NR; +SODIUM CHLORIDE 0.9% 1000 ML 1,000 ML IV SCH; +fentaNYL 100 MCG/2 ML INJ IV PRN
[2021-09-05] MEDS ORDERED: HEPARIN 10,000 UNITS/10 ML VIAL ONE (07:40)
[2021-09-05] MEDS ORDERED: BUPIVACAINE/PF (0.5%) 5 MG/1 ML 30 ML VIAL INFILTRATI ONE ×2 (07:40→08:11)
[2021-09-05] MEDS ORDERED: SODIUM CHLORIDE 0.9% 250ML 250 ML ONE (07:41)
[2021-09-05] MEDS ORDERED: rifAMPin 600 MG VIAL ONE (07:41)
[2021-09-05] MEDS ORDERED: SODIUM CHLORIDE 0.9% 500 ML 500 ML ONE (07:41)
--- NOTE | 2021-09-05 08:07 | Anesthesia Consultation ---
<NICOLE VIGIL - Last Filed: 09/05/21 08:07> Anesthesia Consult and Med Hx Date of service: 09/05/21 - Airway Anesthetic Teeth Evaluation: Good ROM Head & Neck: Adequate Mental/Hyoid Distance: Adequate Mallampati Class: Class II Intubation Access Assessment: Good - Pulmonary Exam CTA: Yes - Cardiac Exam Cardiac Exam: RRR - Pre-Operative Health Status ASA Pre-Surgery Classification: ASA3 Proposed Anesthetic Plan: Local, MAC - Pulmonary Hx Smoking: Yes (STOPPED SMOKING CIGS 5 YEARS AGO) Hx Asthma: No COPD: No Hx Pneumonia: No - Cardiovascular System Hx Hypertension: Yes - Central Nervous System Hx Seizures: Yes (6 MONTHS AGO. 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 Last HD 09/04/21.
--- NOTE | 2021-09-05 08:08 | Anesthesia Day of Surgery ---
Anesthesia Day of Surgery - Day of Surgery Patient Examined: Yes Patient H&P Reviewed: Yes Patient is NPO: Yes
[2021-09-05] MEDS ORDERED: LIDOCAINE (2%) 20 MG/1 ML VIAL 20 ML MDV INFILTRATI ONE (08:12)
[2021-09-05 08:13] LABS: Hemoglobin 12.6 gm/dl (11.8-15.2); Mean Corpuscular HGB Conc 33 % (32-34); Mean Corpuscular Volume 91 fl (84-94); Platelet Count 166 K/mm3 (140-440); Red Blood Count 4.18 M/mm3 (3.65-5.03); Red Cell Distribution Width 16.4 % (13.2-15.2)
[2021-09-05] MEDS ORDERED: HEPARIN 10,000 UNIT/1 ML VIAL IV NR (08:25)
[2021-09-05 09:00] LABS: Calcium 9.1 mg/dL (8.4-10.2)
[2021-09-05] MEDS ORDERED: HEPARIN 10,000 UNITS/10 ML VIAL IR ONE (10:02)
[2021-09-05] MEDS ORDERED: SODIUM CHLORIDE 0.9% 500 ML IVPB IRRIGATION ONE (10:02)
[2021-09-05] MEDS ORDERED: SODIUM CHLORIDE 0.9% 250 ML IVPB IR ONE (10:03)
[2021-09-05] MEDS ORDERED: rifAMPin 600 MG VIAL IV ONE (10:04)
[2021-09-05] MEDS ORDERED: SODIUM CHLORIDE 0.9% IRR 1,500 ML BOTTLE IR ONE (10:05)
--- NOTE | 2021-09-05 11:14 | Short Stay Summary ---
Short Stay Documentation Date of service: 09/05/21 Narrative H&P: See H&P - History H&P: obtained from office - Allergies and Medications Current Medications: Allergies No Known Allergies Allergy (Verified 08/31/21 12:59) Home Medications Medication Instructions Recorded Confirmed Last Taken Type Aspirin [Lo-Dose Aspirin EC] 81 mg PO DAILY 09/02/17 08/31/21 08/28/21 09:00 History Insulin Glargine,Hum.rec.anlog 32 units SQ BID 09/02/17 08/31/21 08/28/21 17:00 History [Lantus] Epoetin Eyad-Epbx 10,000 Unit 10,000 unit IV DAMON vial 04/28/21 08/31/21 Unknown Rx [Retacrit] Lispro Insulin [HumaLOG] 0 unit SUB-Q ACHS units 04/28/21 08/31/21 08/28/21 20:00 Rx amLODIPine 10 mg PO DAILY #30 04/28/21 08/31/21 08/28/21 09:00 Rx calcitrioL [Rocaltrol] 1 cap PO DAILY #30 cap 04/28/21 08/31/21 08/28/21 09:00 Rx AtorvaSTATin [Lipitor] 40 mg PO QHS 08/31/21 08/31/21 Unknown History Furosemide [Lasix] 40 mg PO DAILY 08/31/21 08/31/21 Unknown History Tamsulosin [Flomax] 0.4 mg PO DAILY 08/31/21 08/31/21 Unknown History Active Medications Cefazolin Sodium (Cefazolin/Sterile Water 2 Gm/20 Ml Syringe) 2 gm IV PREOP NR Stop: 09/05/21 21:00 Fentanyl (Fentanyl 100 Mcg/2 Ml Inj) 100 mcg IV ONCE PRN PRN Reason: sedation for nerve block Last Admin: 09/05/21 09:04 Dose: 100 mcg Documented by: Sodium Chloride (Nacl 0.9% 1000 Ml) 1,000 mls @ 42 mls/hr IV DIRECT LYN Stop: 09/05/21 23:59 Last Admin: 09/05/21 08:00 Dose: 42 mls/hr Documented by: Midazolam HCl (Midazolam 2 Mg/2 Ml Inj) 2 mg IV PREOP NR Stop: 09/05/21 23:59 Last Admin: 09/05/21 09:04 Dose: 2 mg Documented by: - Brief post op/procedure progress note Date of procedure: 09/05/21 Pre-op diagnosis: End-Stage Renal Disease Post-op diagnosis: same Procedure: Creation of Right Brachial Artery to Right Axillary Vein Arteriovenous Graft with 6 mm Bovine Artegraft Anesthesia: MAC, regional Surgeon: IRWIN MASON Estimated blood loss: minimal Pathology: none Condition: stable - Disposition Condition at discharge: Good Disposition: 01 HOME / SELF CARE / HOMELESS Short Stay Discharge Plan Activity: other (No heavy lifting with right arm for 2 weeks.) Wound: open to air, keep clean and dry, other (Okay to wash the right arm wounds with soap and water but do not soak in water for 2 weeks.) Follow up with: IRWIN MASON MD [Staff Physician] - 14 Days Prescriptions: HYDROcodone/APAP 7.5-325 [[place] 7.5/325] 1 each PO Q6HR PRN #30 tablet PRN Reason: Pain
--- NOTE | 2021-09-05 11:16 | Operative Report ---
Operative Report Operative Report: Date of procedure: 09/05/2021 Pre-operative diagnosis: End-Stage Renal Disease Post-operative diagnosis: Same Procedure(s): 1. Creation of Right brachial Artery to Axillary Vein AV Graft with 6 mm Bovine Graft Artergraft Surgeon: Gilles Tellez MD Ditch Cleaner: None Anesthesia: Regional/MAC EBL: Minimal Counts: Correct Complications: None Condition: Stable Findings: Successful Creation of Right arm AV Graft with Palpable Thrill and Palpable Radial Pulse at the Completion of the Case. Specimen: None Indication: The patient is a 50-year-old male with history of end-stage renal disease who is currently on hemodialysis through a right internal jugular permacath. He is in need of long-term dialysis access however he does not have adequate vein for creation of an arteriovenous fistula so he requires creation of an arteriovenous graft. He was given the risk, benefits, and alternative procedures and consented to the procedure. Description of Procedure: Prior to being transported to the operating room the patient had a regional block of the right arm performed. After the block was performed the patient was transported to the operating room and adequately sedated. The patient's right arm was then prepped and draped in normal sterile fashion. A longitudinal incision was made on the medial aspect of the arm just proximal to the antecubital crease and carried down to the brachial artery using sharp dissection. The brachial artery was dissected out circumferentially both proximally and distally and controlled with vessel loops. A second incision was created in longitudinal fashion on the medial aspect of the arm just distal to the axillary crease and carried down to the axillary vein using sharp dissection. Axillary vein was dissected out circumferentially and controlled with a vessel loop. I then used a Sujata-Wick tunneler to tunnel from the brachial artery incision to the axillary vein incision and then pulled an 6 mm bovine through the tunnel. I infused with heparinized saline to ensure that it was not twisted or kinked. I put the brachial artery vessel loops on tension controlling the flow and then created an arteriotomy using an 11 blade and Burleson scissors. I beveled the graft and created an end-to-side anastomosis using 6-0 Prolene running fashion. I clamped the graft just proximal to the anastomosis and then released the vessel loops restoring flow in the brachial artery. I placed quick clot in incision to achieve hemostasis. I cut the proximal end of the graft to the appropriate length and beveled the graft in preparation for a venous anastomosis. I controlled the axillary vein a Satinsky clamp and created a venotomy using an 11 blade and Burleson scissors. I created an end to side anastomosis using a 6-0 Prolene in running fashion. Prior to completing the anastomosis I flushed the graft to ensure there was no thrombus and then comple saud the anastamosis. I released all clamps allowing flow into the AV graft which had an excellent thrill. I packed the wound with quick clot to achieve hemostasis. I closed both wounds in 2 layers using 3-0 Vicryl in running fashion in the deep dermal layer and 4-0 Monocryl in running fashion the subcuticular layer. I dressed both wounds with Dermabond. The patient tolerated the procedure well all sponge, needle, and instrument counts were correct. The patient was taken to recovery in stable condition.
[2021-09-05] MEDS ORDERED: INSULIN REGULAR, HUMAN 100 UNITS/1 ML ONE (11:24)
[2021-09-05] MEDS ORDERED: HEPARIN 10,000 UNIT/1 ML VIAL IV PRN (11:28)
[2021-09-05] MEDS ORDERED: INSULIN REGULAR, HUMAN 100 UNITS/1 ML IV ONE (12:00)
[2021-09-05 12:47] VITALS: BP 105/62
--- NOTE | 2021-09-05 13:17 | Post Anesthesia Evaluation ---
- Post Anesthesia Evaluation Patient Participated: Yes Airway Patent: Yes Stable Respiratory Function: Yes Nausea/Vomiting: No Temp > 96.8F: Yes Pain Manageable: Yes Adequeate Hydration: Yes Anesthesia Complications: No Other Comments: Sling applied to operative arm 2/2 regional block.
== END 2021-09-05 06:12 | disposition home or self-care (01) ==
LOC: OR 06:11
PROVIDERS: ATTEND Surgery Vascular Surgery
DX: I12.0 Hypertensive chronic kidney disease with stage 5 chronic kidney disease or end stage renal disease (principal); N18.6 End stage renal disease; E78.00 Pure hypercholesterolemia, unspecified; M10.9 Gout, unspecified; E87.5 Hyperkalemia; E11.22 Type 2 diabetes mellitus with diabetic chronic kidney disease; G93.41 Metabolic encephalopathy; Z87.891 Personal history of nicotine dependence; Z79.82 Long term (current) use of aspirin; Z79.84 Long term (current) use of oral hypoglycemic drugs; Z79.899 Other long term (current) drug therapy; Z98.890 Other specified postprocedural states
CPT/HCPCS: 36415; 36830; 80048; 82962; 85027; C1768; J0690; J1644; J2250; J3010; J3490; J7030; J7040; J7050; 64450; 64488; J1815

== ENCOUNTER 2022-01-28 08:12 | Emergency (ER) | payer MEDICAID ==
[2022-01-28] MEDS ORDERED: DEXTROSE 50% IN WATER (25GM) 50 ML SYRINGE IV ONE (08:24)
[2022-01-28 08:56] LABS: Basophils # (Auto) 0.1 K/mm3 (0.0-0.1); Eosinophils # (Auto) 0.1 K/mm3 (0.0-0.4); Eosinophils % (Auto) 1.3 % (0.0-4.3); Hemoglobin 14.3 gm/dl (11.8-15.2); Lymphocytes # (Auto) 1.4 K/mm3 (1.2-5.4); Lymphocytes % (Auto) 16.7 % (13.4-35.0); Mean Corpuscular HGB Conc 32 % (32-34); Mean Corpuscular Volume 99 fl (84-94); Monocytes # (Auto) 0.6 K/mm3 (0.0-0.8); Monocytes % (Auto) 7.5 % (0.0-7.3); Platelet Count 154 K/mm3 (140-440); Red Blood Count 4.46 M/mm3 (3.65-5.03); Red Cell Distribution Width 14.9 % (13.2-15.2)
[2022-01-28 09:12] LABS: Calcium 9.7 mg/dL (8.4-10.2)
--- NOTE | 2022-01-28 09:20 | Emergency Department Report ---
ED Altered Mental Status HPI - General Chief Complaint: Hypoglycemia Stated Complaint: FALL/HYPOGLYCEMIA Time Seen by Provider: 01/28/22 08:21 Source: EMS Mode of arrival: Stretcher Limitations: Altered Mental Status - History of Present Illness Initial Comments: 51-year-old male with a past medical history of diabetes and end-stage renal disease with dialysis Saturday, Saturday, and Saturday presents to the hospital with altered mental status secondary to hypoglycemia. Patient is staying at a nearby motel. found him on the ground and altered. Accu-Chek upon EMS BLS unit arrival was 56. No intervention performed. Upon ED arrival Accu-Chek 17. Stat IV access obtained and patient received 1 amp of D50 with gradual improvement in mental status. Shortly after receiving D50 patient is alert, oriented x3. States that he last took his insulin last night prior to dinner and suspects his glucose was low because he overslept and has not had anything to eat this morning. He states he typically wakes up very early. No pain or fever reported. Patient has been compliant with dialysis - Related Data Home Medications Medication Instructions Recorded Confirmed Last Taken Aspirin [Lo-Dose Aspirin EC] 81 mg PO DAILY 09/02/17 01/28/22 01/27/22 Insulin Glargine,Hum.rec.anlog 32 units SQ BID 09/02/17 01/28/22 01/27/22 [Lantus] NovoLOG 100 UNITS/ML VIAL See Protocol SQ AC PRN 05/04/18 01/28/22 Unknown amLODIPine 10 units SQ DAILY 05/04/18 05/04/18 Unknown AtorvaSTATin [Lipitor] 40 mg PO QHS 08/31/21 01/28/22 01/27/22 amLODIPine 5 mg PO DAILY 01/28/22 01/28/22 01/27/22 Previous Rx's Medication Instructions Recorded Last Taken Type Epoetin Eyad-Epbx 10,000 Unit 10,000 unit IV DAMON vial 04/28/21 01/26/22 Rx [Retacrit] calcitrioL [Rocaltrol] 1 cap PO DAILY #30 cap 04/28/21 01/27/22 Rx Allergies Allergy/AdvReac Type Severity Reaction Status Date / Time No Known Allergies Allergy Verified 09/12/21 09:54 ED Review of Systems ROS: Stated complaint: FALL/HYPOGLYCEMIA Other details as noted in HPI Comment: All other systems reviewed and negative ED Past Medical Hx - Past Medical History Hx Hypertension: Yes Hx CVA: Yes Hx Heart Attack/AMI: No Hx Congestive Heart Failure: No Hx Diabetes: Yes Hx Deep Vein Thrombosis: Yes Hx Pulmonary Embolism: No Hx Renal Disease: Yes (ESRD MWF HD) Hx Headaches / Migraines: No Hx Seizures: Yes Hx Asthma: No Hx COPD: No Hx Tuberculosis: No Hx Dementia: No Hx HIV: No Additional medical history: Vascath Right Chest Wall - Surgical History Hx Coronary Stent: No Hx Pacemaker: No Hx Internal Defibrillator: No Additional Surgical History: Dialysis shunt - Social History Smoking Status: Never Smoker - Medications Home Medications: Home Medications Medication Instructions Recorded Confirmed Last Taken Type Aspirin [Lo-Dose Aspirin EC] 81 mg PO DAILY 09/02/17 01/28/22 01/27/22 History Insulin Glargine,Hum.rec.anlog 32 units SQ BID 09/02/17 01/28/22 01/27/22 History [Lantus] NovoLOG 100 UNITS/ML VIAL See Protocol SQ AC PRN 05/04/18 01/28/22 Unknown History amLODIPine 10 units SQ DAILY 05/04/18 05/04/18 Unknown History Epoetin Eyad-Epbx 10,000 Unit 10,000 unit IV DAMON vial 04/28/21 01/28/22 01/26/22 Rx [Retacrit] calcitrioL [Rocaltrol] 1 cap PO DAILY #30 cap 04/28/21 01/28/22 01/27/22 Rx AtorvaSTATin [Lipitor] 40 mg PO QHS 08/31/21 01/28/22 01/27/22 History amLODIPine 5 mg PO DAILY 01/28/22 01/28/22 01/27/22 History ED Physical Exam - General Limitations: Altered Mental Status - Other Other exam information: General: No acute distress Head: Atraumatic Eyes: normal appearance ENT: Moist mucous membranes Neck: C-collar removed due to increased oral secretions. Once patient was alert he did not have midline tenderness Chest: Clear to auscultation bilaterally, right chest wall dialysis cath CV: Regular rate and rhythm Abdomen: Soft, normal bowel sounds, nontender, nondistended, no rebound or guarding Back: Normal inspection Extremity: Normal inspection, full range of motion right upper arm AV access thrill noted Neuro: Initially lethargic shortly after IV D50 pt became alert O x 3, no facial asymmetry, speech clear, no gross motor sensory deficit Psych: Appropriate behavior Skin: No rash ED Course Vital Signs 01/28/22 01/28/22 01/28/22 08:24 08:30 08:46 Pulse Rate 77 75 83 Respiratory 16 14 15 Rate Blood Pressure 148/92 O2 Sat by Pulse 100 99 90 Oximetry 01/28/22 01/28/22 01/28/22 09:19 09:26 09:31 Pulse Rate 76 79 80 Respiratory 11 L 19 12 Rate Blood Pressure 145/91 O2 Sat by Pulse 100 99 100 Oximetry 01/28/22 01/28/22 01/28/22 09:45 10:01 10:15 Pulse Rate 80 79 79 Respiratory 12 16 12 Rate Blood Pressure 148/92 135/91 135/91 O2 Sat by Pulse 100 99 98 Oximetry 01/28/22 10:31 Pulse Rate 89 Respiratory 21 Rate Blood Pressure 135/91 O2 Sat by Pulse 100 Oximetry - Lab Data Result diagrams: 01/28/22 08:40 01/28/22 08:40 Lab Results 01/28/22 01/28/22 01/28/22 Range/Units 08:18 08:34 08:40 WBC 8.4 (4.5-11.0) K/mm3 RBC 4.46 (3.65-5.03) M/mm3 Hgb 14.3 (11.8-15.2) gm/dl Hct 44.0 (35.5-45.6) % MCV 99 H (84-94) fl MCH 32 (28-32) pg MCHC 32 (32-34) % RDW 14.9 (13.2-15.2) % Plt Count 154 (140-440) K/mm3 Lymph % (Auto) 16.7 (13.4-35.0) % [place] % (Auto) 7.5 H (0.0-7.3) % Eos % (Auto) 1.3 (0.0-4.3) % Baso % (Auto) 1.0 (0.0-1.8) % Lymph # (Auto) 1.4 (1.2-5.4) K/mm3 [place] # (Auto) 0.6 (0.0-0.8) K/mm3 Eos # (Auto) 0.1 (0.0-0.4) K/mm3 Baso # (Auto) 0.1 (0.0-0.1) K/mm3 Seg Neutrophils % 73.5 H (40.0-70.0) % Seg Neutrophils # 6.2 (1.8-7.7) K/mm3 Sodium (137-145) mmol/L Potassium (3.6-5.0) mmol/L Chloride (98-107) mmol/L Carbon Dioxide (22-30) mmol/L Anion Gap mmol/L BUN (9-20) mg/dL Creatinine (0.8-1.3) mg/dL Estimated GFR ml/min BUN/Creatinine Ratio % Glucose (75-100) mg/dL POC Glucose 17 L 114 H (70-105) mg/dL Calcium (8.4-10.2) mg/dL 01/28/22 01/28/22 Range/Units 08:40 10:17 WBC (4.5-11.0) K/mm3 RBC (3.65-5.03) M/mm3 Hgb (11.8-15.2) gm/dl Hct (35.5-45.6) % MCV (84-94) fl MCH (28-32) pg MCHC (32-34) % RDW (13.2-15.2) % Plt Count (140-440) K/mm3 Lymph % (Auto) (13.4-35.0) % [place] % (Auto) (0.0-7.3) % Eos % (Auto) (0.0-4.3) % Baso % (Auto) (0.0-1.8) % Lymph # (Auto) (1.2-5.4) K/mm3 [place] # (Auto) (0.0-0.8) K/mm3 Eos # (Auto) (0.0-0.4) K/mm3 Baso # (Auto) (0.0-0.1) K/mm3 Seg Neutrophils % (40.0-70.0) % Seg Neutrophils # (1.8-7.7) K/mm3 Sodium 137 (137-145) mmol/L Potassium 3.9 (3.6-5.0) mmol/L Chloride 97.3 L (98-107) mmol/L Carbon Dioxide 22 (22-30) mmol/L Anion Gap 22 mmol/L BUN 40 H (9-20) mg/dL Creatinine 7.9 H (0.8-1.3) mg/dL Estimated GFR 9 ml/min BUN/Creatinine Ratio 5 % Glucose 145 H (75-100) mg/dL POC Glucose 169 H (70-105) mg/dL Calcium 9.7 (8.4-10.2) mg/dL - Medical Decision Making 51-year-old male presents to the hospital status post hypoglycemia likely secondary to delayed a.m. food intake. Patient mental status quickly improved after 1 amp of D50 and he tolerated oral intake in the ED. After eating and drinking juice his repeat glucose remained within normal range and patient feels ready to go home. He will be sent home with snacks in case he feels like his glucose is dropping. ED work-up included CT head, cervical spine, and labs only revealed chronic end-stage renal disease and patient is scheduled for dialysis tomorrow Critical Care Time: No Critical care attestation.: If time is entered above; I have spent that time in minutes in the direct care of this critically ill patient, excluding procedure time. ED Disposition Clinical Impression: Hypoglycemia due to insulin Disposition: 01 HOME / SELF CARE / HOMELESS Is pt being admited?: No Does the pt Need Aspirin: No Condition: Stable Instructions: Preventing Hypoglycemia Additional Instructions: Follow-up with your doctor or doctor/clinic provided. Return if symptoms worsen as indicated by your discharge instructions. Referrals: PRIMARY CARE, [Primary Care Provider] - 3-5 Days Time of Disposition: 11:16
--- NOTE | 2022-01-28 09:38 | Cat Scan Report ---
CT CERVICAL SPINE WITHOUT CONTRAST INDICATION: hypoglycemia, fall. Neck pain TECHNIQUE: All CT scans at this location are performed using CT dose reduction for ALARA by means of automated e xposure control. Axial CT images were obtained through the cervical spine. Sagittal and coronal reformatted images we re produced. COMPARISON: None available. FINDINGS: Fracture: None. Subluxation: None. Spinal canal: No significant compromise. Disc spaces: Moderate discogenic degenerative disease C5-7 Facet joints: Normal. Paraspinal soft tissues: No soft tissue swelling. Normal. Additional findings: Right internal jugular PermCath Lung apices: Normal. Linear scar/atelectasis right upper lobe. IMPRESSION: 1. No acute findings. Signer Name: Ángel Godfrey MD Signed: 01/28/2022 9:34 AM Workstation Name: [id number]
--- NOTE | 2022-01-28 09:44 | Cat Scan Report ---
CT head/brain wo con INDICATION / CLINICAL INFORMATION: 51 years Male; hypoglycemia, fall. TECHNIQUE: Routine CT head without contrast. All CT scans at this location are performed using CT dos e reduction for ALARA by means of automated exposure control. COMPARISON: 12/26/2020 FINDINGS: BRAIN / INTRACRANIAL CONTENTS: Very small talib hole is seen in the right frontoparietal calvarial reg ion with a small area of encephalomalacia in the adjacent middle frontal gyral region, extending towa rds the right lateral ventricle. This unchanged from prior. Small focus of dystrophic calcification i s seen in this region as well. Small lacunar infarct is seen in the anterior thalamic region on the left Richie unchanged from prior. T here is a small lacunar infarct in the globus pallidus region on the right, which is also unchanged. Old, small branch PICA infarct seen on the left-unchanged from prior. Otherwise, no acute hemorrhage, mass effect, midline shift, hydrocephalus, or acute, large territori al infarct. Mild, diffuse cerebral and cerebellar atrophy. There are mild areas of decreased attenuation in the white matter of the cerebral hemispheres. These are nonspecific findings and may be related to microangiopathy (hypertension, diabetes, atheroscleros is), given the patient's age. It might be difficult to evaluate for small areas of ischemia without d iffusion imaging by MRI. CRANIOCERVICAL JUNCTION: No significant abnormality. ORBITS: No significant abnormality of visualized orbits. SINUSES / MASTOIDS: Visualized paranasal sinuses and mastoid air cells are essentially clear. ADDITIONAL FINDINGS: Subcutaneous soft tissue swelling seen in the right occipital region. No signs o f underlying calvarial fracture. Atherosclerotic disease is seen in the anterior and posterior circulation. IMPRESSION: 1. No focal mass, hemorrhage, hydrocephalus, or acute, large territorial infarct. Signer Name: Luigi Gage MD, III Signed: 01/28/2022 9:40 AM Workstation Name: [email or web address]
[2022-01-28 10:18] VITALS: BP 135/91
== END 2022-01-28 12:08 | disposition home or self-care (01) ==
LOC: ED 08:12
DX: E11.649 Type 2 diabetes mellitus with hypoglycemia without coma (principal); Z86.73 Personal history of transient ischemic attack (TIA), and cerebral infarction without residual deficits; I12.0 Hypertensive chronic kidney disease with stage 5 chronic kidney disease or end stage renal disease; N18.6 End stage renal disease; Z86.718 Personal history of other venous thrombosis and embolism; R56.9 Unspecified convulsions; Z79.899 Other long term (current) drug therapy
CPT/HCPCS: 36415; 70450; 72125; 80048; 82962; 85025; 96374; 99284; J3490

== ENCOUNTER 2022-03-18 08:26 | Emergency (ER) | payer MEDICAID ==
[2022-03-18] MEDS ORDERED: GLUCAGON (HUMAN RECOMBINANT) 1 MG/ML INJ IM ONE (08:51)
--- NOTE | 2022-03-18 09:30 | Emergency Department Report ---
ED General Adult HPI - General Chief complaint: Hypoglycemia Stated complaint: hypoglycemia Time Seen by Provider: 03/18/22 08:51 Source: EMS Mode of arrival: Stretcher Limitations: Altered Mental Status - History of Present Illness Initial comments: Patient presents to the emergency department with a chief complaint of hypoglycemia. Patient presents to the ED via EMS without IV access or any glucose given. Patient's glucose on arrival was 15. Patient was given orange juice prior to me entering the room thus he is oriented and able to converse. He states that he took his insulin last night before going to bed and also states that he did not eat much as far as dinner is concerned. Patient denies chest pain, shortness breath, or abdominal pain -: Sudden Severity scale (0 -10): 0 Consistency: now resolved Improves with: none Worsens with: none Associated Symptoms: denies other symptoms Treatments Prior to Arrival: none - Related Data Home Medications Medication Instructions Recorded Confirmed Last Taken Aspirin [Lo-Dose Aspirin EC] 81 mg PO DAILY 09/02/17 01/28/22 01/27/22 Insulin Glargine,Hum.rec.anlog 32 units SQ BID 09/02/17 01/28/22 01/27/22 [Lantus] NovoLOG 100 UNITS/ML VIAL See Protocol SQ AC PRN 05/04/18 01/28/22 Unknown amLODIPine 10 units SQ DAILY 05/04/18 05/04/18 Unknown AtorvaSTATin [Lipitor] 40 mg PO QHS 08/31/21 01/28/22 01/27/22 amLODIPine 5 mg PO DAILY 01/28/22 01/28/22 01/27/22 Previous Rx's Medication Instructions Recorded Last Taken Type Epoetin Eyad-Epbx 10,000 Unit 10,000 unit IV DAMON vial 04/28/21 01/26/22 Rx [Retacrit] calcitrioL [Rocaltrol] 1 cap PO DAILY #30 cap 04/28/21 01/27/22 Rx Allergies Allergy/AdvReac Type Severity Reaction Status Date / Time No Known Allergies Allergy Verified 09/12/21 09:54 ED Review of Systems ROS: Stated complaint: hypoglycemia Other details as noted in HPI Comment: All other systems reviewed and negative Constitutional: denies: chills, fever Eyes: denies: eye pain, eye discharge, vision change ENT: denies: ear pain, throat pain Respiratory: denies: cough, shortness of breath, wheezing Cardiovascular: denies: chest pain, palpitations Endocrine: no symptoms reported Gastrointestinal: denies: abdominal pain, nausea, diarrhea Genitourinary: denies: urgency, dysuria Musculoskeletal: denies: back pain, joint swelling, arthralgia Skin: denies: rash, lesions Neurological: denies: headache, weakness, paresthesias Psychiatric: denies: anxiety, depression Hematological/Lymphatic: denies: easy bleeding, easy bruising ED Past Medical Hx - Past Medical History Hx Hypertension: Yes Hx CVA: Yes Hx Heart Attack/AMI: No Hx Congestive Heart Failure: No Hx Diabetes: Yes Hx Deep Vein Thrombosis: Yes Hx Pulmonary Embolism: No Hx Renal Disease: Yes (ESRD MWF HD) Hx Headaches / Migraines: No Hx Seizures: Yes Hx Asthma: No Hx COPD: No Hx Tuberculosis: No Hx Dementia: No Hx HIV: No Additional medical history: Vascath Right Chest Wall - Surgical History Hx Coronary Stent: No Hx Pacemaker: No Hx Internal Defibrillator: No Additional Surgical History: Dialysis shunt - Social History Smoking Status: Never Smoker - Medications Home Medications: Home Medications Medication Instructions Recorded Confirmed Last Taken Type Aspirin [Lo-Dose Aspirin EC] 81 mg PO DAILY 09/02/17 01/28/22 01/27/22 History Insulin Glargine,Hum.rec.anlog 32 units SQ BID 09/02/17 01/28/22 01/27/22 History [Lantus] NovoLOG 100 UNITS/ML VIAL See Protocol SQ AC PRN 05/04/18 01/28/22 Unknown History amLODIPine 10 units SQ DAILY 05/04/18 05/04/18 Unknown History Epoetin Eyad-Epbx 10,000 Unit 10,000 unit IV DAMON vial 04/28/21 01/28/22 Rx [Retacrit] calcitrioL [Rocaltrol] 1 cap PO DAILY #30 cap 04/28/21 01/28/22 01/27/22 Rx AtorvaSTATin [Lipitor] 40 mg PO QHS 08/31/21 01/28/22 01/27/22 History amLODIPine 5 mg PO DAILY 01/28/22 01/28/22 01/27/22 History ED Physical Exam - General Limitations: Altered Mental Status General appearance: alert, in no apparent distress - Head Head exam: Present: atraumatic, normocephalic - Eye Eye exam: Present: normal appearance, PERRL, EOMI - ENT ENT exam: Present: mucous membranes moist - Neck Neck exam: Present: normal inspection - Respiratory Respiratory exam: Present: normal lung sounds bilaterally. Absent: respiratory distress - Cardiovascular Cardiovascular Exam: Present: regular rate, normal rhythm. Absent: systolic murmur, diastolic murmur, rubs, gallop - GI/Abdominal GI/Abdominal exam: Present: soft, normal bowel sounds. Absent: distended, tenderness - Rectal Rectal exam: Present: deferred - Extremities Exam Extremities exam: Present: normal inspection - Back Exam Back exam: Present: normal inspection - Neurological Exam Neurological exam: Present: alert, oriented X3, CN II-XII intact. Absent: motor sensory deficit - Psychiatric Psychiatric exam: Present: normal affect, normal mood - Skin Skin exam: Present: warm, dry, intact, normal color. Absent: rash - Other Other exam information: Physical exam was done after the patient received orange juice thus the normal neurological exam ED Course Vital Signs 03/18/22 03/18/22 08:27 08:31 Temperature 98.7 F Pulse Rate 80 Respiratory 14 Rate Blood Pressure 108/64 [Right] O2 Sat by Pulse 100 99 Oximetry ED Medical Decision Making - Medical Decision Making Patient was given 2 mg of glucagon and p.o. glucose. Patient was also given a breakfast tray which included eggs and a protein. Patient's glucose after this intervention is a 77. Patient will now be given peanut butter crackers as well There is a issue with the glucometer transmitting laboratory value but the patient's glucose is greater than 150 please see nurses note. Critical care attestation.: If time is entered above; I have spent that time in minutes in the direct care of this critically ill patient, excluding procedure time. ED Disposition Clinical Impression: Hypoglycemia Disposition: 01 HOME / SELF CARE / HOMELESS Is pt being admited?: No Does the pt Need Aspirin: No Condition: Stable Instructions: Blood Glucose Monitoring, Adult, Hypoglycemia, Oync-wd-Esce Additional Instructions: return if worse Please remember to take an appropriate calories when taking insulin Referrals: SHINE RUIZ MD [Staff Physician] - 3-5 Days Time of Disposition: 10:39
[2022-03-18] MEDS ORDERED: glipiZIDE 10 MG TAB PO ONE (10:00)
[2022-03-18 10:51] VITALS: BP 129/87
== END 2022-03-18 10:54 | disposition home or self-care (01) ==
LOC: ED 08:26
DX: E11.649 Type 2 diabetes mellitus with hypoglycemia without coma (principal); E11.22 Type 2 diabetes mellitus with diabetic chronic kidney disease; I12.0 Hypertensive chronic kidney disease with stage 5 chronic kidney disease or end stage renal disease; N18.6 End stage renal disease; R56.9 Unspecified convulsions; Z86.73 Personal history of transient ischemic attack (TIA), and cerebral infarction without residual deficits; I82.409 Acute embolism and thrombosis of unspecified deep veins of unspecified lower extremity; Z98.890 Other specified postprocedural states
CPT/HCPCS: 82962; 96372; 99283; J1610

== ENCOUNTER 2022-06-25 07:38 | Emergency (ER) | payer MEDICAID ==
[2022-06-25 08:07] VITALS: BP 121/73
--- NOTE | 2022-06-25 10:30 | Emergency Department Report ---
ED General Adult HPI - General Chief complaint: Extremity Problem,Nontraumatic Stated complaint: DIALYSIS/PORT ACCESS ISSUES Time Seen by Provider: 06/25/22 08:46 Source: patient Mode of arrival: Ambulatory Limitations: No Limitations - History of Present Illness Initial comments: 51 YO COMES TO ER FROM HD CLINIC HE HAS RUE AV FISTULA PLACED 09/[address] MASON FOR HIS HD HAS BEEN ON HD FOR 1 YEAR STATES HE HAS HAD PROBLEMS ON HD FOR ABOUT 2 WEEKS WITH ACCESS PRESSURES TODAY THEY ACCESSED PT AND COULD NOT DO HD THEY PULLED CLOT FROM FISTULA DR CHERI RENAL, WAS CALLED AND PT SENT TO ER TO HAVE FISTULA EVALUATED LAST FULL SESSION ON SATURDAY PER PT Severity scale (0 -10): 0 - Related Data Home Medications Medication Instructions Recorded Confirmed Last Taken Aspirin [Lo-Dose Aspirin EC] 81 mg PO DAILY 09/02/17 01/28/22 01/27/22 Insulin Glargine,Hum.rec.anlog 32 units SQ BID 09/02/17 01/28/22 01/27/22 [Lantus] NovoLOG 100 UNITS/ML VIAL See Protocol SQ AC PRN 05/04/18 01/28/22 Unknown amLODIPine 10 units SQ DAILY 05/04/18 05/04/18 Unknown AtorvaSTATin [Lipitor] 40 mg PO QHS 08/31/21 01/28/22 01/27/22 amLODIPine 5 mg PO DAILY 01/28/22 01/28/22 01/27/22 Previous Rx's Medication Instructions Recorded Last Taken Type Epoetin Eyad-Epbx 10,000 Unit 10,000 unit IV DAMON vial 04/28/21 01/26/22 Rx [Retacrit] calcitrioL [Rocaltrol] 1 cap PO DAILY #30 cap 04/28/21 01/27/22 Rx Allergies Allergy/AdvReac Type Severity Reaction Status Date / Time No Known Allergies Allergy Verified 06/25/22 08:07 ED Review of Systems ROS: Stated complaint: DIALYSIS/PORT ACCESS ISSUES Other details as noted in HPI Comment: All other systems reviewed and negative ED Past Medical Hx - Past Medical History Previous Medical History?: Yes Hx Hypertension: Yes Hx CVA: Yes Hx Heart Attack/AMI: No Hx Congestive Heart Failure: No Hx Diabetes: Yes Hx Deep Vein Thrombosis: Yes Hx Pulmonary Embolism: No Hx Renal Disease: Yes (ESRD MWF HD) Hx Headaches / Migraines: No Hx Seizures: Yes Hx Asthma: No Hx COPD: No Hx Tuberculosis: No Hx Dementia: No Hx HIV: No Additional medical history: Vascath Right Chest Wall - Surgical History Past Surgical History?: Yes Hx Coronary Stent: No Hx Pacemaker: No Hx Internal Defibrillator: No Additional Surgical History: Dialysis shunt 09/17 DR MASON - Family History Family history: no significant - Social History Smoking Status: Never Smoker Substance Use Type: Alcohol - Medications Home Medications: Home Medications Medication Instructions Recorded Confirmed Last Taken Type Aspirin [Lo-Dose Aspirin EC] 81 mg PO DAILY 09/02/17 01/28/22 01/27/22 History Insulin Glargine,Hum.rec.anlog 32 units SQ BID 09/02/17 01/28/22 01/27/22 History [Lantus] NovoLOG 100 UNITS/ML VIAL See Protocol SQ AC PRN 05/04/18 01/28/22 Unknown History amLODIPine 10 units SQ DAILY 05/04/18 05/04/18 Unknown History Epoetin Eyad-Epbx 10,000 Unit 10,000 unit IV DAMON vial 04/28/21 01/28/22 01/26/22 Rx [Retacrit] calcitrioL [Rocaltrol] 1 cap PO DAILY #30 cap 04/28/21 01/28/22 01/27/22 Rx AtorvaSTATin [Lipitor] 40 mg PO QHS 08/31/21 01/28/22 01/27/22 History amLODIPine 5 mg PO DAILY 01/28/22 01/28/22 01/27/22 History ED Physical Exam - General Limitations: No Limitations General appearance: alert, in no apparent distress - Head Head exam: Present: atraumatic, normocephalic - Eye Eye exam: Present: normal appearance - ENT ENT exam: Present: mucous membranes moist - Neck Neck exam: Present: normal inspection - Respiratory Respiratory exam: Present: normal lung sounds bilaterally. Absent: respiratory distress - Cardiovascular Cardiovascular Exam: Present: regular rate, normal rhythm. Absent: systolic murmur, diastolic murmur, rubs, gallop - GI/Abdominal GI/Abdominal exam: Present: soft, normal bowel sounds - Rectal Rectal exam: Present: deferred - Extremities Exam Extremities exam: Present: normal inspection - Back Exam Back exam: Present: normal inspection - Neurological Exam Neurological exam: Present: alert, oriented X3 - Psychiatric Psychiatric exam: Present: normal affect, normal mood - Skin Skin exam: Present: warm, dry, intact, normal color, other. Absent: rash ED Course Vital Signs 06/25/22 08:00 Temperature 98.6 F Pulse Rate 63 Respiratory 18 Rate Blood Pressure 121/73 [Right] O2 Sat by Pulse 100 Oximetry - Reevaluation(s) Reevaluation #1: 06/25/22 12:59 INT LUE PLACED ED Medical Decision Making - Lab Data Result diagrams: 06/25/22 12:50 06/25/22 10:30 - Medical Decision Making LABS DRAWN AND PENDING CALL DR FRANK IF HD INDICATED DR SESSIONS REQUEST DR NICE BE CONSULTED DR NICE CONSULTED FOR AV FISTULA CONCERNS HE HAS SEEN AND EVALUATED PT PT WILL GO TO IR 1130 LABS STILL PENDING LAB HAS BEEN CALLED X2 AND THEY ARE WORKING ON IT. INT TO BE PLACED IN LUE BY RN PT UDPATED ON PLAN OF CARE Lab Results 06/25/22 Range/Units 10:30 Sodium 141 (137-145) mmol/L Potassium 4.7 (3.6-5.0) mmol/L Chloride 101.1 (98-107) mmol/L Carbon Dioxide 25 (22-30) mmol/L Anion Gap 20 mmol/L BUN 42 H (9-20) mg/dL Creatinine 11.6 H (0.8-1.3) mg/dL Estimated GFR 6 ml/min BUN/Creatinine Ratio 4 % Glucose 129 H (75-100) mg/dL Calcium 10.2 (8.4-10.2) mg/dL Phosphorus 4.20 (2.5-4.5) mg/dL NT-Pro-B Natriuret Pep 1019 H (0-900) pg/mL Vital Signs 06/25/22 08:00 Temperature 98.6 F Pulse Rate 63 Respiratory 18 Rate Blood Pressure 121/73 [Right] O2 Sat by Pulse 100 Oximetry 1300 PT WAITING TO GO TO IR REMAINS NPO 1415 SEE OP REPORT DISCUSSED WITH DR GONZALEZ PT WILL DC HOME AND GET HD WED PT IN AGREEMENT PT TOLERATED PROCEDURE WELL DC HOME WITH DC PLAN OF CARE INCLUDING DIET, MEDS, ACTIVITY AND FOLLOW UP HE VERBALIZES UNDERSTANDING OF PLAN OF CARE. - Differential Diagnosis AV FISTULA CLOT Critical care attestation.: If time is entered above; I have spent that time in minutes in the direct care of this critically ill patient, excluding procedure time. ED Disposition Clinical Impression: Complication of AV dialysis fistula, Acute on chronic renal failure Disposition: 01 HOME / SELF CARE / HOMELESS Is pt being admited?: No Does the pt Need Aspirin: No Condition: Stable Additional Instructions: follow up on Wed for planned HD session Referrals: PRIMARY CARE, [Primary Care Provider] - 3-5 Days Time of Disposition: 11:29
[2022-06-25 12:13] LABS: Calcium 10.2 mg/dL (8.4-10.2)
[2022-06-25] MEDS ORDERED: HEPARIN/NS 5000 UNIT/500ML 1,000 ML IR ONE (12:54)
[2022-06-25] MEDS ORDERED: HEPARIN 10,000 UNITS/10 ML VIAL ONE (12:54)
[2022-06-25] MEDS ORDERED: ceFAZolin/Water 2 GM/20 ML 2 GM/20 ML SYRINGE IV ONE (12:54)
[2022-06-25 12:59] LABS: Basophils # (Auto) 0.1 K/mm3 (0.0-0.1); Basophils % (Auto) 1.3 % (0.0-1.8); Eosinophils # (Auto) 0.3 K/mm3 (0.0-0.4); Eosinophils % (Auto) 3.6 % (0.0-4.3); Hematocrit 36.1 % (35.5-45.6); Lymphocytes # (Auto) 2.8 K/mm3 (1.2-5.4); Lymphocytes % (Auto) 35.9 % (13.4-35.0); Mean Corpuscular HGB Conc 33 % (32-34); Mean Corpuscular Volume 95 fl (84-94); Monocytes # (Auto) 0.7 K/mm3 (0.0-0.8); Monocytes % (Auto) 8.3 % (0.0-7.3); Platelet Count 167 K/mm3 (140-440); Red Blood Count 3.79 M/mm3 (3.65-5.03); Red Cell Distribution Width 13.9 % (13.2-15.2)
[2022-06-25] MEDS: LIDOCAINE 2%/EPINEPHRINE 1:200,000 VIAL (20 ML) INFILTRATI ONE ×2 (12:59→13:34)
[2022-06-25] MEDS ORDERED: NITROGLYCERIN DRIP 0 MG/0 ML BOTTLE ONE (13:00)
[2022-06-25] MEDS ORDERED: SODIUM CHLORIDE 0.9% 1000 ML 1,000 ML ONE (13:16)
[2022-06-25] MEDS: MIDAZOLAM 2 MG/2 ML INJ ONE ×3 (13:24→13:35)
[2022-06-25] MEDS: fentaNYL 100 MCG/2 ML INJ ONE ×3 (13:24→13:35)
--- NOTE | 2022-06-25 13:25 | Consultation ---
History of Present Illness - Reason for Consult Consult date: 06/25/22 RUE AV malfunction Requesting physician: VICTORINO FERNANDEZ - History of Present Illness 51 YO COMES TO ER FROM HD CLINIC HE HAS RUE AV FISTULA PLACED 09/[address] MASON FOR HIS HD; HAS BEEN ON HD FOR 1 YEAR STATES HE HAS HAD PROBLEMS ON HD FOR ABOUT 2 WEEKS WITH ACCESS PRESSURES TODAY THEY ACCESSED PT AND COULD NOT DO HD; THEY PULLED CLOT FROM FISTULA DR ALONZO RENAL, WAS CALLED AND PT SENT TO ER TO HAVE FISTULA EVALUATED LAST FULL SESSION ON SATURDAY PER PT Vascular consuted. RUE AV fistula has a thrill. Multiple bandaids from prior puncture sites. Mild RUE swelling. Had appointment for fistulogram on this . Will perform fistulogram today. Risks, benefits, and alaternatives discussed with patient. Past Medical History Hx Hypertension: Yes Hx CVA: Yes Hx Heart Attack/AMI: No Hx Congestive Heart Failure: No Hx Diabetes: Yes Hx Deep Vein Thrombosis: Yes Hx Pulmonary Embolism: No Hx Renal Disease: Yes (ESRD MWF HD) Hx Headaches / Migraines: No Hx Seizures: Yes Hx Asthma: No Hx COPD: No Hx Tuberculosis: No Hx Dementia: No Hx HIV: No Additional medical history: Vascath Right Chest Wall Surgical History Hx Coronary Stent: No Hx Pacemaker: No Hx Internal Defibrillator: No Additional Surgical History: Dialysis shunt 09/17 DR MASON Family History Family history: no significant Social History Smoking Status: Never Smoker Substance Use Type: Alcohol Medications and Allergies Allergies Allergy/AdvReac Type Severity Reaction Status Date / Time No Known Allergies Allergy Verified 06/25/22 08:07 Home Medications Medication Instructions Recorded Confirmed Last Taken Type Aspirin [Lo-Dose Aspirin EC] 81 mg PO DAILY 09/02/17 01/28/22 01/27/22 History Insulin Glargine,Hum.rec.anlog 32 units SQ BID 09/02/17 01/28/22 01/27/22 History [Lantus] NovoLOG 100 UNITS/ML VIAL See Protocol SQ AC PRN 05/04/18 01/28/22 Unknown History amLODIPine 10 units SQ DAILY 05/04/18 05/04/18 Unknown History Epoetin Eyad-Epbx 10,000 Unit 10,000 unit IV DAMON vial 04/28/21 01/28/22 01/26/22 Rx [Retacrit] calcitrioL [Rocaltrol] 1 cap PO DAILY #30 cap 04/28/21 01/28/22 01/27/22 Rx AtorvaSTATin [Lipitor] 40 mg PO QHS 08/31/21 01/28/22 01/27/22 History amLODIPine 5 mg PO DAILY 01/28/22 01/28/22 01/27/22 History Exam - Constitutional Vitals: Temp Pulse Resp BP Pulse Ox 98.6 F 63 18 121/73 100 06/25/22 08:00 06/25/22 08:00 06/25/22 08:00 06/25/22 08:00 06/25/22 08:00 - EENT Eyes: Present: EOM intact ENT: hearing intact - Neck Neck: Present: supple - Respiratory Respiratory effort: normal - Extremities Extremities: normal temperature, normal color, abnormal (thrill in RUE AV access) Extremity abnormal: other (no RUE numbness, weakness, or pain, mild swelling) - Abdominal General gastrointestinal: Present: soft, non-tender - Psychiatric Psychiatric: appropriate mood/affect, cooperative Results - Labs CBC & Chem 7: 06/25/22 12:50 06/25/22 10:30 Labs: Abnormal lab results 06/25/22 06/25/22 Range/Units 10:30 12:50 MCV 95 H (84-94) fl Lymph % (Auto) 35.9 H (13.4-35.0) % [place] % (Auto) 8.3 H (0.0-7.3) % BUN 42 H (9-20) mg/dL Creatinine 11.6 H (0.8-1.3) mg/dL Glucose 129 H (75-100) mg/dL NT-Pro-B Natriuret Pep 1019 H (0-900) pg/mL Assessment and Plan 51-year-old male with end-stage renal disease and right upper extremity AV graft who presents with AV graft malfunction. Thrill in AV graft noted. Mild swelling of the right upper extremity. Suspect venous anastomotic stenosis and possible outflow stenosis. Risk, benefits, and alternatives discussed regarding AV fistula intervention. Patient agrees to procedure. Recommend contacting patternmaker hand to determine if nephrology wishes to have patient admitted for inpatient dialysis or dialysis over the next few days.
--- NOTE | 2022-06-25 14:05 | Operative Report ---
Operative Report Operative Report: EXAM: Ultrasound guided access of the right arm AV graft Placement of a sheath towards the venous outflow Fistulogram Peripheral dialysis access angioplasty of the distal graft and venous anastomosis with a 10 mm x 40 mm angioplasty balloon DATE: 06/25/2022 SHAFTING CLEANER: JIA NICE MD INDICATION: AV graft malfunction requiring angioplasty and possible stenting MEDICATIONS: Please see nursing report for full details. DEVICES: 10 mm x 40 mm angioplasty balloon PROCEDURE: The risks, benefits, and alternatives of the procedure were discussed and written informed consent was obtained. The patient was transported in stable condition to the angiography suite. The patient's right arm AV graft was assessed by ultrasound and was patent. The patient was prepped and draped in a sterile fashion. Under ultrasound guidance, the right arm AV graft was accessed with a 21-gauge micropuncture needle. The area was anesthetized prior to access. 0.018 inch wire was advanced through the micropuncture needle into the fistula and then the needle was exchanged for a 5 Singaporean transitional dilator. The inner dilator and wire were removed and a 0.035 inch wire was advanced through the venous outflow. The transitional dilator was exchanged for a 7 Singaporean short sheath. Fistulogram was performed of the venous outflow and central veins. Reflux into the arterial anastomosis was performed. Digital subtraction angiography demonstrated 60% stenosis of the venous anastomosis with patency of the axillary vein, subclavian vein, right innominate vein, and SVC. The peripheral portion of the AV graft had a 30% irregularity. The rest of the AV graft was patent. The brachial artery proximal and distal to the anastomosis was patent. 10 mm x 40 mm angioplasty balloons used to perform angioplasty of the distal AV graft and venous anastomosis. Digital subtraction angiography demonstrated less than 10% residual stenosis. The wire was removed and the site was closed with a 3-0 Vicryl suture. The sheath was then removed. Hemostasis was achieved with slight manual compression. The patient was transported from the angiography suite to the floor in stable condition. IMPRESSION: Successful fistulogram and venoplasty as descibed above with a 10 mm x 40 mm angioplasty balloon.
== END 2022-06-25 14:15 | disposition home or self-care (01) ==
LOC: ED 07:38
DX: T82.590A Other mechanical complication of surgically created arteriovenous fistula, initial encounter (principal); I12.0 Hypertensive chronic kidney disease with stage 5 chronic kidney disease or end stage renal disease; E11.22 Type 2 diabetes mellitus with diabetic chronic kidney disease; N18.6 End stage renal disease; N17.9 Acute kidney failure, unspecified; Z79.899 Other long term (current) drug therapy; Z99.2 Dependence on renal dialysis; Z79.82 Long term (current) use of aspirin; Z79.4 Long term (current) use of insulin; Y84.1 Kidney dialysis as the cause of abnormal reaction of the patient, or of later complication, without mention of misadventure at the time of the procedure; Y92.89 Other specified places as the place of occurrence of the external cause
CPT/HCPCS: 36415; 36902; 80048; 83880; 84100; 85025; 96365; 96368; 96375; 99283; C1725; C1751; C1769; C1894; J0690; J1644; J2250; J3010; J3490; J7030; Q9967

== ENCOUNTER 2022-06-27 07:06 | Emergency (ER) | payer MEDICAID ==
[2022-06-27 10:13] LABS: Hematocrit 37.6 % (35.5-45.6); Hemoglobin 12.9 gm/dl (11.8-15.2); Mean Corpuscular HGB Conc 34 % (32-34); Mean Corpuscular Volume 94 fl (84-94); Platelet Count 181 K/mm3 (140-440); Red Cell Distribution Width 14.1 % (13.2-15.2)
[2022-06-27 10:21] LABS: Calcium 10.1 mg/dL (8.4-10.2)
--- NOTE | 2022-06-27 18:41 | Event Note ---
ED Screening Note Time: 09:17 ED Screening Note: 51-year-old male presents emergency department due to his dialysis access problem. In the setting of a significantly high volume and record number of patients presenting to the emergency department and the fact that we have a limited space to see patients we have implemented the provider in triage protocol this allows an expedited initial exam of patients that might otherwise have left without being seen or who would wait longer than usual to be seen by provider. I interviewed the patient and performed a limited physical exam. This patient is a pulled from the waiting room to triage room for an initial assessment of adrenal studies and then returned to the waiting room pending results of the studies. The ultimate final evaluation and disposition may be performed by another provider depending on room and provider availability.
--- NOTE | 2022-06-28 09:57 | Consultation ---
History of Present Illness - Reason for Consult Consult date: 06/28/22 end stage renal disease Medications and Allergies Allergies Allergy/AdvReac Type Severity Reaction Status Date / Time No Known Allergies Allergy Verified 06/25/22 08:07 Home Medications Medication Instructions Recorded Confirmed Last Taken Type Aspirin [Lo-Dose Aspirin EC] 81 mg PO DAILY 09/02/17 01/28/22 01/27/22 History Insulin Glargine,Hum.rec.anlog 32 units SQ BID 09/02/17 01/28/22 01/27/22 History [Lantus] NovoLOG 100 UNITS/ML VIAL See Protocol SQ AC PRN 05/04/18 01/28/22 Unknown History amLODIPine 10 units SQ DAILY 05/04/18 05/04/18 Unknown History Epoetin Eyad-Epbx 10,000 Unit 10,000 unit IV DAMON vial 04/28/21 01/28/22 01/26/22 Rx [Retacrit] calcitrioL [Rocaltrol] 1 cap PO DAILY #30 cap 04/28/21 01/28/22 01/27/22 Rx AtorvaSTATin [Lipitor] 40 mg PO QHS 08/31/21 01/28/22 01/27/22 History amLODIPine 5 mg PO DAILY 01/28/22 01/28/22 01/27/22 History Exam - Vital Signs Vital signs: Vital Signs Temp Pulse Resp BP Pulse Ox 97.8 F 65 18 150/87 99 06/27/22 07:56 06/27/22 07:56 06/27/22 07:56 06/27/22 07:56 06/27/22 07:56 Results - Lab Results 06/27/22 09:33 06/27/22 09:33 Most recent lab results Calcium 10.1 mg/dL (8.4-10.2) 06/27/22 09:33
[2022-06-28] MEDS ORDERED: SODIUM CHLORIDE 0.9% 100 ML IV PRN (09:58)
[2022-06-28] MEDS ORDERED: HEPARIN 10,000 UNITS/10 ML VIAL IV PRN (09:58)
--- NOTE | 2022-06-28 10:08 | Emergency Department Report ---
ED General Adult HPI - General Chief complaint: Pain General Stated complaint: CLOT IN DIALYSIS ACCESS Time Seen by Provider: 06/27/22 08:33 Source: patient Mode of arrival: Ambulatory Limitations: No Limitations - History of Present Illness Initial comments: 51-year-old male with a history of end-stage renal disease currently on dialysis who presents with problem with dialysis access. Patient was seen 3 days ago in the emergency room with a revision to vascular access by Dr. Holly but returned today with continuous problem with the access. No other modifying or associated factors reported. - Related Data Home Medications Medication Instructions Recorded Confirmed Last Taken Aspirin [Lo-Dose Aspirin EC] 81 mg PO DAILY 09/02/17 01/28/22 01/27/22 Insulin Glargine,Hum.rec.anlog 32 units SQ BID 09/02/17 01/28/22 01/27/22 [Lantus] NovoLOG 100 UNITS/ML VIAL See Protocol SQ AC PRN 05/04/18 01/28/22 Unknown amLODIPine 10 units SQ DAILY 05/04/18 05/04/18 Unknown AtorvaSTATin [Lipitor] 40 mg PO QHS 08/31/21 01/28/22 01/27/22 amLODIPine 5 mg PO DAILY 01/28/22 01/28/22 01/27/22 Previous Rx's Medication Instructions Recorded Last Taken Type Epoetin Eyad-Epbx 10,000 Unit 10,000 unit IV DAMON vial 04/28/21 01/26/22 Rx [Retacrit] calcitrioL [Rocaltrol] 1 cap PO DAILY #30 cap 04/28/21 01/27/22 Rx Allergies Allergy/AdvReac Type Severity Reaction Status Date / Time No Known Allergies Allergy Verified 06/25/22 08:07 ED Review of Systems ROS: Stated complaint: CLOT IN DIALYSIS ACCESS Other details as noted in HPI Comment: All other systems reviewed and negative Genitourinary: other (dialysis access problem ) ED Past Medical Hx - Past Medical History Hx Hypertension: Yes Hx CVA: Yes Hx Heart Attack/AMI: No Hx Congestive Heart Failure: No Hx Diabetes: Yes Hx Deep Vein Thrombosis: Yes Hx Pulmonary Embolism: No Hx Renal Disease: Yes (ESRD MWF HD) Hx Headaches / Migraines: No Hx Seizures: Yes Hx Asthma: No Hx COPD: No Hx Tuberculosis: No Hx Dementia: No Hx HIV: No Additional medical history: Vascath Right Chest Wall - Surgical History Past Surgical History?: No Hx Coronary Stent: No Hx Pacemaker: No Hx Internal Defibrillator: No Additional Surgical History: Dialysis shunt 09/17 DR MASON - Social History Smoking Status: Never Smoker Substance Use Type: Alcohol - Medications Home Medications: Home Medications Medication Instructions Recorded Confirmed Last Taken Type Aspirin [Lo-Dose Aspirin EC] 81 mg PO DAILY 09/02/17 01/28/22 01/27/22 History Insulin Glargine,Hum.rec.anlog 32 units SQ BID 09/02/17 01/28/22 01/27/22 History [Lantus] NovoLOG 100 UNITS/ML VIAL See Protocol SQ AC PRN 05/04/18 01/28/22 Unknown History amLODIPine 10 units SQ DAILY 05/04/18 05/04/18 Unknown History Epoetin Eyad-Epbx 10,000 Unit 10,000 unit IV DAMON vial 04/28/21 01/28/22 01/26/22 Rx [Retacrit] calcitrioL [Rocaltrol] 1 cap PO DAILY #30 cap 04/28/21 01/28/22 01/27/22 Rx AtorvaSTATin [Lipitor] 40 mg PO QHS 08/31/21 01/28/22 01/27/22 History amLODIPine 5 mg PO DAILY 01/28/22 01/28/22 01/27/22 History ED Physical Exam - General Limitations: No Limitations General appearance: alert, in no apparent distress - Head Head exam: Present: normal inspection - Neck Neck exam: Present: normal inspection. Absent: tenderness - Respiratory Respiratory exam: Present: normal lung sounds bilaterally. Absent: respiratory distress, accessory muscle use - Cardiovascular Cardiovascular Exam: Present: regular rate, normal rhythm, normal heart sounds - GI/Abdominal GI/Abdominal exam: Present: soft, normal bowel sounds. Absent: distended, tenderness - Extremities Exam Extremities exam: Present: other (right upper arm mild tenderness around dialysis access port) - Back Exam Back exam: Present: normal inspection. Absent: tenderness - Neurological Exam Neurological exam: Present: alert, oriented X3 - Psychiatric Psychiatric exam: Present: normal affect, normal mood - Skin Skin exam: Present: warm, normal color ED Course Vital Signs 06/27/22 06/28/22 06/28/22 07:56 09:23 11:00 Temperature 97.8 F 97.7 F Pulse Rate 65 75 80 Respiratory 18 17 16 Rate Blood Pressure 164/105 Blood Pressure 150/87 146/84 [Left] O2 Sat by Pulse 99 99 Oximetry O2 Sat by Pulse 100 Oximetry [ Bilateral Throughout] 06/28/22 06/28/22 06/28/22 11:18 11:30 11:45 Temperature Pulse Rate 81 81 76 Respiratory Rate Blood Pressure 151/91 143/91 144/87 Blood Pressure [Left] O2 Sat by Pulse Oximetry O2 Sat by Pulse Oximetry [ Bilateral Throughout] 06/28/22 06/28/22 06/28/22 12:00 12:15 12:30 Temperature Pulse Rate 80 77 84 Respiratory Rate Blood Pressure 137/78 147/79 141/80 Blood Pressure [Left] O2 Sat by Pulse Oximetry O2 Sat by Pulse Oximetry [ Bilateral Throughout] 06/28/22 06/28/22 06/28/22 12:45 13:00 13:15 Temperature Pulse Rate 78 81 81 Respiratory Rate Blood Pressure 147/91 139/88 134/78 Blood Pressure [Left] O2 Sat by Pulse Oximetry O2 Sat by Pulse Oximetry [ Bilateral Throughout] 06/28/22 06/28/22 13:30 13:51 Temperature Pulse Rate 83 88 Respiratory Rate Blood Pressure 150/84 128/73 Blood Pressure [Left] O2 Sat by Pulse Oximetry O2 Sat by Pulse Oximetry [ Bilateral Throughout] - Reevaluation(s) Reevaluation #1: 06/28/22 10:13 Dr Hancock came into ED and confirmed that the vascular access is wide open and that the sterilisation technician probably push the needle through into the tissue and cause infiltration around the vascular. He suggested to have patient dialyzed as soon as possible. I will call Dr Vera back for dialysis-- - Consultations Consultation #1: 06/28/22 10:06 Dr Hancock consulted who came to the room to reassess the patient. Consultation #2: 06/28/22 13:56 Dr Prescott consulted who accept pt for further evaluation and treatment ED Medical Decision Making - Lab Data Result diagrams: 06/27/22 09:33 06/27/22 09:33 - Medical Decision Making dialysis port occlusion -- Dr Hancock vascular surgeon consulted and Dr Vera research engineer notified and he also came to ED to see patient Considering that this patient has not had dialysis for the last 3 days will check routine labs for his renal profile and determine the need for urgent or emergent dialysis-- BUN/Cr noted to be elevated at 52/12.2 with normal potassium-- Critical care attestation.: If time is entered above; I have spent that time in minutes in the direct care of this critically ill patient, excluding procedure time. ED Disposition Clinical Impression: ESRD (end stage renal disease) on dialysis Dialysis AV fistula malfunction Qualifiers: Encounter type: subsequent encounter Qualified Code(s): T82.590D - Other mechanical complication of surgically created arteriovenous fistula, subsequent encounter Disposition: 09 ADMITTED INPATIENT Is pt being admited?: Yes Does the pt Need Aspirin: No Condition: Stable Referrals: PRIMARY CARE, [Primary Care Provider] - 3-5 Days Time of Disposition: 10:20
--- NOTE | 2022-06-28 11:37 | Consultation ---
History of Present Illness - Reason for Consult Consult date: 06/28/22 Clotted dialysis access - History of Present Illness Patient with a history of end-stage renal disease with right upper arm AV access who recently underwent evaluation and treatment. The patient also has a PermCath placed on the left. Patient was sent to the emergency department with a complaint of "thrombosed access" on evaluation, a strongly palpable thrill was present throughout the length of the access with evidence of infiltration along the lateral aspect of the fistula. Past History Past Medical History: dialysis, ESRD Past Surgical History: Other (Right arm AV graft) Social history: no significant social history Family history: no significant family history Medications and Allergies Allergies Allergy/AdvReac Type Severity Reaction Status Date / Time No Known Allergies Allergy Verified 06/25/22 08:07 Home Medications Medication Instructions Recorded Confirmed Last Taken Type Aspirin [Lo-Dose Aspirin EC] 81 mg PO DAILY 09/02/17 01/28/22 01/27/22 History Insulin Glargine,Hum.rec.anlog 32 units SQ BID 09/02/17 01/28/22 01/27/22 History [Lantus] NovoLOG 100 UNITS/ML VIAL See Protocol SQ AC PRN 05/04/18 01/28/22 Unknown History amLODIPine 10 units SQ DAILY 05/04/18 05/04/18 Unknown History Epoetin Eyad-Epbx 10,000 Unit 10,000 unit IV DAMON vial 04/28/21 01/28/22 01/26/22 Rx [Retacrit] calcitrioL [Rocaltrol] 1 cap PO DAILY #30 cap 04/28/21 01/28/22 01/27/22 Rx AtorvaSTATin [Lipitor] 40 mg PO QHS 08/31/21 01/28/22 01/27/22 History amLODIPine 5 mg PO DAILY 01/28/22 01/28/22 01/27/22 History Active Meds: Active Medications Heparin Sodium (Porcine) (Heparin 10,000 Units/10 Ml Vial) 3,000 unit IV DAMON PRN PRN Reason: hemodialysis Sodium Chloride (Nacl 0.9%) 100 mls @ 999 mls/hr IV DAMON PRN PRN Reason: Hypotension Review of Systems All systems: negative Exam - Constitutional Vitals: Temp Pulse Resp BP Pulse Ox 97.8 F 75 17 146/84 99 06/27/22 07:56 06/28/22 09:23 06/28/22 09:23 06/28/22 09:23 06/28/22 09:23 General appearance: Present: no acute distress - EENT Eyes: Present: EOM intact ENT: hearing intact - Neck Neck: Present: supple, normal ROM - Respiratory Respiratory effort: normal - Extremities Extremities: abnormal (Right upper arm AV graft with bruising consistent with infiltration) - Abdominal General gastrointestinal: Present: deferred Male genitourinary: Present: deferred - Rectal Rectal Exam: deferred - Psychiatric Psychiatric: appropriate mood/affect, cooperative Results - Labs CBC & Chem 7: 06/27/22 09:33 06/27/22 09:33 Assessment and Plan Patient's right upper arm AV graft has a strongly palpable thrill. The patient should be able to undergo successful dialysis with experienced nurses/technicians. No plans for any intervention given the strongly palpable thrill with no pulsatility to suggest even any outflow stenosis.
--- NOTE | 2022-06-28 13:56 | History and Physical Report ---
History of Present Illness Chief complaint: I need to get dialysis History of present illness: 51 YO Male with ESRD on HD(M,W,F), CVA, DM, DVT not on therapeutic anticoagulation, Seizure Disorder no on AED presents to ED for evaluation. Patient reports "I need dialysis". Patient states he was unable to undergo dialysis at his routine scheduled outpatient clinic due to malfunctioning dialysis access. Patient transported to [facility] via private vehicle for further care and evaluation of the aforementioned symptoms. The patient was seen and evaluated in the emergency department. All lab and imaging studies reviewed. Patient found to have end-stage renal disease in need of urgent dialysis. Vascular surgery team consulted in ED. Patient denies fever, chills, chest pain, palpitation, productive cough, skin rash, recent contact, or known exposure to COVID-19. Prior admission on 04/03/2021 reviewed. All medication listed at time of admission has been reconciled. Advanced care planning conducted in ED. Past History Past Medical History: dialysis, ESRD, other (See HPI) Past Surgical History: Other (Right arm AV graft) Social history: no significant social history Family history: no significant family history Medications and Allergies Allergies Allergy/AdvReac Type Severity Reaction Status Date / Time No Known Allergies Allergy Verified 06/25/22 08:07 Home Medications Medication Instructions Recorded Confirmed Last Taken Type Aspirin [Lo-Dose Aspirin EC] 81 mg PO DAILY 09/02/17 01/28/22 01/27/22 History Insulin Glargine,Hum.rec.anlog 32 units SQ BID 09/02/17 01/28/22 01/27/22 History [Lantus] NovoLOG 100 UNITS/ML VIAL See Protocol SQ AC PRN 05/04/18 01/28/22 Unknown History amLODIPine 10 units SQ DAILY 05/04/18 05/04/18 Unknown History Epoetin Eyad-Epbx 10,000 Unit 10,000 unit IV DAMON vial 04/28/21 01/28/22 01/26/22 Rx [Retacrit] calcitrioL [Rocaltrol] 1 cap PO DAILY #30 cap 04/28/21 01/28/22 01/27/22 Rx AtorvaSTATin [Lipitor] 40 mg PO QHS 08/31/21 01/28/22 01/27/22 History amLODIPine 5 mg PO DAILY 01/28/22 01/28/22 01/27/22 History Active Meds: Active Medications Heparin Sodium (Porcine) (Heparin 10,000 Units/10 Ml Vial) 3,000 unit IV DAMON PRN PRN Reason: hemodialysis Sodium Chloride (Nacl 0.9%) 100 mls @ 999 mls/hr IV DAMON PRN PRN Reason: Hypotension Review of Systems Constitutional: no weight loss, no weight gain, no fever, no sweats Ears, nose, mouth and throat: no ear pain, no ear discharge, no decreased hearing, no nose pain, no nasal congestion, no sinus pressure Cardiovascular: no chest pain, no palpitations, no rapid/irregular heart beat, no syncope Respiratory: no cough, no excessive sputum, no dyspnea on exertion Gastrointestinal: no abdominal pain, no nausea, no vomiting Genitourinary Male: no dysuria, no flank pain, no urinary hesitancy, no incontinence Rectal: no pain, no incontinence Musculoskeletal: no neck pain, no arm numbness/tingling, no shooting leg pain, no leg numbness/tingling, no redness of joints Integumentary: no rash, no redness, no sores, no wounds, no boils Neurological: no head injury, no paralysis, no weakness, no parathesias, no numbness, no tingling Psychiatric: no memory loss, no change in sleep habits, no insomnia, no hypersomnia, no change in appetite Endocrine: no cold intolerance, no excessive thirst, no polydipsia, no nocturia, no flushing Hematologic/Lymphatic: no easy bruising, no easy bleeding Allergic/Immunologic: no urticaria, no allergic rhinitis Exam - Constitutional Vitals: Temp Pulse Resp BP Pulse Ox 97.7 F 88 16 128/73 100 06/28/22 11:00 06/28/22 13:51 06/28/22 11:00 06/28/22 13:51 06/28/22 11:00 General appearance: Present: mild distress - EENT Eyes: Present: PERRL ENT: hearing intact, clear oral mucosa - Neck Neck: Present: supple, normal ROM - Respiratory Respiratory effort: normal Respiratory: bilateral: CTA - Cardiovascular Heart Sounds: Present: S1 & S2. Absent: rub, click - Extremities Extremities: pulses symmetrical, No edema Peripheral Pulses: within normal limits - Abdominal General gastrointestinal: Present: soft, non-tender, non-distended, normal bowel sounds Male genitourinary: Present: normal - Integumentary Integumentary: Present: clear, warm, dry - Musculoskeletal Musculoskeletal: gait normal, strength equal bilaterally - Psychiatric Psychiatric: appropriate mood/affect, intact judgment & insight - Neurologic Neurologic: CNII-XII intact, moves all extremities Results - Labs CBC & Chem 7: 06/27/22 09:33 06/27/22 09:33 Labs: Abnormal lab results 06/28/22 Range/Units 11:22 POC Glucose 403 H (70-105) mg/dL Assessment and Plan - Patient Problems (1) ESRD (end stage renal disease) on dialysis Current Visit: Yes Status: Acute Plan to address problem: Nephrology team consulted in ED, dialysis as per renal team, strict I's/O, monitor fluid Balance, avoid nephrotoxic agents. (2) Dialysis AV fistula malfunction Current Visit: Yes Status: Acute Qualifiers: Encounter type: subsequent encounter Qualified Code(s): T82.590D - Other mechanical complication of surgically created arteriovenous fistula, subsequent encounter Plan to address problem: Vascular surgery team consulted. (3) Diabetes Current Visit: Yes Status: Acute Plan to address problem: Consistent carbohydrate diet, Accu-Chek, insulin protocol, hypoglycemia protocol. (4) Seizure disorder Current Visit: Yes Status: Acute Plan to address problem: Seizure precautions, patient currently not prescribed antiepileptic therapy, (5) DVT prophylaxis Current Visit: Yes Status: Acute Plan to address problem: SCDs bilateral extremities while in bed (6) Advance care planning Current Visit: Yes Status: Acute Plan to address problem: Disease education conducted, care plan discussed, diagnoses discussed, prognosis discussed, patient is full code. Patient acknowledges understanding and agreement with care plan, +30 minutes. (7) Preventative health care Current Visit: Yes Status: Acute Plan to address problem: Patient counseled regarding outpatient follow-up with primary care physician for all age and risk factor appropriate screening tests patient counseled regarding renal diet, +30 minutes.
[2022-06-28] MEDS ORDERED: ACETAMINOPHEN 325 MG TAB PO PRN (13:57)
[2022-06-28] MEDS ORDERED: ONDANSETRON 4 MG/2 ML INJ IV PRN (13:57)
[2022-06-28] MEDS ORDERED: ALBUTEROL 2.5 MG/3 ML NEBU IH PRN (13:57)
[2022-06-28] MEDS ORDERED: HYDROmorphone 0.5 MG/0.5 ML INJ IV PRN (13:57)
[2022-06-28] MEDS ORDERED: oxyCODONE /ACETAMINOPHEN 5-325MG TAB PO PRN (13:57)
[2022-06-28] MEDS ORDERED: EPOETIN ALFA-EPBX 10,000 UNIT/1 ML VIAL IV SCH (14:00)
[2022-06-28 14:07] LABS: Hepatitis B Surface Antigen Non-Reactive (Negative); Hepatitis C Virus Antibody Reactive (NonReactive)
[2022-06-28 15:28] VITALS: BP 143/83
[2022-06-29] MEDS ORDERED: AMLODIPINE SQ SCH (10:00)
[2022-06-29] MEDS ORDERED: ASPIRIN EC 81 MG TAB PO SCH (10:00)
[2022-06-29] MEDS ORDERED: CALCITRIOL 0.5 MCG CAP PO SCH (10:00)
[2022-06-29] MEDS ORDERED: amLODIPine 10 MG TAB PO SCH (10:00)
== END 2022-06-28 09:58 | disposition admitted as inpatient to this hospital (09) ==
LOC: ED 07:06 → 3A 06-28 13:57 → UNDOADMIN 06-28 13:57
DX: N18.6 End stage renal disease (principal); T82.590A Other mechanical complication of surgically created arteriovenous fistula, initial encounter; E87.70 Fluid overload, unspecified
CPT/HCPCS: 36415; 80048; 80074; 82962; 85027; 99283; J1644